=== PATIENT | female | born 1940 | race Caucasian/White ===

== ENCOUNTER 2020-09-08 07:41 | Emergency (ER) | payer MEDICARE, SELFPAY ==
[2020-09-08 07:41] VITALS: BP 157/67; PULSE 105; RESP 24; TEMP 36.4; O2SAT 95; BMI 31.7
--- NOTE | 2020-09-08 07:52 | NURSING ---
NO OLD EKGS
--- NOTE | 2020-09-08 08:07 | RAD_ITS ---
STUDY: X-RAY CHEST REASON FOR EXAM: Female, 80 years old. Previous history of breast cancer. TECHNIQUE: Single AP portable view of the chest. COMPARISON: Prior comparison studies are not available for review at this time. FINDINGS: The opacity left retrocardiac region obscuring the left hemidiaphragm. Small left pleural effusion. There is mild cardiac enlargement. Normal mediastinum and raven. Normal visualized pulmonary arteries. Mild degenerative changes in the thoracic spine. Surgical clips in the left axilla. There is no demonstrated abnormality of the visualized soft tissue structures of the upper abdomen. RAD/Chest 1 View (Portable) IMPRESSION: Left retrocardiac infiltrate and small left pleural effusion. Electronically Signed: Vish Groves MD at 8:55 EST Tel , Service support ,
--- NOTE | 2020-09-08 08:08 | EKG12_ITS ---
Test Reason : Blood Pressure : / mmHG Vent. Rate : 075 BPM Atrial Rate : 072 BPM P-R Int : 000 ms QRS Dur : 072 ms QT Int : 368 ms P-R-T Axes : 000 006 058 degrees QTc Int : 410 ms Atrial fibrillation with premature ventricular or aberrantly conducted complexes Low voltage QRS Abnormal ECG Confirmed by KARLIE SANTANA, JUNAID ([id number]), senior technical editor NICK SEGAL ([id number]) on 09/10/2020 10:33:45 AM Referred By: CHARLI Confirmed By:JUNAID ZIEGLER MD
--- NOTE | 2020-09-08 08:11 | ED.DCSUM_ITS ---
- ER Visit Summary Date of Service: 09/08/20 Chief Complaint: Shortness of breath and nausea History of Present Illness: The patient is a 80 F who presents with shortness of breath and nausea for the past 3 days. Patient states this began after her most recent chemotherapy treatment. Patient states she feels swollen. Patient states it feels like she is having some swelling in her neck which is causing her to have breathing problems. Patient denies any vomiting. Patient states she has been drinking some fluids which has been helping. Patient does admit to some pain in her chest. Patient denies any fevers or chills. Patient does admit to some pain in her back. Patient also admits to some paresthesias in her left arm. Physical Examination: Vital signs are stable except for mild tachycardia of 105 and a mild tachypnea of 24. Patient is afebrile here. Patient is in no acute distress. Oral mucosa is pink and moist. Neck is supple. Trachea is midline. Airway is patent. Heart was regular rate and rhythm. Lungs are clear and equal bilaterally. Abdomen is soft. Bowel sounds are normal. There is mild diffuse tenderness. There is no rebound or guarding noted. Extremities are intact. There is no calf tenderness or edema. Cranial nerves II through XII are intact. There are no focal motor or sensory deficits noted. Test Results: EKG was obtained. On my interpretation, shows a normal sinus rhythm with a rate of 81. There are no acute ST or T wave changes noted. Portable chest x-ray was obtained. There is 1 view. On my interpretation, there is a left pleural effusion and left lower lobe infiltrate. There is some mild cardiomegaly noted. Bony thorax is normal. There is no pneumothorax. Radiologist also interpreted the x-ray and agrees. CBC, comprehensive metabolic profile, and urinalysis were obtained were all within normal limits. Troponin was normal. Emergency Department Course and Treatment: Patient was given a dose of morphine and Zofran here. Patient was given IV fluids. Patient was given a repeat dose of morphine. Patient was advised of her findings. Patient was given her first dose of Zithromax here. Patient was given a prescription for Zithromax. Parvin ent was given a prescription for tramadol since she is allergic to oxycodone. Patient was instructed to follow-up with her primary care physician and oncologist as scheduled. Patient understood and was agreeable with the plan. All questions were answered. Disposition: Discharge home Impression: 1. Pneumonia This note was generated with [employer] dictation software. It may contain incorrect words, spelling, and punctuation that were not noted in review of the chart prior to signing ED Disposition - Plan for ED Patient: Disposition: Home or Assisted Living Diagnosis: Pneumonia Instructions: ED Pneumonia (Adult) Prescriptions: traMADol [Ultram] 50 mg PO Q4H PRN PRN 3 Days #20 tab PRN Reason: Pain Prescription Printed Azithromycin [Zithromax] 250 mg PO DAILY #4 tab Prescription Printed Referrals: Amador Oropeza MD [Primary Care Provider] - 3-5 Days
[2020-09-08 08:19] LABS: Absolute Lymphocyte Count 0.64 X10^3/uL (0.83-4.51); Absolute Neutrophil Count 6.7 X10^3/uL (2.0-7.7); Basophil# 0.06 X10^3/uL; Basophil% 0.8 % (0-1); Hematocrit 41.1 % (37-47); Hemoglobin 13.2 g/dL (12.0-15.0); Lymphocyte # 0.64 X10^3/ul (4.0); Lymphocyte % 8.5 % (19-41); Mean Corp Hgb Conc 32.1 g/dL (32-36); Mean Corpuscular Hgb 29.9 pg (27.0-32.0); Mean Corpuscular Volume 93.2 fL (81-99); Mean Platelet Vol. 9.6 fl (6.2-12.0); Monocyte# 0.06 X10^3/uL; Monocyte% 0.8 % (0-10); NRBC Flagged by Analyzer 0 % (0-5); Neutrophil # 6.74 X10^3/uL (2.7-7.7); Neutrophil % 89.4 % (47-70); Platelet Count 237 K/mm3 (150-450); RBC Distribution Width CV 16.3 % (11.6-14.6); RBC Distribution Width SD 55.5 fl (35.1-43.9); Red Blood Count 4.41 M/mm3 (4.2-5.4); White Blood Count 7.5 K/mm3 (4.4-11.0)
[2020-09-08 08:32] LABS: ALB/GLOB Ratio 0.7 RATIO (0.9-2.4); AST(SGOT) 90 U/L (15-37); Alanine Aminotransfer ALT/SGPT 74 U/L (13-56); Albumin, Serum 2.5 g/dL (3.2-5.0); Alkaline Phosphatase 115 U/L (45-117); Anion Gap 4 (5-15); BUN 15 mg/dL (7-18); BUN/Creat Ratio 30.2 RATIO (10-20); Calcium,Total 7.8 mg/dL (8.5-10.1); Chloride 103 mmol/L (98-107); EST Glomerular Filtration Rate 127 mL/min (>60); Est Glom Filt Rate - Afr Amer 154 mL/min (>60); Estimated Creatinine Clearance 38.75 ml/min; Globulin 3.5 g/dL (2.2-4.2); Glucose 126 mg/dL (74-106); Potassium 3.8 mmol/L (3.5-5.1); Sodium Level 137 mmol/L (136-145)
[2020-09-08] MEDS: Ondansetron 4 MG/2 ML Vial IV (08:36)
[2020-09-08] MEDS: Morphine 4 MG/ML Syringe IV ×2 (08:36→09:50)
[2020-09-08] MEDS: 0.9% Normal Saline 1,000 ML 1000 ML IV (08:36)
[2020-09-08 08:41] VITALS: BP 123/73; PULSE 88; RESP 18; O2SAT 99
[2020-09-08 09:14] VITALS: BP 122/57; PULSE 80; RESP 20; O2SAT 95
--- NOTE | 2020-09-08 09:49 | ED.RN ---
pt states --i had to pee more i just didnt pee in the cup
[2020-09-08 09:50] LABS: Mucous, Urine 0 SEEN /hpf (<or=2+); Red Blood Cells-Urine 0 SEEN /hpf (0-5)
[2020-09-08 09:54] LABS: Color, Urine Yellow (Yellow); Glucose, Dipstick Normal (Normal); Ketone-Dipstick 15 mg/dl (Negative); Leukocyte Esterase-Dipstick 100 /ul (Negative); Nitrite-Dipstick Negative (Negative); Occult Blood-Urine 10 /ul (Negative); Protein-Dipstick Negative (Negative); Urine Bilirubin Dipstick Negative (Negative); Urine Clarity Sl. Cloudy (Clear); Urine Urobilinogen 1 mg/dl (Normal)
[2020-09-08 10:03] LABS: Bacteria RARE /hpf (None Seen); Squamous Epithelial Cells - UA 0-5 SEEN /hpf (5-10); White Blood Cells 0-5 SEEN /hpf (0-5)
[2020-09-08 10:19] VITALS: BP 135/61; PULSE 82; RESP 20; O2SAT 96
[2020-09-08] MEDS: Azithromycin 250 MG Tablet 500 MG PO (11:15)
[2020-09-08 11:18] VITALS: BP 142/59; PULSE 84; RESP 20; O2SAT 96
== END 2020-09-08 11:27 | disposition home or self-care (01) ==
PROVIDERS: Emergency Provider Emergency Medicine; PCP Family Medicine
DX: J18.9 Pneumonia, unspecified organism (principal)
CPT/HCPCS: 71045; 80053; 81001; 84484; 85025; 93005; 96361; 96374; 96375; 96376; 99285; J7030; A4216; J2405

== ENCOUNTER 2020-09-09 07:09 | Observation (INO) | payer MEDICARE, SELFPAY ==
[2020-09-08 07:41] VITALS: BMI 31.7
[2020-09-09] VITALS (7 sets, daily range): BP systolic 120–132; BP diastolic 52–73; PULSE 83–106; RESP 20–22; TEMP 36.2–37.2; O2SAT 95–97; BMI 30.9; BMI 33.4
--- NOTE | 2020-09-09 07:15 | ED.RN ---
Pt upset that we did not give her fluids yesterday and is upset that Dr Amador was not here to meet her when she arrived. Pt states that you nurses didnt do a damn thing for me when explained to that we can only do what the Dr orders she stated that the Dr was incompetent
--- NOTE | 2020-09-09 07:26 | EKG12_ITS ---
Test Reason : CP Blood Pressure : / mmHG Vent. Rate : 081 BPM Atrial Rate : 081 BPM P-R Int : 134 ms QRS Dur : 068 ms QT Int : 352 ms P-R-T Axes : 055 008 059 degrees QTc Int : 408 ms Normal sinus rhythm Low voltage QRS Borderline ECG Confirmed by KARLIE SANTANA, JUNAID ([id number]), supervising editor news reel NICK SEGAL ([id number]) on 09/10/2020 10:23:41 AM Referred By: MATT Confirmed By:JUNAID ZIEGLER MD
--- NOTE | 2020-09-09 07:27 | RAD_ITS ---
STUDY: X-RAY CHEST REASON FOR EXAM: Female, 80 years old. Worsening shortness of breath, nausea TECHNIQUE: Single AP portable view of the chest. COMPARISON: Yesterday FINDINGS: Stable opacification in the retrocardiac region obscuring the left hemidiaphragm. Small left pleural effusion. There is mild cardiac enlargement. Normal mediastinum and raven. Normal visualized pulmonary arteries. Mild degenerative changes in the thoracic spine. Surgical clips in the left axilla. There is no demonstrated abnormality of the visualized soft tissue structures of the upper abdomen. RAD/Chest 1 View (Portable) IMPRESSION: No interval change Electronically Signed: Anibal Simmons MD at 9:10 EST , Service support ,
[2020-09-09] MEDS: Morphine 4 MG/ML Syringe IV ×2 (07:44→09:04)
[2020-09-09] MEDS: 0.9% Normal Saline 1,000 ML 1000 ML IV (07:44)
[2020-09-09] MEDS: Ondansetron 4 MG/2 ML Vial IV ×2 (07:44→10:45)
[2020-09-09 07:45] LABS: Absolute Neutrophil Count 4.2 X10^3/uL (2.0-7.7); Basophil# 0.04 X10^3/uL; Basophil% 0.8 % (0-1); Eosinophils% 1.9 % (0-5); Hematocrit 38.6 % (37-47); Hemoglobin 12.3 g/dL (12.0-15.0); Lymphocyte % 13.6 % (19-41); Mean Corp Hgb Conc 31.9 g/dL (32-36); Mean Corpuscular Hgb 29.9 pg (27.0-32.0); Mean Corpuscular Volume 93.9 fL (81-99); Mean Platelet Vol. 8.9 fl (6.2-12.0); Monocyte# 0.06 X10^3/uL; Monocyte% 1.2 % (0-10); NRBC Flagged by Analyzer 0 % (0-5); Neutrophil # 4.22 X10^3/uL (2.7-7.7); Neutrophil % 82.1 % (47-70); Platelet Count 224 K/mm3 (150-450); RBC Distribution Width CV 16.3 % (11.6-14.6); RBC Distribution Width SD 56.3 fl (35.1-43.9); Red Blood Count 4.11 M/mm3 (4.2-5.4); White Blood Count 5.1 K/mm3 (4.4-11.0)
[2020-09-09 08:01] LABS: ALB/GLOB Ratio 0.7 RATIO (0.9-2.4); AST(SGOT) 228 U/L (15-37); Alanine Aminotransfer ALT/SGPT 186 U/L (13-56); Albumin, Serum 2.3 g/dL (3.2-5.0); Alkaline Phosphatase 178 U/L (45-117); Anion Gap 5 (5-15); BUN 17 mg/dL (7-18); BUN/Creat Ratio 27.5 RATIO (10-20); Calcium,Total 7.9 mg/dL (8.5-10.1); Chloride 101 mmol/L (98-107); Creatinine, Serum 0.62 mg/dL (0.55-1.02); EST Glomerular Filtration Rate 99 mL/min (>60); Est Glom Filt Rate - Afr Amer 120 mL/min (>60); Estimated Creatinine Clearance 38.75 ml/min; Globulin 3.4 g/dL (2.2-4.2); Glucose 131 mg/dL (74-106); Lipase 47 U/L (73-393); Potassium 3.6 mmol/L (3.5-5.1); Protein, Total 5.7 g/dL (6.4-8.2); Sodium Level 135 mmol/L (136-145)
--- NOTE | 2020-09-09 08:17 | ED.DCSUM_ITS ---
History of Present Illness Chief Complaint: Nausea/Vomiting Informant: Patient Onset: Days Maximum Severity: Mild Narrative: Presents complaining of vomiting unable to eat or drink cannot function or live at home, She was seen about 12 hours ago in the emergency department for the above she was diagnosed with possible left-sided pneumonia discharged home she had improved reports on repeat returning to home she had persistent vomiting and do es not feel she can function at home. She has a history of left breast cancer 2017 mastectomy with recurrence with metastasis to the chest wall July 2020 she has been on chemotherapy since then. Reports she had chemotherapy a few days ago that caused her to be nauseous and vomit quite a bit no real diarrhea no fever no cough no coronavirus exposures, She negates the chemotherapy is quite taxing to her and her chemotherapy has to be held sometimes she is not sure of her prognosis she is not sure if she is due for more chemo she does not believe she is had radiation therapy, She denies a history of NC PE DVT no GI issues, her current complaint is severe nausea Past Medical History - Allergies and Home Meds Allergies/Adverse Reactions: Allergies oxycodone Adverse Reaction (Verified 09/08/20 07:43) Vomiting Primary Care Physician: Amador Oropeza MD [Primary Care Provider] - Past Medical History: - - Breast cancer as above recent chemotherapy and as above Smoking Status: Never smoker Review of Systems General: Denies: Chills, Fever, Sweats Eyes: Denies: Visual changes - bilaterally, Diplopia ENT: Denies: Rhinorrhea, Sore throat Cardiovascular: Denies: Chest pain, Palpitations Respiratory: Denies: Dyspnea, Cough, Dyspnea on exertion Gastrointestinal: Reports: Nausea, Vomiting. Denies: Abdominal pain, Diarrhea, Melena, Hematochezia Genitourinary: Denies: Dysuria, Hematuria, Frequency Musculoskeletal: Denies: Back pain, Extremity Pain Skin: Denies: Rash, Wounds Neurological: Denies: Headache, Weakness, Numbness Physical Exam Vital Signs/Narrative: Vital Signs Temp Pulse Resp BP Pulse Ox 09/09/20 07:09 98.9 F 92 22 H 122/63 H 97 General: Well nourished, Well developed, No Acute Distress Head: Normocephalic, Atraumatic Eyes: Perrl, EOMI ENT: Moist mucous membranes, No rhinorrhea Neck: Supple, Nontender Cardiovascular: Regular rate, Regular rhythm, No murmurs, - - Mastectomy incision she indicates she has metastasis to this area she has some mild swelling to the upper arms related to the surgery and or the metastasis, there is no signs of active infection or any active issues Respiratory: No distress, CTA bilaterally, Chest nontender Abdomen: Soft, Nontender, Nondistended, Normal bowel sounds Back: Nontender, Normal Inspection Extremities: Nontender, No edema Skin: Normal color, No rash Neurological: Alert, Oriented x3, Cranial nerves II-XII grossly intact, Normal Strength, Normal Sensation Psychological: Normal affect, Normal Mood Diagnostic/Tx/Re-eval - Medical Decision Making Differential is extensive she has had breast cancer chemotherapy failed outpatient management, she indicates she was diagnosed with a pneumonia on her left lung when she was here yesterday at this time ED screening evaluation IV fluids Zofran The patient screening labs show elevated liver enzymes, X-ray to my review 1 view show left pleural effusion, may be cardiomegaly, see the radiology report generally concur, given all the above and failure of outpatient management spoke with the hospitalist will arrange for admission patient again indicates the pertinent information and studies she has done by her oncologist her metastasis is to the chest wall not to the lung or other parts of her body, given the potential for extension of disease hospitalist will arrange for further management inpatient basis Admit stable Impression final metastatic breast cancer, intractable nausea and vomiting, recent chemotherapy, left pleural effusion ED Disposition - Plan for ED Patient: Diagnosis: Metast breast cancer intractable nausea Referrals: Amador Oropeza MD [Primary Care Provider] -
[2020-09-09 08:51] LABS: Color, Urine Yellow (Yellow); Glucose, Dipstick Normal (Normal); Ketone-Dipstick 50 mg/dl (Negative); Leukocyte Esterase-Dipstick 500 /ul (Negative); Nitrite-Dipstick Negative (Negative); Occult Blood-Urine 10 /ul (Negative); Protein-Dipstick 30 mg/dl (Negative); Urine Bilirubin Dipstick Negative (Negative); Urine Clarity Sl. Cloudy (Clear); Urine Urobilinogen 1 mg/dl (Normal)
[2020-09-09 09:02] LABS: Bacteria 1+ /hpf (None Seen); Mucous, Urine 2+ /hpf (<or=2+); Red Blood Cells-Urine 0-5 SEEN /hpf (0-5); Squamous Epithelial Cells - UA 5-10 SEEN /hpf (5-10); Transitional Epithelial - Ur 0-5 SEEN /hpf (0-5); White Blood Cells 5-10 SEEN /hpf (0-5)
--- NOTE | 2020-09-09 10:04 | US_ITS ---
STUDY: ABDOMINAL ULTRASOUND - RIGHT UPPER QUADRANT REASON FOR VISIT: Female, 80 years old ELEVATED LIVER ENZYMES -- N/V -- ON CHEMO -- HX OF METEASTATIC BREAST CA -- HX OF CHOLECYSTECTOMY 15 YEARS AGO TECHNIQUE: Ultrasound evaluation of the right upper quadrant was performed with real-time and static stanley-scale imaging. TECHNICAL QUALITY: Adequate. COMPARISON: None. FINDINGS: Liver: The liver measures 16.1 cm. There is a heterogeneous echogenicity of the liver. The bile ducts are within normal limits. There is hepatic color flow. The direction of portal flow is hepatopetal. There is no demonstrated mass lesion. Gallbladder: The patient is status post cholecystectomy.. Common Bile Duct (C.B.D.): The common bile duct measures 10 mm. Pancreas: Normal size of the head, body and tail of the pancreas. There is normal echogenicity of the pancreas. There is no demonstrated pancreatic mass or cyst. Right Kidney: Normal size of the right kidney. The right kidney measures 11.2 cm. Normal renal cortex. The right cortex measures 1.1 cm. There is no demonstrated renal mass or cyst. There is no right hydronephrosis. US/Abdomen Limited IMPRESSION: Heterogeneous hepatic echotexture which may be secondary to cirrhosis or hepatitis. Mass including metastatic disease is of concern, correlation with the CT would be useful. Small amount of ascites. Electronically Signed: Kiko Farah MD at 13:36 EST Tel , Service support ,
--- NOTE | 2020-09-09 10:04 | PCM.HP.STD ---
Problem List (1) Nausea and vomiting Status: Acute Qualifiers: Vomiting type: unspecified Vomiting Intractability: unspecified Qualified Code(s): R11.2 - Nausea with vomiting, unspecified History of Present Illness Date of Admission: 09/09/20 Chief Complaint: Nausea and vomiting The patient is a 80 year old F who was seen in the emergency room at [facility] today with complaints of nausea and vomiting. She was seen in the ER yesterday at [facility] and was diagnosed as having a pneumonia, was placed on Zithromax and discharged home. Patient denies any fevers or chills, she denies any abdominal discomfort. Patient is being actively treated for recurrence of breast cancer which first occurred in 2018. I talked with her oncologist by phone today who states that she had a CT of her chest and abdomen performed around of this year, it showed a pleural effusion on the left side, no discernible liver metastases were noted. Patient did have lymphadenopathy on the chest CT. 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 She is on Lovenox 80 mg subcu every 12 hours. Work-up in the emergency room today included a CBC which was unremarkable, patient's chemistry panel was remarkable for an elevated AST, ALT, and alkaline phosphatase. According to her oncologist, her liver enzymes have not been elevated before. Patient did undergo chemo on Thursday this past week. Chest x-ray obtained today shows a sizable left pleural effusion, no discernible infiltrates were noted by this examiner on inspection of the chest x-ray images. Patient will be admitted for uncontrolled nausea and vomiting, she will be given IV fluids and antiemetics, I talked at length with the patient's daughter about her medical care. Daughter states that the patient was not happy when she was released from the emergency room yesterday and felt she needed to be admitted for IV fluid administration. Patient is not hypoxic at this time on room air, she may have to undergo a thoracentesis however because the daughter states that she is short of breath at home on exertion. I will have nursing walker today on room air to see if there is a desaturation. Past Medical History Allergies oxycodone Adverse Reaction (Verified 09/08/20 07:43) Vomiting Home Medications: Ambulatory Orders Medication Instructions Recorded Azithromycin [Zithromax] 250 mg PO DAILY #4 tab 09/08/20 traMADol [Ultram] 50 mg PO Q4H PRN PRN 3 Days #20 tab 09/08/20 Surgical History: appendectomy, cataract, cholecystectomy, hysterectomy, - - Double mastectomy Psychiatric History: No pertinent psych hx PUBLIC HEALTH REPRESENTATIVE History: No pertinent PUBLIC HEALTH REPRESENTATIVE history Lives: Spouse/ Significant Other Smoking Status: Never smoker Tobacco Use: Non-smoker Alcohol: None Drugs: None - *Family History Maternal History Items: Heart Disease Paternal History Items: - - Alcoholism Review of Systems Constitutional: Denies: Anorexia, Chills, Fever, Night Sweats, Malaise, Weakness, Weight Change, Fatigue Eyes: Denies: Cataracts, Conjunctivae Inflammation, Double vision, Drainage HEENT: Denies: Dysphasia, Ear Pain, Eye Pain, Hearing Changes, Nasal bleeding, Nasal Congestion, Post Nasal Drip Cardiovascular: Denies: Chest Pain, Claudication, Chest Pressure, Chest Tightness, Edema, Palpitations Respiratory: Reports: Shortness of Breath, Shortness of breath upon exertion. Denies: Cough, Hemoptysis, Pleuritic Pain, Shortness of breath at rest Gastrointestinal: Denies: Abdominal Pain, Constipation, Diarrhea, Hematemesis, Hematochezia, Nausea, Melena, Vomiting Genitourinary: Denies: Dysuria, Frequency, Hematuria, Hesitancy, Nocturia, Retention, Urgency Gynecological: Reports: Breast symptoms - Recent history of recurrent metastatic breast cancer Musculoskeletal: Denies: Foot Pain, Hand Pain, Joint Pain, Joint stiffness, Joint swelling, Joint Tenderness, Leg Pain Skin: Denies: Dryness, Jaundice, Pruritis, Rash Neurological: Denies: Blurred vision, Double vision, Change in Speech, Slurred speech, Difficulty swallowing, Focal weakness, Headaches, Incoordination, Numbness, Tingling Psychiatric: Denies: Anxiety, Depression, Homicidal Ideations, Suicidal Ideations Endocrine: Denies: Change in Body Habitus, Heat/ Cold Intolerance, Polydipsia, Polyuria Hematologic/ Lymphatic: Reports: Hx of blood clot - Recent history of VTE left arm secondary to compression of the venous return from recurrent left breast cancer. Denies: Adenopathy, Anemia, Easy Bruising, Easy Bleeding, Petechiae, Purpura VTE Information - Inpt Only VTE Present on Admission: Yes - Patient was recently diagnosed with VTE of the left arm, she is under treat VTE Mechan Device Prophylaxis: None VTE Pharm Prophylaxis ordered?: No - Physical Exam Vitals/I&O's: Vital Signs Temp Pulse Resp BP Pulse Ox 98.9 F 92 22 H 122/63 H 97 09/09/20 07:09 09/09/20 07:09 09/09/20 07:09 09/09/20 07:09 09/09/20 07:09 Oxygen Delivery Method Room Air Weight: 81.647 kg Body Mass Index (BMI) 30.9 General: Alert, Oriented x3, Cooperative, Well developed, Well nourished, - - Patient appears nauseated HEENT: Atraumatic, PERRLA, EOMI, Normocephalic Oral: Moist Mucosa Neck: Supple, No JVD, Negative Carotid Bruits, Trachea Midline, Thyroid Normal Size and Texture Lungs: Clear to auscultation, Normal air movement, No rhonchi, No wheeze, No rales Cardiovascular: Regular rate, Regular Rhythm, Normal S1, Normal S2, No murmurs, No Ectopic Activity, PMI Normal, No rub noted, No Gallop Abdomen: Bowel Sounds Present, Soft, Non Tender, Non-Distended Extremities: No clubbing, No cyanosis, No edema, Capillary Refill Less than 3 Seconds Skin: No rashes, No breakdown Musculoskeletal: No Tenderness to Palpation of Joints or Extremities Neurological: Cranial nerves II-XII grossly intact, Neuro grossly intact, Sensory exam intact to light touch and pain Psych/Mental Status: Normal Affect, Appropriate, Alert and oriented to time, place, person, mood and affect Laboratory Results 09/09/20 07:37: WBC 5.1, RBC 4.11 L, Hgb 12.3, Hct 38.6, MCV 93.9, MCH 29.9, MCHC 31.9 L, RDW Std Deviation 56.3 H, RDW Coeff of Katelyn 16.3 H, Plt Count 224, MPV 8.9, Immature Gran % (Auto) 0.400, Neut % (Auto) 82.1 H, Lymph % (Auto) 13.6 L, [place] % (Auto) 1.2, Eos % (Auto) 1.9, Baso % (Auto) 0.8, Absolute Neuts (auto) 4.2, Absolute Lymphs (auto) 0.70 L, Nucleated RBC % 0 01/10/21 07:37: Sodium 135 L, Potassium 3.6, Chloride 101, Carbon Dioxide 29.0, Anion Gap 5, BUN 17, Creatinine 0.62, Estim Creat Clear Calc 38.75, Est GFR (MDRD) Af Amer 120, Est GFR (MDRD) Non-Af 99, BUN/Creatinine Ratio 27.5 H, Glucose 131 H, Calcium 7.9 L, Total Bilirubin 0.70, AST 228 H, ALT 186 H, Alkaline Phosphatase 178 H, Total Protein 5.7 L, Albumin 2.3 L, Globulin 3.4, Albumin/Globulin Ratio 0.7 L, Lipase 47 L 09/09/20 08:43: Urine Color Yellow, Urine Clarity Sl. Cloudy, Urine pH 6.0, Ur Specific Robinson 1.020, Urine Protein 30 H, Urine Glucose (UA) Normal, Urine Ketones 50 H, Urine Occult Blood 10 H, Urine Nitrite Negative, Urine Bilirubin Negative, Urine Urobilinogen 1 H, Ur Leukocyte Esterase 500 H, Urine RBC 0-5 SEEN, Urine WBC 5-10 SEEN, Ur Squamous Epith Cells 5-10 SEEN, Ur Transition Epith Cell 0-5 SEEN, Urine Bacteria 1+, Urine Mucus 2+ Assessment/Plan All Active Problems Nausea and vomiting (Acute) #1 nausea and vomiting-etiology unclear at this point, patient will be placed in observation status on MedSurg 3, she will receive IV fluids and antiemetics, labs will be monitored. #2 elevated liver enzymes-exact etiology unclear at this point, patient will undergo an ultrasound of the liver, labs will be rechecked #3 chronic left pleural effusion-we will have the patient ambulate on room air, if her O2 sat drops, she will need a left thoracentesis performed. #4 recent VTE left arm-patient is currently on Lovenox 80 mg twice daily #5 Metastatic breast cancer #6 essential hypertension-patient does not know all of her blood pressure medications, I have asked the daughter to call in with a list of her medications. OBSV E&M: [id number] Initial observation care L3
[2020-09-09] MEDS: 0.9% Normal Saline 1,000 ML 125 ML IV ×2 (10:37→20:17)
[2020-09-09] MEDS: Enoxaparin 80 MG/0.8 ML Syringe SC ×2 (10:37→20:34)
[2020-09-09] MEDS: fentaNYL 100 MCG/2 ML Ampul 50 MCG IV (11:43)
[2020-09-09] MEDS: proMETHazine 25 MG Tablet PO (12:17)
--- NOTE | 2020-09-09 16:02 | NURSING ---
Patient ambulated a couple of minutes in room on room air and the lowest her pulse ox dropped was 95%. Dr. Coffey states no thoracentesis. Patient made aware.
[2020-09-09] MEDS: Gabapentin 300 MG Capsule PO (20:33)
[2020-09-09] MEDS: fentaNYL 100 MCG/2 ML Ampul 25 MCG IV (23:36)
[2020-09-10] VITALS (13 sets, daily range): BP systolic 131–147; BP diastolic 62–73; PULSE 81–100; RESP 16–22; TEMP 36.3–37.1; O2SAT 92–96
[2020-09-10] MEDS: 0.9% Normal Saline 1,000 ML 125 ML IV ×4 (03:38→20:11)
[2020-09-10 04:56] LABS: Absolute Lymphocyte Count 1.11 X10^3/uL (0.83-4.51); Absolute Neutrophil Count 2.3 X10^3/uL (2.0-7.7); Basophil# 0.05 X10^3/uL; Basophil% 1.4 % (0-1); Eosinophil# 0.04 X10^3/uL; Eosinophils% 1.1 % (0-5); Hematocrit 31.5 % (37-47); Hemoglobin 10.2 g/dL (12.0-15.0); Lymphocyte # 1.11 X10^3/ul (4.0); Lymphocyte % 30.7 % (19-41); Mean Corp Hgb Conc 32.4 g/dL (32-36); Mean Corpuscular Hgb 30.6 pg (27.0-32.0); Mean Corpuscular Volume 94.6 fL (81-99); Mean Platelet Vol. 9.1 fl (6.2-12.0); Monocyte# 0.05 X10^3/uL; Monocyte% 1.4 % (0-10); NRBC Flagged by Analyzer 0 % (0-5); Neutrophil # 2.34 X10^3/uL (2.7-7.7); Neutrophil % 64.8 % (47-70); Platelet Count 198 K/mm3 (150-450); RBC Distribution Width CV 16.3 % (11.6-14.6); RBC Distribution Width SD 56.3 fl (35.1-43.9); Red Blood Count 3.33 M/mm3 (4.2-5.4); White Blood Count 3.6 K/mm3 (4.4-11.0)
[2020-09-10 05:15] LABS: ALB/GLOB Ratio 0.7 RATIO (0.9-2.4); AST(SGOT) 191 U/L (15-37); Alanine Aminotransfer ALT/SGPT 165 U/L (13-56); Albumin, Serum 1.9 g/dL (3.2-5.0); Alkaline Phosphatase 191 U/L (45-117); Anion Gap 5 (5-15); BUN 15 mg/dL (7-18); BUN/Creat Ratio 36.3 RATIO (10-20); Chloride 108 mmol/L (98-107); Creatinine, Serum 0.41 mg/dL (0.55-1.02); EST Glomerular Filtration Rate 157 mL/min (>60); Est Glom Filt Rate - Afr Amer 190 mL/min (>60); Estimated Creatinine Clearance 38.75 ml/min; Globulin 2.8 g/dL (2.2-4.2); Glucose 91 mg/dL (74-106); Potassium 3.3 mmol/L (3.5-5.1); Protein, Total 4.7 g/dL (6.4-8.2); Sodium Level 140 mmol/L (136-145)
[2020-09-10] MEDS: Gabapentin 300 MG Capsule PO ×3 (05:33→20:30)
[2020-09-10] MEDS: 0.9% Saline Lock 10 ML Syringe IV ×2 (07:46→18:37)
[2020-09-10] MEDS: fentaNYL 100 MCG/2 ML Ampul 25 MCG IV ×3 (07:47→18:37)
--- NOTE | 2020-09-10 07:57 | PN_ITS ---
Patient Problems: Active and Suspected Problems Nausea and vomiting (Acute) Reason for Visit: Nausea and vomiting Hypokalemia Subjective: Patient is an 80-year-old lady with history of recurrent metastatic breast CA currently undergoing chemo admitted with intractable nausea vomiting Objective: GENERAL: cooperative HEENT: Atraumatic; EYES; Anicteric, Normal Conjunctiva NECK; supple, normal thyroid, RESPIRATORY: Diminished to auscultation CARDIOVASCULAR: Regular S1 S2, GI: soft, normoactive bowel sounds, : No Renal angle tenderness; EXTREMITIES: No edema, no clubbing, MUSCULOSKELETAL: no muscle waisting NEURO: Awake; no lateralizing signs. SKIN: No Rash PSYCH; Flat affect Vitals/I&O's: Vital Signs Temp Pulse Resp BP Pulse Ox 97.4 F L 98 18 147/62 H 96 09/10/20 07:51 09/10/20 07:51 09/10/20 07:51 09/10/20 07:51 09/10/20 07:51 Oxygen Delivery Method Room Air Weight: 88.36 kg Body Mass Index (BMI) 33.4 Intake and Output for Last 24 Hours 09/08/20 09/09/20 09/10/20 23:59 23:59 23:59 Intake Total 2350.00 / 2350.00 918.75 / 918.75 Output Total 100 / 100 Balance 2250.00 / 2250.00 918.75 / 918.75 Laboratory Results 09/09/20 07:37: Sodium 135 L, Potassium 3.6, Chloride 101, Carbon Dioxide 29.0, Anion Gap 5, BUN 17, Creatinine 0.62, Estim Creat Clear Calc 38.75, Est GFR (MDRD) Af Amer 120, Est GFR (MDRD) Non-Af 99, BUN/Creatinine Ratio 27.5 H, Glucose 131 H, Calcium 7.9 L, Total Bilirubin 0.70, AST 228 H, ALT 186 H, Alkaline Phosphatase 178 H, Total Protein 5.7 L, Albumin 2.3 L, Globulin 3.4, Albumin/Globulin Ratio 0.7 L, Lipase 47 L 09/09/20 08:43: Urine Color Yellow, Urine Clarity Sl. Cloudy, Urine pH 6.0, Ur Specific [place] 1.020, Urine Protein 30 H, Urine Glucose (UA) Normal, Urine Ketones 50 H, Urine Occult Blood 10 H, Urine Nitrite Negative, Urine Bilirubin Negative, Urine Urobilinogen 1 H, Ur Leukocyte Esterase 500 H, Urine RBC 0-5 SEEN, Urine WBC 5-10 SEEN, Ur Squamous Epith Cells 5-10 SEEN, Ur Transition Epith Cell 0-5 SEEN, Urine Bacteria 1+, Urine Mucus 2+ 09/10/20 04:40: WBC 3.6 L, RBC 3.33 L, Hgb 10.2 L, Hct 31.5 L, MCV 94.6, MCH 30.6, MCHC 32.4, RDW Std Deviation 56.3 H, RDW Coeff of Katelyn 16.3 H, Plt Count 198, MPV 9.1, Immature Gran % (Auto) 0.600, Neut % (Auto) 64.8, Lymph % (Auto) 30.7, [place] % (Auto) 1.4, Eos % (Auto) 1.1, Baso % (Auto) 1.4 H, Absolute Neuts (auto) 2.3, Absolute Lymphs (auto) 1.11, Nucleated RBC % 0 09/10/20 04:40: Sodium 140, Potassium 3.3 L, Chloride 108 H, Carbon Dioxide 27.0, Anion Gap 5, BUN 15, Creatinine 0.41 L, Estim Creat Clear Calc 38.75, Est GFR (MDRD) Af Amer 190, Est GFR (MDRD) Non-Af 157, BUN/Creatinine Ratio 36.3 H, Glucose 91, Calcium 7.0 L, Total Bilirubin 0.70, AST 191 H, ALT 165 H, Alkaline Phosphatase 191 H, Total Protein 4.7 L, Albumin 1.9 L, Globulin 2.8, A lbumin/Globulin Ratio 0.7 L Current Medications Amlodipine Besylate (Amlodipine 5 Mg Tablet) 5 mg PO DAILY [facility] Anastrozole (Anastrozole 1 Mg Tablet) 1 mg PO DAILY [facility] Enoxaparin Sodium (Enoxaparin 80 Mg/0.8 Ml Syringe) 80 mg SC Q12 [facility] Last Admin: 09/09/20 20:34 Dose: 80 mg Documented by: Fentanyl Citrate (Fentanyl 100 Mcg/2 Ml Ampul) 25 mcg IV Q4H PRN PRN PRN Reason: Pain Score 1-10 Last Admin: 09/10/20 07:47 Dose: 25 mcg Documented by: Gabapentin (Gabapentin 300 Mg Capsule) 300 mg PO TID [facility] Last Admin: 09/10/20 05:33 Dose: 300 mg Documented by: Sodium Chloride () 1,000 mls @ 125 mls/hr IV .Q8H [facility]HAL[facility] Last Admin: 09/10/20 03:38 Dose: 125 mls/hr Documented by: Losartan Potassium (Losartan Potassium 50 Mg Tablet) 50 mg PO DAILY [facility] Ondansetron HCl (Ondansetron 4 Mg/2 Ml Vial) 4 mg IV Q6H PRN PRN PRN Reason: NAUSEA/VOMITING Last Admin: 09/09/20 10:45 Dose: 4 mg Documented by: Pantoprazole Sodium (Pantoprazole Sodium 20 Mg Tablet) 20 mg PO DAILY [facility] Sodium Chloride (0.9% Saline Lock 10 Ml Syringe) 10 - 40 ml IV UD PRN PRN Reason: SALINE FLUSH Last Admin: 09/10/20 07:46 Dose: 10 ml Documented by: Temazepam (Temazepam 15 Mg Capsule) 15 mg PO QHS PRN PRN PRN Reason: INSOMNIA STROKE Vital Signs/Narrative: Vital Signs Temp Pulse Resp BP Pulse Ox 09/10/20 07:51 97.4 F L 98 18 147/62 H 96 09/10/20 04:07 98.7 F 92 16 131/72 H 94 09/10/20 04:00 81 Medical Necessity - Tobacco Use Smoking Status: Never smoker Tobacco Use: Non-smoker Assessment/Plan All Active Problems Nausea and vomiting (Acute) Patient is an 80-year-old lady with history of recurrent metastatic breast CA currently undergoing chemo admitted with intractable nausea vomiting 1. Intractable nausea vomiting ?Suspected to be secondary to gastritis admitted to regular nursing floor for symptomatic management in addition to PPI 2. Acute transaminitis To be secondary to frequent use of acetaminophen. Admitted to regular nursing floor with serial hepatic function tests ordered. No significant improvement in her transaminitis 3. Chronic left-sided pleural effusion ?Malignant pleural effusion plan is for patient to undergo thoracocentesis if patient becomes symptomatic 4. VTE involving the left upper extremity ?Patient is on Lovenox 5. Hypertension - Blood pressure controlled, home medications continued with dose adjustment as needed 6. Hypokalemia ?Corrected per protocol 7. Metastatic breast CA ?Currently being managed as outpatient 8. Hypokalemia ?Corrected per protocol Advance planning; did discuss with the patient regarding advanced directives as well as CODE STATUS. Did explain the various scenarios involved ( FULL CODE, DNR CCA, DNR CCA with no intubation, and DNR CC and what each meant) patient elected full code with CPR and intubation if needed. Order was placed. Time spent on discussion 18 minutes. OBSV E&M: 94636 Subsequent observation care L3 Procedures: 41604 Advncd Care Plan 30 Min
[2020-09-10] MEDS: Enoxaparin 80 MG/0.8 ML Syringe SC ×2 (10:07→20:32)
[2020-09-10] MEDS: Losartan Potassium 50 MG Tablet PO (10:08)
[2020-09-10] MEDS: Pantoprazole Sodium 20 MG Tablet PO (10:08)
[2020-09-10] MEDS: Anastrozole 1 MG TABLET PO (10:08)
[2020-09-10] MEDS: amLODIPine 5 MG Tablet PO (10:09)
[2020-09-10] MEDS: NYSTATIN 500,000 UNIT/5 ML UDC 500000 UNIT PO ×3 (13:26→20:31)
--- NOTE | 2020-09-10 14:41 | CASEMGMT ---
CANDICE BIRD in to complete SHARMA form with patient. RN PELON explained SHARMA form to patient, patient voiced understanding. Patient signed SHARMA form and placed in chart. CANDICE BIRD provided patient copy of signed SHARMA form. Patient had no further symptoms or concerns at this time.
--- NOTE | 2020-09-10 19:00 | NURSING ---
level of care change per policy for fentanyl admin.
[2020-09-11] VITALS (9 sets, daily range): BP systolic 115–163; BP diastolic 55–71; PULSE 70–100; RESP 16–24; TEMP 36.6–37.1; O2SAT 92–98
--- NOTE | 2020-09-11 | FLU_PTH ---
PATIENT: RTISTAN DAVIS LOC: MS3 U#:[id number] AGE/SX: 80/F [place] [facility] [place]: Dr. Yovany Bedolla MD : 1940 BED: 1 DIS: 09/12/2020 SPEC #: [id number] RECD: 09/11/20 15:14 STATUS: ESTEVAN REKaterin #: [id number] THONY: 09/11/20 00:[address]: Yovany Bedolla DEPT: CYTOLOGY RECD BY: Sushil Oropeza ENTERED: 09/12/20 08:46 SP TYPE: Fluid OTHR DR: DO Dr. Yung Bejarano, DO Dr. Amador Oropeza MD Tissues: THORACIC FLUID Procedures: Special Stain Group II Surgery Specimen Level IV Cytospin Fluid HEADER OPERATION: Thoracentesis, left PRE-OP DIAGNOSIS: Pleural effusions TISSUE SUBMITTED: Thoracentesis fluid for cytology DIAGNOSIS CYTOLOGY Thoracentesis fluid for cytology (cytospin and cell block): Positive for malignant cells consistent with non-small cell carcinoma. See comment. AM:valerie 09/13/2020 COMMENT Immunohistochemistry ([id number]) supports the above diagnosis and favors a breast primary. Clinical correlation is suggested. Case has been reviewed in consultation with Dr. Amato who concurs with the above diagnosis. IDC:SJ CYTOLOGY STUDY Slides are reviewed. CYTOLOGY GROSS Received is 90 ml of yellow, cloudy fluid labeled with the patient's name and and designated per the requisition as thoracentesis. Submitted for cytology preparation including cell block. / valerie 09/12/2020 TC:0 CPT: 56281, 56182
--- NOTE | 2020-09-11 | IMM_PTH ---
PATIENT: TRISTAN DAVIS LOC: MS3 U#:[id number] AGE/SX: 80/F ROOM: [facility] [place] RE09/09/[address]: Dr. Yovany Bedolla MD : 1940 BED: 1 DIS: 09/12/2020 SPEC #: [id number] RECD: 09/13/20 12:42 STATUS: SOUErlinda REQ #: [id number] THONY: 09/11/20 00:[address]: Yovany Bedolla DEPT: IMMUNOHISTOCHEMISTRY RECD BY: Portia Gutiérrez ENTERED: 09/13/20 12:44 SP TYPE: IMMUNO OTHR DR: Dr. Navin Fregoso, DO Dr. Yung Amador, DO Dr. Amador Oropeza MD Tissues: THORACIC FLUID Procedures: NAPSIN A (add) CK14 (add) CK20 (add) CK5-6 (add) CK7 (add) CK8 (add) CARDONA-2 (add) MAMM (add) P53 (add) NE (add) TTF1 (add) Pankeratin (add) GATA3 (add) P40 (add) ER (initial) S-100 (add) PHYSICIAN & INSTITUTION [place] [id number] SPECIMEN INFORMATION: Tissue Source: Thoracentesis fluid Clinical Info: Pleural effusions Specimen Number: [id number] CPT code: 86963, 33670 x15 METHODOLOGY: Deparaffinized sections of prefer/formalin-fixed tissue or PAP/DQ stained slides are incubated with monoclonal/polyclonal antibodies/oligonucleotide probes. Localization is made via biotin free immunoperoxidase method. Appropriate controls are performed and reacted as expected. Results on target cell population are indicated in the following table: RESULTS: ANTIBODY / CLONE RESULT ER (6F11) negative NE (1E2) negative Mammaglobin (31A5) negative, occasional GATA3 (L50-823) positive AE1-3 (AE1/AE3/PCK26) positive CK7 (OV-TL12/30) positive CK8 (17qutxQ11) positive CK20 (KS20.8) negative CARDONA-2 (SP21) positive S-100 (4C4.9) negative TTF-1 (8G7G3/1) negative Napsin A (Rabbit Polyclonal) negative CK5-6 (D5 & 1684) negative CK14 (LL002) negative P40 (BC28) positive P53 (DO-7) positive, >95% These tests were developed and their performance characteristics determined by [facility]. They may not have been cleared or approved by the U.S. Food and Drug Administration. The FDA has determined that such clearance or approval is not necessary. The above immunohistochemical/dualISH markers are ordered and reviewed by the Pathologist. INTERPRETATION: Thoracentesis fluid: Metastatic non-small cell carcinoma. See comment. AM:valerie 09/14/2020 Comment: The IHC profile favors a breast primary. Clinical correlation is necessary. Case has been reviewed in consultation with Dr. Amato who concurs with the above diagnosis. IDC:SJ
[2020-09-11] MEDS: 0.9% Normal Saline 1,000 ML 125 ML IV (03:46)
[2020-09-11 05:55] LABS: Absolute Neutrophil Count 1.3 X10^3/uL (2.0-7.7); Basophil# 0.05 X10^3/uL; Eosinophil# 0.04 X10^3/uL; Eosinophils% 1.6 % (0-5); Hematocrit 32.8 % (37-47); Hemoglobin 10.4 g/dL (12.0-15.0); Mean Corp Hgb Conc 31.7 g/dL (32-36); Mean Corpuscular Hgb 30.2 pg (27.0-32.0); Mean Corpuscular Volume 95.3 fL (81-99); Mean Platelet Vol. 8.7 fl (6.2-12.0); Monocyte# 0.08 X10^3/uL; Monocyte% 3.3 % (0-10); NRBC Flagged by Analyzer 0 % (0-5); Neutrophil # 1.25 X10^3/uL (2.7-7.7); Neutrophil % 51.3 % (47-70); Platelet Count 166 K/mm3 (150-450); RBC Distribution Width CV 16.3 % (11.6-14.6); RBC Distribution Width SD 56.8 fl (35.1-43.9); Red Blood Count 3.44 M/mm3 (4.2-5.4); White Blood Count 2.4 K/mm3 (4.4-11.0)
[2020-09-11] MEDS: Gabapentin 300 MG Capsule PO ×3 (06:26→17:52)
[2020-09-11 06:31] LABS: ALB/GLOB Ratio 0.6 RATIO (0.9-2.4); AST(SGOT) 122 U/L (15-37); Alanine Aminotransfer ALT/SGPT 116 U/L (13-56); Alkaline Phosphatase 151 U/L (45-117); Anion Gap 6 (5-15); BUN 15 mg/dL (7-18); BUN/Creat Ratio 36.4 RATIO (10-20); Calcium,Total 7.2 mg/dL (8.5-10.1); Chloride 112 mmol/L (98-107); Creatinine, Serum 0.41 mg/dL (0.55-1.02); EST Glomerular Filtration Rate 158 mL/min (>60); Est Glom Filt Rate - Afr Amer 191 mL/min (>60); Estimated Creatinine Clearance 38.75 ml/min; Globulin 3.1 g/dL (2.2-4.2); Glucose 102 mg/dL (74-106); Potassium 3.5 mmol/L (3.5-5.1); Protein, Total 5.1 g/dL (6.4-8.2); Sodium Level 142 mmol/L (136-145)
--- NOTE | 2020-09-11 07:36 | DCINST_ITS ---
- Discharge Diagnoses Current Active Problems: Current Active and Chronic Problems Nausea and vomiting (Acute) You will use the following diet at home:: No restrictions Discharge Activity: May not drive while taking narcotic pain medications. Allergies/Adverse Reactions: Allergies cephalexin [From Keflex] Allergy (Verified 09/09/20 10:39) Rash oxycodone Adverse Reaction (Verified 09/08/20 07:43) Vomiting Medications to take at Discharge traMADol [Ultram] 50 mg PO Q4H PRN PRN 3 Days #20 tab 09/08/20 Acetaminophen [Tylenol] 500 mg PO Q4H PRN PRN 09/09/20 Amlodipine [Norvasc] 5 mg PO DAILY 09/09/20 Anastrozole [Arimidex] 1 mg PO DAILY 09/09/20 Enoxaparin [Lovenox] 80 mg SC Q12@0600,1800 09/09/20 Gabapentin [Neurontin] 300 mg PO TID 09/09/20 Hydrochlorothiazide [Hctz] 25 mg PO DAILY 09/09/20 Losartan Potassium 50 mg PO DAILY 09/09/20 Magnesium Oxide 500 mg PO DAILY 09/09/20 Omeprazole [Prilosec] 20 mg PO DAILY 09/09/20 Ondansetron [Zofran] 8 mg PO Q8H PRN PRN 09/09/20 Tramadol HCl 50 mg PO Q6H PRN 09/09/20 Vit C/E/Zn/Coppr/Lutein/Zeaxan [Preservision Areds 2 Softgel] 2 tab PO DAILY 09/09/20 proMETHazine tablet [Phenergan tablet] 25 mg PO Q6H PRN PRN 09/09/20 Ciprofloxacin [Cipro] 500 mg PO BID #6 tab 09/11/20 Nystatin 500,000 unit PO 4X/DAY #40 udc 09/11/20 Potassium Chloride [K-Dur] 20 meq PO BIDCM #30 tab 09/11/20 The following prescriptions were given: Ciprofloxacin [Cipro] 500 mg PO BID #6 tab Transmission Status: Pending to [id number] Potassium Chloride [K-Dur] 20 meq PO BIDCM #30 tab Transmission Status: Pending to [id number] Nystatin 500,000 unit PO 4X/DAY #40 udc Transmission Status: P[id number] Primary Care Physician: Amador Oropeza MD [Primary Care Provider] - Please follow up with your Primary Care Physician in: in 1-2 weeks Test Results: Test results from this visit will be discussed in further detail at your follow- up appointment, if applicable. Proposed Discharge Date: 09/11/20
--- NOTE | 2020-09-11 07:37 | DS.PCM_ITS ---
Discharge Date and Diagnosis - Problem List Patient Problems: Active and Suspected Problems Nausea and vomiting (Acute) Date of Admission: 09/09/20 Date of Discharge: 09/11/20 - Primary Discharge Diagnosis Acute Problems: Active Problems Nausea and vomiting (Acute) Hospital Course and Treatment Summary of Care Provided: Patient is an 80-year-old lady with history of recurrent metastatic breast CA currently undergoing chemo admitted with intractable nausea vomiting 1. Intractable nausea vomiting ?Suspected to be secondary to gastritis admitted to regular nursing floor for symptomatic management in addition to PPI 2. Acute transaminitis To be secondary to frequent use of acetaminophen. Admitted to regular nursing floor with serial hepatic function tests ordered. No significant improvement in her transaminitis 3. Acute cystitis ?Patient was prescribed ciprofloxacin 500 mg p.o. twice daily for 3 days on discharge 4. Chronic left-sided pleural effusion ?Malignant pleural effusion plan is for patient to undergo thoracocentesis if patient becomes symptomatic 5. Hypertension - Blood pressure controlled, home medications continued with dose adjustment as needed 6. Hypokalemia ?Corrected per protocol 7. Metastatic breast CA ?Currently being managed as outpatient 8. Hypokalemia ?Corrected per protocol 9. VTE involving the left upper extremity ?Patient is on Lovenox Patient Problems: Active and Suspected Problems Nausea and vomiting (Acute) Objective: GENERAL: cooperative HEENT: Atraumatic; EYES; Anicteric, Normal Conjunctiva NECK; supple, normal thyroid, RESPIRATORY: Diminished to auscultation CARDIOVASCULAR: Regular S1 S2, GI: soft, normoactive bowel sounds, : No Renal angle tenderness; EXTREMITIES: No edema, no clubbing, MUSCULOSKELETAL: no muscle waisting NEURO: Awake; no lateralizing signs. SKIN: No Rash PSYCH; Flat affect - Physical Exam Vitals/I&O's: Vital Signs Temp Pulse Resp BP Pulse Ox 98.1 F 82 16 131/60 H 92 09/11/20 03:44 09/11/20 05:41 09/11/20 03:44 09/11/20 03:44 09/11/20 03:44 Oxygen Delivery Method Room Air Weight: 88.36 kg Body Mass Index (BMI) 33.4 Intake and Output for Last 24 Hours 09/09/20 09/10/20 09/11/20 23:59 23:59 23:59 Intake Total 2350.00 / 2350.00 3141.66 / 3141.66 947.92 / 947.92 Output Total 100 / 100 500 / 500 Balance 2250.00 / 2250.00 3141.66 / 3141.66 447.92 / 447.92 Laboratory Results 09/11/20 05:44: WBC 2.4 L, RBC 3.44 L, Hgb 10.4 L, Hct 32.8 L, MCV 95.3, MCH 30.2, MCHC 31.7 L, RDW Std Deviation 56.8 H, RDW Coeff of Katelyn 16.3 H, Plt Count 166, MPV 8.7, Immature Gran % (Auto) 0.800, Neut % (Auto) 51.3, Lymph % (Auto) 41.0, [place] % (Auto) 3.3, Eos % (Auto) 1.6, Baso % (Auto) 2.0 H, Absolute Neuts (auto) 1.3 L, Absolute Lymphs (auto) 1.00, Nucleated RBC % 0 09/11/20 05:44: Sodium 142, Potassium 3.5, Chloride 112 H, Carbon Dioxide 24.0, Anion Gap 6, BUN 15, Creatinine 0.41 L, Estim Creat Clear Calc 38.75, Est GFR (MDRD) Af Amer 191, Est GFR (MDRD) Non-Af 158, BUN/Creatinine Ratio 36.4 H, Glucose 102, Calcium 7.2 L, Total Bilirubin 0.50, AST 122 H, ALT 116 H, Alkaline Phosphatase 151 H, Total Protein 5.1 L, Albumin 2.0 L, Globulin 3.1, Albumin/Globulin Ratio 0.6 L Current Medications Amlodipine Besylate (Amlodipine 5 Mg Tablet) 5 mg PO DAILY [facility] Last Admin: 09/10/20 10:09 Dose: 5 mg Documented by: Anastrozole (Anastrozole 1 Mg Tablet) 1 mg PO DAILY [facility] Last Admin: 09/10/20 10:08 Dose: 1 mg Documented by: Enoxaparin Sodium (Enoxaparin 80 Mg/0.8 Ml Syringe) 80 mg SC Q12 [facility] Last Admin: 09/10/20 20:32 Dose: 80 mg Documented by: Fentanyl Citrate (Fentanyl 100 Mcg/2 Ml Ampul) 25 mcg IV Q4H PRN PRN PRN Reason: Pain Score 1-10 Last Admin: 09/10/20 18:37 Dose: 25 mcg Documented by: Gabapentin (Gabapentin 300 Mg Capsule) 300 mg PO TID [facility] Last Admin: 09/11/20 06:26 Dose: 300 mg Documented by: Sodium Chloride () 1,000 mls @ 125 mls/hr IV .Q8H [facility] Last Admin: 09/11/20 03:46 Dose: 125 mls/hr Documented by: Losartan Potassium (Losartan Potassium 50 Mg Tablet) 50 mg PO DAILY [facility] Last Admin: 09/10/20 10:08 Dose: 50 mg Documented by: Nystatin (Nystatin 500,000 Unit/5 Ml Udc) 500,000 unit PO 4X/DAY [facility] Last Admin: 09/10/20 20:31 Dose: 500,000 unit Documented by: Ondansetron HCl (Ondansetron 4 Mg/2 Ml Vial) 4 mg IV Q6H PRN PRN PRN Reason: NAUSEA/VOMITING Last Admin: 09/09/20 10:45 Dose: 4 mg Documented by: Pantoprazole Sodium (Pantoprazole Sodium 20 Mg Tablet) 20 mg PO DAILY [facility] Last Admin: 09/10/20 10:08 Dose: 20 mg Documented by: Potassium Chloride (Potassium Chloride 20 Meq Tablet) 20 meq PO BIDCM [facility] Last Admin: 09/10/20 16:20 Dose: 20 meq Documented by: Sodium Chloride (0.9% Saline Lock 10 Ml Syringe) 10 - 40 ml IV UD PRN PRN Reason: SALINE FLUSH Last Admin: 09/10/20 18:37 Dose: 10 ml Documented by: Temazepam (Temazepam 15 Mg Capsule) 15 mg PO QHS PRN PRN PRN Reason: INSOMNIA Discharge Diet: No Restrictions Discharge Activity: May not drive while taking narcotic pain medications. Home Medications: Medications to take at Discharge traMADol [Ultram] 50 mg PO Q4H PRN PRN 3 Days #20 tab 09/08/20 Acetaminophen [Tylenol] 500 mg PO Q4H PRN PRN 09/09/20 Amlodipine [Norvasc] 5 mg PO DAILY 09/09/20 Anastrozole [Arimidex] 1 mg PO DAILY 09/09/20 Enoxaparin [Lovenox] 80 mg SC Q12@0600,1800 09/09/20 Gabapentin [Neurontin] 300 mg PO TID 09/09/20 Hydrochlorothiazide [Hctz] 25 mg PO DAILY 09/09/20 Losartan Potassium 50 mg PO DAILY 09/09/20 Magnesium Oxide 500 mg PO DAILY 09/09/20 Omeprazole [Prilosec] 20 mg PO DAILY 09/09/20 Ondansetron [Zofran] 8 mg PO Q8H PRN PRN 09/09/20 Tramadol HCl 50 mg PO Q6H PRN 09/09/20 Vit C/E/Zn/Coppr/Lutein/Zeaxan [Preservision Areds 2 Softgel] 2 tab PO DAILY 09/09/20 proMETHazine tablet [Phenergan tablet] 25 mg PO Q6H PRN PRN 09/09/20 Ciprofloxacin [Cipro] 500 mg PO BID #6 tab 09/11/20 Nystatin 500,000 unit PO 4X/DAY #40 udc 09/11/20 Potassium Chloride [K-Dur] 20 meq PO BIDCM #30 tab 09/11/20 Following Prescriptions Were Given to Patient: Ciprofloxacin [Cipro] 500 mg PO BID #6 tab Transmission Status: [id number] Potassium Chloride [K-Dur] 20 meq PO BIDCM #30 tab Transmission Status: [id number] Nystatin 500,000 unit PO 4X/DAY #40 udc Transmission Status: [id number] Primary Care Physician: Amador Oropeza MD [Primary Care Provider] - Please follow up with your Primary Care Physician in: in 1-2 weeks Disposition: Home Minutes spent on discharge:: 35 Patient Condition:: Stable Medical Necessity - Tobacco Use Smoking Status: Never smoker Tobacco Use: Non-smoker Meaningful Use Info Meaningful Use Diagnoses (Choose all that apply): None applicable OBSV E&M: 88212 Observation care discharge
--- NOTE | 2020-09-11 08:43 | PCS.PANDOC ---
PANDEMIC DOCUMENTATION INITIATED: Date: 08/06/2020 Time:
[2020-09-11 08:53] LABS: D-Dimer Quantitative (DVT/PE) 1.84 FEU/ug/m (0.27-0.49)
--- NOTE | 2020-09-11 09:02 | CT_ITS ---
STUDY: CTA CHEST REASON FOR EXAM: Female, 80 years old. SOB WITH ELEVATED D-DIMER. HISTORY OF REOCCURRING BREAST CA WITH METS. CHEMO.MASTECTOMY RADIATION DOSAGE (If Supplied By Facility): CTDIvol = ( 12.45 ) mGy, DLP = ( 487.85 ) mGycm TECHNIQUE: The examination was performed with the intravenous administration of 100 ML ISOVUE 300. Post-processing of the angiographic images was performed, with multiplanar reformation and 3D reconstruction. Individualized dose optimization techniques were used for this CT. COMPARISON: Comparison is made with prior chest radiograph dated 09/09/2020. FINDINGS: Normal enhancement of the main pulmonary artery and right and left pulmonary arteries. Normal enhancement of the bilateral peripheral pulmonary arteries. There is no demonstrated pulmonary embolism. There is atherosclerotic calcification of the aortic arch with tortuosity. There is no demonstrated aortic dissection. There are calcifications of the coronary arteries. There are visualized mediastinal lymph nodes, which are within normal size limits, and with normal morphology. There are calcified left hilar lymph nodes. Normal visualized trachea and bronchi. Bilateral pleural effusions left greater than right with bibasilar atelectasis. Loss of volume in the left lower lobe with compressive atelectasis. Normal chest wall structures. There are degenerative changes of thoracic spine. Normal visualized upper abdomen. CT/CTA Chest W/WO Contrast IMPRESSION: Bilateral pleural effusions left greater than right with volume loss in the left hemithorax. No evidence of a pulmonary embolism. Electronically Signed: Tip Zhao, at 10:22 EST , Service support ,
[2020-09-11] MEDS: Enoxaparin 80 MG/0.8 ML Syringe SC ×2 (09:03→20:42)
[2020-09-11] MEDS: Pantoprazole Sodium 20 MG Tablet PO (09:04)
[2020-09-11] MEDS: Losartan Potassium 50 MG Tablet PO (09:04)
[2020-09-11] MEDS: amLODIPine 5 MG Tablet PO (09:04)
[2020-09-11] MEDS: Anastrozole 1 MG TABLET PO (09:05)
[2020-09-11] MEDS: 0.9% Saline Lock 10 ML Syringe IV ×2 (09:15→12:05)
--- NOTE | 2020-09-11 09:58 | EKG12_ITS ---
Test Reason : AFIB Blood Pressure : / mmHG Vent. Rate : 091 BPM Atrial Rate : 046 BPM P-R Int : 000 ms QRS Dur : 066 ms QT Int : 334 ms P-R-T Axes : 000 020 054 degrees QTc Int : 410 ms Atrial fibrillation Low voltage QRS Abnormal ECG No previous ECGs available Confirmed by KARLIE SANTANA, JUNAID ([id number]), newspaper photo editor LUZ CIFUENTES ([id number]) on 09/19/2020 7:22:23 AM Referred By: ESTEBAN Confirmed By:JUNAID ZIEGLER MD
[2020-09-11] MEDS: Furosemide 100 MG/10 ML Vial 80 MG IV (10:00)
[2020-09-11] MEDS: LORazepam 0.5 MG Tablet PO (10:00)
--- NOTE | 2020-09-11 10:28 | PN_ITS ---
Patient Problems: Active and Suspected Problems Nausea and vomiting (Acute) Subjective: Patient is an 80-year-old lady with history of recurrent metastatic breast CA currently undergoing chemo admitted with intractable nausea vomiting Patient seen complains of significant left upper chest discomfort. D-dimer came back elevated. CTA of the chest ordered for subsequent evaluation (of note patient is known to have DVT involving the left upper extremity for which patient is on Lovenox) Objective: GENERAL: cooperative HEENT: Atraumatic; EYES; Anicteric, Normal Conjunctiva NECK; supple, normal thyroid, RESPIRATORY: Diminished to auscultation CARDIOVASCULAR: Regular S1 S2, GI: soft, normoactive bowel sounds, : No Renal angle tenderness; EXTREMITIES: No edema, no clubbing, MUSCULOSKELETAL: no muscle waisting NEURO: Awake; no lateralizing signs. SKIN: No Rash PSYCH; Flat affect Vitals/I&O's: Vital Signs Temp Pulse Resp BP Pulse Ox 98.0 F 70 24 H 163/71 H 96 09/11/20 09:01 09/11/20 09:01 09/11/20 09:01 09/11/20 09:01 09/11/20 09:01 Oxygen Delivery Method Room Air Weight: 93 kg Body Mass Index (BMI) 33.4 Intake and Output for Last 24 Hours 09/09/20 09/10/20 09/11/20 23:59 23:59 23:59 Intake Total 2350.00 / 2350.00 3141.66 / 3141.66 1626.25 / 1626.25 Output Total 100 / 100 500 / 500 Balance 2250.00 / 2250.00 3141.66 / 3141.66 1126.25 / 1126.25 Laboratory Results 09/11/20 05:44: WBC 2.4 L, RBC 3.44 L, Hgb 10.4 L, Hct 32.8 L, MCV 95.3, MCH 30.2, MCHC 31.7 L, RDW Std Deviation 56.8 H, RDW Coeff of Katelyn 16.3 H, Plt Count 166, MPV 8.7, Immature Gran % (Auto) 0.800, Neut % (Auto) 51.3, Lymph % (Auto) 41.0, [place] % (Auto) 3.3, Eos % (Auto) 1.6, Baso % (Auto) 2.0 H, Absolute Neuts (auto) 1.3 L, Absolute Lymphs (auto) 1.00, Nucleated RBC % 0 09/11/20 05:44: Sodium 142, Potassium 3.5, Chloride 112 H, Carbon Dioxide 24.0, Anion Gap 6, BUN 15, Creatinine 0.41 L, Estim Creat Clear Calc 38.75, Est GFR (MDRD) Af Amer 191, Est GFR (MDRD) Non-Af 158, BUN/Creatinine Ratio 36.4 H, Glucose 102, Calcium 7.2 L, Total Bilirubin 0.50, AST 122 H, ALT 116 H, Alkaline Phosphatase 151 H, Total Protein 5.1 L, Albumin 2.0 L, Globulin 3.1, Albumin/Globulin Ratio 0.6 L 09/11/20 08:16: D-Dimer Quant (PE/DVT) 1.84 H* Current Medications Amlodipine Besylate (Amlodipine 5 Mg Tablet) 5 mg PO DAILY [facility] Last Admin: 09/11/20 09:04 Dose: 5 mg Documented by: Anastrozole (Anastrozole 1 Mg Tablet) 1 mg PO DAILY [facility] Last Admin: 09/11/20 09:05 Dose: 1 mg Documented by: Enoxaparin Sodium (Enoxaparin 80 Mg/0.8 Ml Syringe) 80 mg SC Q12 [facility] Last Admin: 09/11/20 09:03 Dose: 80 mg Documented by: Fentanyl Citrate (Fentanyl 100 Mcg/2 Ml Ampul) 25 mcg IV Q4H PRN PRN PRN Reason: Pain Score 1-10 Last Admin: 09/10/20 18:37 Dose: 25 mcg Documented by: Gabapentin (Gabapentin 300 Mg Capsule) 300 mg PO TID [facility] Last Admin: 09/11/20 06:26 Dose: 300 mg Documented by: Lorazepam (Lorazepam 0.5 Mg Tablet) 0.5 mg PO Q6H PRN PRN PRN Reason: ANXIETY Last Admin: 09/11/20 10:00 Dose: 0.5 mg Documented by: Losartan Potassium (Losartan Potassium 50 Mg Tablet) 50 mg PO DAILY [facility] Last Admin: 09/11/20 09:04 Dose: 50 mg Documented by: Nystatin (Nystatin 500,000 Unit/5 Ml Udc) 500,000 unit PO 4X/DAY [facility] Last Admin: 09/11/20 09:13 Dose: Not Given Documented by: Ondansetron HCl (Ondansetron 4 Mg/2 Ml Vial) 4 mg IV Q6H PRN PRN PRN Reason: NAUSEA/VOMITING Last Admin: 09/09/20 10:45 Dose: 4 mg Documented by: Pantoprazole Sodium (Pantoprazole Sodium 20 Mg Tablet) 20 mg PO DAILY [facility] Last Admin: 09/11/20 09:04 Dose: 20 mg Documented by: Potassium Chloride (Potassium Chloride 20 Meq Tablet) 20 meq PO BIDCM [facility] Last Admin: 09/11/20 09:03 Dose: 20 meq Documented by: Sodium Chloride (0.9% Saline Lock 10 Ml Syringe) 10 - 40 ml IV UD PRN PRN Reason: SALINE FLUSH Last Admin: 09/11/20 09:15 Dose: 20 ml Documented by: Temazepam (Temazepam 15 Mg Capsule) 15 mg PO QHS PRN PRN PRN Reason: INSOMNIA STROKE Vital Signs/Narrative: Vital Signs Temp Pulse Resp BP Pulse Ox 09/11/20 09:01 98.0 F 70 24 H 163/71 H 96 09/11/20 08:46 100 20 H 93 Medical Necessity - Tobacco Use Smoking Status: Never smoker Tobacco Use: Non-smoker Assessment/Plan All Active Problems Nausea and vomiting (Acute) Patient is an 80-year-old lady with history of recurrent metastatic breast CA currently undergoing chemo admitted with intractable nausea vomiting 1. Acute dyspnea Order D-dimer as part of patient's evaluation which came back elevated. CTA of the chest ordered for subsequent evaluation (of note patient is known to have DVT involving the left upper extremity for which patient is on Lovenox) 2. Intractable nausea vomiting ?Suspected to be secondary to gastritis admitted to regular nursing floor for symptomatic management in addition to PPI 3. Acute transaminitis To be secondary to frequent use of acetaminophen. Admitted to regular nursing floor with serial hepatic function tests ordered. No significant improvement in her transaminitis -09/11/2020 patient has continues to improve. 4. Chronic left-sided pleural effusion ?Malignant pleural effusion plan is for patient to undergo thoracocentesis if patient becomes symptomatic -09/11/2020 plan is for patient to undergo ultrasound guided thoracocentesis if has significant pleural effusion on CTA ordered above 5. VTE involving the left upper extremity ?Patient is on Lovenox 6. Hypertension - Blood pressure controlled, home medications continued with dose adjustment as needed 7. Hypokalemia ?Corrected per protocol 8. Metastatic breast CA ?Currently being managed as outpatient 9. Hypokalemia ?Corrected per protocol OBSV E&M: 87733 Subsequent observation care L3
--- NOTE | 2020-09-11 10:43 | US_ITS ---
PROCEDURE: ULTRASOUND GUIDED THORACENTESIS. DATE: 09/11/2020. INDICATION: Female, 80 years old. Left pleural effusion. PHYSICIAN: Tip Zhao M.D. PROCEDURE: The risks, benefits, and alternatives to the procedure were explained to the patient. The specific risks of bleeding, infection, and pneumothorax requiring chest tube insertion were discussed and accepted. Written informed consent was obtained. Ultrasonographic evaluation of the left lower pleural space was carried out. An adequate pocket was identified. The patient was placed in the sitting, upright position. The overlying skin was prepped and draped in sterile fashion. 1% lidocaine was administered subcutaneously for local anesthesia. Under ultrasound guidance, a 5 Lao thoracentesis needle/catheter system was advanced into the left posterior lower pleural fluid collection. Approximately 800 mL of lauren-colored fluid was drained. The catheter was removed, and a sterile dressing was applied. A specimen was collected and sent to the laboratory for analysis, as requested by the referring clinician. The patient tolerated the procedure well. A chest x-ray was ordered. US/Thoracentesis W US IMPRESSION: Ultrasound-guided left thoracentesis. Electronically Signed: Tip Zhao, at 15:12 EST , Service support ,
[2020-09-11 11:41] LABS: LDH 196 U/L (84-246)
[2020-09-11] MEDS: Furosemide 40 MG/4 ML Vial IV (12:05)
[2020-09-11 12:55] LABS: Bacteria 0 SEEN /hpf (None Seen); Mucous, Urine 0 SEEN /hpf (<or=2+); Red Blood Cells-Urine 0 SEEN /hpf (0-5); Squamous Epithelial Cells - UA 0 SEEN /hpf (5-10); White Blood Cells 0 SEEN /hpf (0-5)
[2020-09-11 13:07] LABS: Color, Urine Straw (Yellow); Glucose, Dipstick Normal (Normal); Ketone-Dipstick Negative (Negative); Leukocyte Esterase-Dipstick 25 /ul (Negative); Nitrite-Dipstick Negative (Negative); Occult Blood-Urine Negative /ul (Negative); Protein-Dipstick Negative (Negative); Urine Bilirubin Dipstick Negative (Negative); Urine Clarity Sl. Cloudy (Clear); Urine Urobilinogen Normal (Normal); Urine pH 6.5 (5.0 - 8.0)
--- NOTE | 2020-09-11 13:09 | PCM.CONS.B ---
Problem List (1) Dyspnea and respiratory abnormalities Status: Acute (2) Metastatic malignant neoplasm to breast Status: Chronic - Consult Date of Consult: 09/11/[address] 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 She now complains of severe dyspnea and increased swelling of the left arm. My final recommendation will be communicated to Dr. Bedolla and also by electronic medical record. - Reason for Consult The patient is a 80 year old F who was seen in the emergency room at [facility] today with complaints of nausea and vomiting. She started palliative chemotherapy with carboplatin gemcitabine last month for recurrence of breast cancer which first occurred in 2018. Her previous CT scan of the chest showed a malignant left pleural effusion on the but no discernible liver metastases were noted. Patient did have lymphadenopathy on the chest CT along with lymphedema. she recently diagnosed VTE in her left arm probably from compression of the veins from recurrent breast cancer, and she is on Lovenox 80 mg subcu every 12 hours. Work-up in the emergency room today included a CBC which was unremarkable, elevated AST, ALT, and alkaline phosphatase possible secondary to acetaminophen which is improving. Chest x-ray obtained today shows a sizable left pleural effusion, no discernible infiltrates were noted by this examiner on inspection of the chest x-ray images. Since her admission, she received IV fluid and her nausea vomiting has resolved. She complained of severe shortness of breath this morning with increased swelling of her left arm. CTA of the chest showed a large left pleural effusion along with a small right pleural effusion. Her IV fluid was stopped and she was given furosemide for diuresis. She has shortness of breath lying down. She denies chest pain, cough or hemoptysis. 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 Lives: Spouse/ Significant Other Smoking Status: Never smoker Tobacco Use: Non-smoker Alcohol: None Drugs: None - *Family History Maternal History Items: Heart Disease Paternal History Items: - - Alcoholism Review of Systems Constitutional: Denies: Anorexia, Chills, Fever, Night Sweats, Malaise, Weakness, Weight Change, Fatigue Eyes: Denies: Cataracts, Conjunctivae Inflammation, Double vision, Drainage HEENT: Denies: Dysphasia, Ear Pain, Eye Pain, Hearing Changes, Nasal bleeding, Nasal Congestion, Post Nasal Drip Cardiovascular: Denies: Chest Pain, Claudication, Chest Pressure, Chest Tightness, Edema, Palpitations Respiratory: Reports: Shortness of Breath, Shortness of breath upon exertion. Denies: Cough, Hemoptysis, Pleuritic Pain, Shortness of breath at rest Gastrointestinal: Denies: Abdominal Pain, Constipation, Diarrhea, Hematemesis, Hematochezia, Nausea, Melena, Vomiting Genitourinary: Denies: Dysuria, Frequency, Hematuria, Hesitancy, Nocturia, Retention, Urgency Gynecological: Reports: Breast symptoms - Recent history of recurrent metastatic breast cancer Musculoskeletal: Denies: Foot Pain, Hand Pain, Joint Pain, Joint stiffness, Joint swelling, Joint Tenderness, Leg Pain Skin: Denies: Dryness, Jaundice, Pruritis, Rash Neurological: Denies: Blurred vision, Double vision, Change in Speech, Slurred speech, Difficulty swallowing, Focal weakness, Headaches, Incoordination, Numbness, Tingling Psychiatric: Denies: Anxiety, Depression, Homicidal Ideations, Suicidal Ideations Endocrine: Denies: Change in Body Habitus, Heat/ Cold Intolerance, Polydipsia, Polyuria Hematologic/ Lymphatic: Reports: Hx of blood clot - Recent history of VTE left arm secondary to compression of the venous return from recurrent left breast cancer. Denies: Adenopathy, Anemia, Easy Bruising, Easy Bleeding, Petechiae, Purpura VTE Information - Inpt Only VTE Present on Admission: Yes - Patient was recently diagnosed with VTE of the left arm, she is under treat VTE Mechan Device Prophylaxis: None VTE Pharm Prophylaxis ordered?: No - Physical Exam Vitals/I&O's: Vital Signs Temp Pulse Resp BP Pulse Ox 09/11/20 09:01 98.0 F 92 24 H 163/71 H 96 09/11/20 08:46 100 20 H 93 09/11/20 05:41 82 09/11/20 03:44 98.1 F 80 16 131/60 H 92 General: Alert, Oriented x3, Cooperative, Well developed, Well nourished, - - Patient appears nauseated HEENT: Atraumatic, PERRLA, EOMI, Normocephalic Oral: Moist Mucosa Neck: Supple, No JVD, Negative Carotid Bruits, Trachea Midline, Thyroid Normal Size and Texture Lungs: diminished breath sound left lung base with dullness to percussion, No rhonchi, No wheeze, No rales Cardiovascular: Regular rate, Regular Rhythm, Normal S1, Normal S2, No murmurs, No Ectopic Activity, PMI Normal, No rub noted, No Gallop Abdomen: Bowel Sounds Present, Soft, Non Tender, Non-Distended Extremities: No clubbing, No cyanosis, Capillary Refill Less than 3 Seconds + 1 edema involving the left arm Skin: No rashes, No breakdown Musculoskeletal: No Tenderness to Palpation of Joints or Extremities Neurological: Cranial nerves II-XII grossly intact, Neuro grossly intact, Sensory exam intact to light touch and pain Psych/Mental Status: Normal Affect, Appropriate, Alert and oriented to time, place, person, mood and affect Laboratory Results - last 24 hr 09/11/20 09/11/20 09/11/20 05:44 05:44 05:44 WBC 2.4 L RBC 3.44 L Hgb 10.4 L Hct 32.8 L MCV 95.3 MCH 30.2 MCHC 31.7 L RDW Std Deviation 56.8 H RDW Coeff of Katelyn 16.3 H Plt Count 166 MPV 8.7 Immature Gran % (Auto) 0.800 Neut % (Auto) 51.3 Lymph % (Auto) 41.0 Beckham % (Auto) 3.3 Eos % (Auto) 1.6 Baso % (Auto) 2.0 H Absolute Neuts (auto) 1.3 L Absolute Lymphs (auto) 1.00 Nucleated RBC % 0 D-Dimer Quant (PE/DVT) Sodium 142 Potassium 3.5 Chloride 112 H Carbon Dioxide 24.0 Anion Gap 6 BUN 15 Creatinine 0.41 L Estim Creat Clear Calc 38.75 Est GFR (MDRD) Af Amer 191 Est GFR (MDRD) Non-Af 158 BUN/Creatinine Ratio 36.4 H Glucose 102 Calcium 7.2 L Total Bilirubin 0.50 AST 122 H ALT 116 H Alkaline Phosphatase 151 H Lactate Dehydrogenase 196 Total Protein 5.1 L Albumin 2.0 L Globulin 3.1 Albumin/Globulin Ratio 0.6 L Urine Color Urine Clarity Urine pH Ur Specific Troy Urine Protein Urine Glucose (UA) Urine Ketones Urine Occult Blood Urine Nitrite Urine Bilirubin Urine Urobilinogen Ur Leukocyte Esterase Urine RBC Urine WBC Ur Squamous Epith Cells Urine Bacteria Urine Mucus 09/11/20 09/11/20 08:16 12:30 WBC RBC Hgb Hct MCV MCH MCHC RDW Std Deviation RDW Coeff of Katelyn Plt Count MPV Immature Gran % (Auto) Neut % (Auto) Lymph % (Auto) Beckham % (Auto) Eos % (Auto) Baso % (Auto) Absolute Neuts (auto) Absolute Lymphs (auto) Nucleated RBC % D-Dimer Quant (PE/DVT) 1.84 H* Sodium Potassium Chloride Carbon Dioxide Anion Gap BUN Creatinine Estim Creat Clear Calc Est GFR (MDRD) Af Amer Est GFR (MDRD) Non-Af BUN/Creatinine Ratio Glucose Calcium Total Bilirubin AST ALT Alkaline Phosphatase Lactate Dehydrogenase Total Protein Albumin Globulin Albumin/Globulin Ratio Urine Color Straw Urine Clarity Sl. Cloudy Urine pH 6.5 Ur Specific Troy 1.010 Urine Protein Negative Urine Glucose (UA) Normal Urine Ketones Negative Urine Occult Blood Negative Urine Nitrite Negative Urine Bilirubin Negative Urine Urobilinogen Normal Ur Leukocyte Esterase 25 H Urine RBC 0 SEEN Urine WBC 0 SEEN Ur Squamous Epith Cells 0 SEEN Urine Bacteria 0 SEEN Urine Mucus [address] SCAN: COMPARISON: Comparison is made with prior chest radiograph dated 09/09/2020. FINDINGS: Normal enhancement of the main pulmonary artery and right and left pulmonary arteries. Normal enhancement of the bilateral peripheral pulmonary arteries. There is no demonstrated pulmonary embolism. There is atherosclerotic calcification of the aortic arch with tortuosity. There is no demonstrated aortic dissection. There are calcifications of the coronary arteries. There are visualized mediastinal lymph nodes, which are within normal size limits, and with normal morphology. There are calcified left hilar lymph nodes. Normal visualized trachea and bronchi. Bilateral pleural effusions left greater than right with bibasilar atelectasis. Loss of volume in the left lower lobe with compressive atelectasis. Normal chest wall structures. There are degenerative changes of thoracic spine. Normal visualized upper abdomen. IMPRESSION: Bilateral pleural effusions left greater than right with volume loss in the left hemithorax. No evidence of a pulmonary embolism. Assessment/Plan 80-year-old female with metastatic triple negative breast cancer presented with nausea vomiting this weekend. She presented with abnormal LFT probably secondary to acetaminophen toxicity. -Increased dyspnea secondary to fluid retention and malignant left pleural effusion. -DVT of the left arm on LMWH Plan: -Agree with plan for therapeutic left thoracentesis because of symptom of dyspnea from malignant pleural effusion -Continue diuresis for left arm swelling & Lovenox injection every 12 hours for DVT of the left upper extremity. -Cancel chemotherapy treatment for tomorrow and follow-up with Dr. Amador next week to discuss future palliative treatment options for metastatic breast cancer -Monitor CBC and CMP and possible discharge home tomorrow if her dyspnea and edema improved tomorrow with diuresis. cc: Dr. Yovany Bedolla; Dr. Amador Oropeza; Yung Amador DO
[2020-09-11] MEDS: Lidocaine 2% (20 ml mdv) 20 ML Vial (14:30)
--- NOTE | 2020-09-11 14:46 | RAD_ITS ---
STUDY: X-RAY CHEST REASON FOR EXAM: Female, 80 years old. POST THORA TECHNIQUE: AP inspiration and expiration views. COMPARISON: Comparison is made with prior examination dated 09/09/2020. FINDINGS: The patient is status post left thoracentesis. There is no evidence of pneumothorax. Surgical clips are seen in the right axillary region. Blunting of the right costophrenic angle. RAD/Chest Insp/Exp 2 View IMPRESSION: Status post left thoracentesis. There is no evidence of pneumothorax. Electronically Signed: Tip Zhao, at 15:00 EST , Service support ,
--- NOTE | 2020-09-11 15:00 | CASEMGMT ---
SW reviewed chart for palliative care, palliative tool completed. It does not appear that pt is a palliative candidate at this time, though should pt have another hospitalization SW can reassess. NILA Chance
[2020-09-11 15:57] LABS: Body Fluid Mononuclear WBC # 0.517 10^3/uL; Body Fluid Mononuclear WBC % 93.5 %; Body Fluid Polynuclear WBC # 0.036 10^3/uL; Body Fluid Polynuclear WBC % 6.5 %; Body Fluid Total Cells Counted 0.663 10^3/ul; White Blood Count/Body Fluid 0.553 10^3/uL
[2020-09-11 17:12] LABS: Lymphocytes 46 %; Macrophages 4 %; Mesothelial Cells 40 %; Monocytes 4 %; Neutrophil (Segs) 6 %
[2020-09-11 17:14] LABS: Appearance/Body Fluid CLEAR; Auto B Fluid Analyzer BKGD Ct COUNTS W/IN LIMITS (W/IN LIMITS); Color/Body Fluid YELLOW; Red Cell Count/Body Fluid 418 /mm3; Source- Body Fluid THORACENTESIS
[2020-09-11 17:45] LABS: LDH,Body Fluid 73 Units/l (Not Establ.)
[2020-09-11 17:46] LABS: Glucose, Body Fluid 133 mg/dL (40-70); Protein, Body Fluid 3.1 g/dL (Not Establ.)
[2020-09-12 02:53] VITALS: BP 134/69; PULSE 84; RESP 16; TEMP 36.8; O2SAT 97
[2020-09-12 05:11] VITALS: PULSE 77
[2020-09-12] MEDS: Gabapentin 300 MG Capsule PO (06:27)
[2020-09-12 07:04] LABS: Absolute Lymphocyte Count 1.28 X10^3/uL (0.83-4.51); Absolute Neutrophil Count 0.7 X10^3/uL (2.0-7.7); Basophil# 0.03 X10^3/uL; Basophil% 1.3 % (0-1); Hematocrit 31.3 % (37-47); Hemoglobin 10.1 g/dL (12.0-15.0); Lymphocyte # 1.28 X10^3/ul (4.0); Lymphocyte % 56.1 % (19-41); Mean Corp Hgb Conc 32.3 g/dL (32-36); Mean Corpuscular Hgb 30.4 pg (27.0-32.0); Mean Corpuscular Volume 94.3 fL (81-99); Mean Platelet Vol. 9.2 fl (6.2-12.0); Monocyte# 0.22 X10^3/uL; Monocyte% 9.6 % (0-10); NRBC Flagged by Analyzer 0 % (0-5); Neutrophil # 0.73 X10^3/uL (2.7-7.7); Neutrophil % 32.1 % (47-70); POSITIVE DIFFERENTIAL YES; Platelet Count 139 K/mm3 (150-450); RBC Distribution Width SD 55.3 fl (35.1-43.9); Red Blood Count 3.32 M/mm3 (4.2-5.4); White Blood Count 2.3 K/mm3 (4.4-11.0)
--- NOTE | 2020-09-12 07:17 | PCM.PN.BLA ---
Progress Note Oncology progress note: She is feeling much better after thoracentesis yesterday. She denied dyspnea and able to sleep last night. The swelling in her left arm also improved with diuresis. Vital Signs Temp Pulse Resp BP Pulse Ox 09/12/20 05:11 77 09/12/20 02:53 98.2 F 84 16 134/69 H 97 09/11/20 20:46 82 09/11/20 20:31 98.8 F 79 18 141/62 H 97 IMPRESSION/PLAN: 1) metastatic triple negative breast cancer with malignant pleural effusion 2) swelling of the left arm secondary to recurrent breast cancer, chronic DVT and lymphedema -Discharged home this morning and follow-up with Dr. Amador next week -Continue Lovenox injection every 12 hours -Furosemide as needed for swelling -Cancel chemotherapy for today and follow-up with Dr. Amador next week. cc: Dr. Yung Amador STROKE Vital Signs/Narrative: Vital Signs Pulse 09/12/20 05:11 77
[2020-09-12 07:22] LABS: Differential Indicated SCAN CRITERIA MET
[2020-09-12 07:23] LABS: Differential Comment SCANNED
[2020-09-12 07:40] LABS: ALB/GLOB Ratio 0.7 RATIO (0.9-2.4); AST(SGOT) 81 U/L (15-37); Alanine Aminotransfer ALT/SGPT 81 U/L (13-56); Albumin, Serum 2.1 g/dL (3.2-5.0); Alkaline Phosphatase 126 U/L (45-117); Anion Gap 3 (5-15); BUN 16 mg/dL (7-18); BUN/Creat Ratio 40.6 RATIO (10-20); Calcium,Total 7.7 mg/dL (8.5-10.1); Chloride 110 mmol/L (98-107); Creatinine, Serum 0.39 mg/dL (0.55-1.02); EST Glomerular Filtration Rate 166 mL/min (>60); Est Glom Filt Rate - Afr Amer 201 mL/min (>60); Estimated Creatinine Clearance 38.75 ml/min; Glucose 88 mg/dL (74-106); Potassium 3.5 mmol/L (3.5-5.1); Protein, Total 5.1 g/dL (6.4-8.2); Sodium Level 144 mmol/L (136-145)
--- NOTE | 2020-09-12 07:41 | DCINST_ITS ---
- Discharge Diagnoses Current Active Problems: Current Active and Chronic Problems Nausea and vomiting (Acute) Dyspnea and respiratory abnormalities (Acute) Metastatic malignant neoplasm to breast (Chronic) You will use the following diet at home:: No restrictions Discharge Activity: Return to Normal Activity Instructions: Thoracentesis Allergies/Adverse Reactions: Allergies cephalexin [From Keflex] Allergy (Verified 09/09/20 10:39) Rash oxycodone Adverse Reaction (Verified 09/08/20 07:43) Vomiting Medications to take at Discharge traMADol [Ultram] 50 mg PO Q4H PRN PRN 3 Days #20 tab 09/08/20 Acetaminophen [Tylenol] 500 mg PO Q4H PRN PRN 09/09/20 Amlodipine [Norvasc] 5 mg PO DAILY 09/09/20 Anastrozole [Arimidex] 1 mg PO DAILY 09/09/20 Enoxaparin [Lovenox] 80 mg SC Q12@0600,1800 09/09/20 Gabapentin [Neurontin] 300 mg PO TID 09/09/20 Hydrochlorothiazide [Hctz] 25 mg PO DAILY 09/09/20 Losartan Potassium 50 mg PO DAILY 09/09/20 Magnesium Oxide 500 mg PO DAILY 09/09/20 Omeprazole [Prilosec] 20 mg PO DAILY 09/09/20 Ondansetron [Zofran] 8 mg PO Q8H PRN PRN 09/09/20 Tramadol HCl 50 mg PO Q6H PRN 09/09/20 Vit C/E/Zn/Coppr/Lutein/Zeaxan [Preservision Areds 2 Softgel] 2 tab PO DAILY 09/09/20 proMETHazine tablet [Phenergan tablet] 25 mg PO Q6H PRN PRN 09/09/20 Ciprofloxacin [Cipro] 500 mg PO BID #6 tab 09/11/20 Nystatin 500,000 unit PO 4X/DAY #40 udc 09/11/20 Potassium Chloride [K-Dur] 20 meq PO BIDCM #30 tab 09/11/20 Furosemide [Lasix] 40 mg PO DAILY #30 tab 09/12/20 The following prescriptions were given: Ciprofloxacin [Cipro] 500 mg PO BID #6 tab Transmission Status: Received by [id number] Potassium Chloride [K-Dur] 20 meq PO BIDCM #30 tab Transmission Status: Received by [id number] Furosemide [Lasix] 40 mg PO DAILY #30 tab Transmission Status: Pending to [id number] Nystatin 500,000 unit PO 4X/DAY #40 udc Transmission Status: Received by [id number] Primary Care Physician: Amador Oropeza MD [Primary Care Provider] - Please follow up with your Primary Care Physician in: in 1-2 weeks Test Results: Test results from this visit will be discussed in further detail at your follow- up appointment, if applicable. Please Follow Up With: Yung Amador DO When: as scheduled Proposed Discharge Date: 09/12/20
--- NOTE | 2020-09-12 07:42 | PCM.DC.SUM ---
Discharge Date and Diagnosis - Problem List Patient Problems: Active and Suspected Problems Nausea and vomiting (Acute) Dyspnea and respiratory abnormalities (Acute) Date of Admission: 09/09/20 Date of Discharge: 09/12/20 - Primary Discharge Diagnosis Acute Problems: Active Problems Nausea and vomiting (Acute) Dyspnea and respiratory abnormalities (Acute) - Secondary Discharge Diagnosis Chronic Problems: Chronic Problems Metastatic malignant neoplasm to breast (Chronic) Hospital Course and Treatment Imaging Results: Clinical Impression(s) from Imaging Studies Chest X-Ray 09/09/20 07:27 IMPRESSION: No interval change Electronically Signed: Anibal Simmons MD at 9:10 EST , Service support , Abdomen Ultrasound 09/09/20 10:04 IMPRESSION: Heterogeneous hepatic echotexture which may be secondary to cirrhosis or hepatitis. Mass including metastatic disease is of concern, correlation with the CT would be useful. Small amount of ascites. Electronically Signed: Kiko Farah MD at 13:36 EST Tel , Service support , Chest CTA 09/11/20 09:02 IMPRESSION: Bilateral pleural effusions left greater than right with volume loss in the left hemithorax. No evidence of a pulmonary embolism. Electronically Signed: Tip Zhao, at 10:22 EST , Service support , Thoracentesis Ultrasound 09/11/20 10:43 IMPRESSION: Ultrasound-guided left thoracentesis. Electronically Signed: Tip Zhao, at 15:12 EST , Service support , Chest X-Ray 09/11/20 14:46 IMPRESSION: Status post left thoracentesis. There is no evidence of pneumothorax. Electronically Signed: Tip Zhao, at 15:00 EST , Service support , Summary of Care Provided: Patient is an 80-year-old lady with history of recurrent metastatic breast CA currently undergoing chemo admitted with intractable nausea vomiting 1. Acute dyspnea Order D-dimer as part of patient's evaluation which came back elevated. CTA of the chest ordered for subsequent evaluation (of note patient is known to have DVT involving the left upper extremity for which patient is on Lovenox) 2. Intractable nausea vomiting ?Suspected to be secondary to gastritis admitted to regular nursing floor for symptomatic management in addition to PPI 3. Acute transaminitis To be secondary to frequent use of acetaminophen. Admitted to regular nursing floor with serial hepatic function tests ordered. No significant improvement in her transaminitis -09/11/2020 patient has continues to improve. -1321 ultrasound of the abdomen demonstrated Heterogeneous hepatic echotexture which may be secondary to cirrhosis or hepatitis. Mass including metastatic disease is of concern, correlation with the CT would be useful patient was informed of above instructed to follow-up with her primary oncologist for subsequent work-up as outpatient 4. Chronic left-sided pleural effusion ?Malignant pleural effusion plan is for patient to undergo thoracocentesis if patient becomes symptomatic -09/11/2020 plan is for patient to undergo ultrasound guided thoracocentesis if has significant pleural effusion on CTA ordered above -09/12/2020; patient underwent ultrasound-guided thoracocentesis with 800 mL of fluid taken off with significant improvement in his symptoms 5. VTE involving the left upper extremity ?Patient is on Lovenox 6. Hypertension - Blood pressure controlled, home medications continued with dose adjustment as needed 7. Hypokalemia ?Corrected per protocol 8. Metastatic breast CA ?Currently being managed as outpatient 9. Hypokalemia ?Corrected per protocol Patient Problems: Active and Suspected Problems Nausea and vomiting (Acute) Dyspnea and respiratory abnormalities (Acute) Objective: GENERAL: cooperative HEENT: Atraumatic; EYES; Anicteric, Normal Conjunctiva NECK; supple, normal thyroid, RESPIRATORY: Diminished to auscultation CARDIOVASCULAR: Regular S1 S2, GI: soft, normoactive bowel sounds, : No Renal angle tenderness; EXTREMITIES: Edema involving the left upper extremity MUSCULOSKELETAL: no muscle waisting NEURO: Awake; no lateralizing signs. SKIN: No Rash PSYCH; Flat affect - Physical Exam Vitals/I&O's: Vital Signs Temp Pulse Resp BP Pulse Ox 98.2 F 77 16 134/69 H 97 09/12/20 02:53 09/12/20 05:11 09/12/20 02:53 09/12/20 02:53 09/12/20 02:53 Oxygen Delivery Method [3] Room Air Oxygen Delivery Method [2] Room Air Oxygen Delivery Method [1 ( Room Air Initial Baseline)] Oxygen Delivery Method Room Air Weight: 93 kg Body Mass Index (BMI) 33.4 Intake and Output for Last 24 Hours 09/10/20 09/11/20 09/12/20 23:59 23:59 23:59 Intake Total 3141.66 / 3141.66 1926.25 / 1926.25 200 / 200 Output Total 5850 / 5850 350 / 350 Balance 3141.66 / 3141.66 -3923.75 / -3923.75 -150 / -150 Laboratory Results 09/11/20 05:44: Lactate Dehydrogenase 196 09/11/20 08:16: D-Dimer Quant (PE/DVT) 1.84 H* 09/11/20 12:30: Urine Color Straw, Urine Clarity Sl. Cloudy, Urine pH 6.5, Ur Specific [place] 1.010, Urine Protein Negative, Urine Glucose (UA) Normal, Urine Ketones Negative, Urine Occult Blood Negative, Urine Nitrite Negative, Urine Bilirubin Negative, Urine Urobilinogen Normal, Ur Leukocyte Esterase 25 H, Urine RBC 0 SEEN, Urine WBC 0 SEEN, Ur Squamous Epith Cells 0 SEEN, Urine Bacteria 0 SEEN, Urine Mucus 0 SEEN 09/11/20 14:35: Fluid Glucose 133 H, Fluid Total Protein 3.1, Fluid LDH 73 09/11/20 14:35: Fluid Source THORACENTESIS, Fluid Color YELLOW, Fluid Appearance CLEAR, Fluid WBC 0.553, Fluid RBC 418, Fluid Tot Cell Count 0.663 H, Fld Polynuclear WBCs # 0.036, Fld Polynuclear WBCs % 6.5, Fluid Mononuclear WBCs 0.517, Fld Mononuclear WBCs % 93.5, Fluid Neutrophils 6, Fluid Lymphocytes 46, Fluid Monocytes 4, Fluid Macrophages 4, Fld Mesothelial Cells 40, Fl Pathologist Comment May follow, Fluid Comment 2 SEE COMMENT 09/12/20 06:13: WBC 2.3 L, RBC 3.32 L, Hgb 10.1 L, Hct 31.3 L, MCV 94.3, MCH 30.4, MCHC 32.3, RDW Std Deviation 55.3 H, RDW Coeff of Katelyn 16.0 H, Plt Count 139 L, MPV 9.2, Immature Gran % (Auto) 0.900, Neut % (Auto) 32.1 L, Lymph % (Auto) 56.1 H, Grant % (Auto) 9.6, Eos % (Auto) 0.0, Baso % (Auto) 1.3 H, Absolute Neuts (auto) 0.7 L, Absolute Lymphs (auto) 1.28, Nucleated RBC % 0, Differential Comment SCANNED 09/12/20 06:13: Sodium 144, Potassium 3.5, Chloride 110 H, Carbon Dioxide 31.0, Anion Gap 3 L, BUN 16, Creatinine 0.39 L, Estim Creat Clear Calc 38.75, Est GFR (MDRD) Af Amer 201, Est GFR (MDRD) Non-Af 166, BUN/Creatinine Ratio 40.6 H, Glucose 88, Calcium 7.7 L, Total Bilirubin 0.40, AST 81 H, ALT 81 H, Alkaline Phosphatase 126 H, Total Protein 5.1 L, Albumin 2.1 L, Globulin 3.0, Albumin/Globulin Ratio 0.7 L Current Medications Amlodipine Besylate (Amlodipine 5 Mg Tablet) 5 mg PO DAILY [facility] Last Admin: 09/11/20 09:04 Dose: 5 mg Documented by: Anastrozole (Anastrozole 1 Mg Tablet) 1 mg PO DAILY [facility] Last Admin: 09/11/20 09:05 Dose: 1 mg Documented by: Enoxaparin Sodium (Enoxaparin 80 Mg/0.8 Ml Syringe) 80 mg SC Q12 [facility] Last Admin: 09/11/20 20:42 Dose: 80 mg Documented by: Fentanyl Citrate (Fentanyl 100 Mcg/2 Ml Ampul) 25 mcg IV Q4H PRN PRN PRN Reason: Pain Score 1-10 Last Admin: 09/10/20 18:37 Dose: 25 mcg Documented by: Gabapentin (Gabapentin 300 Mg Capsule) 300 mg PO TID [facility] Last Admin: 09/12/20 06:27 Dose: 300 mg Documented by: Lorazepam (Lorazepam 0.5 Mg Tablet) 0.5 mg PO Q6H PRN PRN PRN Reason: ANXIETY Last Admin: 09/11/20 10:00 Dose: 0.5 mg Documented by: Losartan Potassium (Losartan Potassium 50 Mg Tablet) 50 mg PO DAILY [facility] Last Admin: 09/11/20 09:04 Dose: 50 mg Documented by: Nystatin (Nystatin 500,000 Unit/5 Ml Udc) 500,000 unit PO 4X/DAY [facility] Last Admin: 09/11/20 20:40 Dose: Not Given Documented by: Ondansetron HCl (Ondansetron 4 Mg/2 Ml Vial) 4 mg IV Q6H PRN PRN PRN Reason: NAUSEA/VOMITING Last Admin: 09/09/20 10:45 Dose: 4 mg Documented by: Pantoprazole Sodium (Pantoprazole Sodium 20 Mg Tablet) 20 mg PO DAILY [facility] Last Admin: 09/11/20 09:04 Dose: 20 mg Documented by: Potassium Chloride (Potassium Chloride 20 Meq Tablet) 20 meq PO BIDCM [facility] Last Admin: 09/11/20 17:52 Dose: 20 meq Documented by: Sodium Chloride (0.9% Saline Lock 10 Ml Syringe) 10 - 40 ml IV UD PRN PRN Reason: SALINE FLUSH Last Admin: 09/11/20 12:05 Dose: 10 ml Documented by: Temazepam (Temazepam 15 Mg Capsule) 15 mg PO QHS PRN PRN PRN Reason: INSOMNIA Discharge Diet: No Restrictions Discharge Activity: Return to Normal Activity Home Medications: Medications to take at Discharge traMADol [Ultram] 50 mg PO Q4H PRN PRN 3 Days #20 tab 09/08/20 Acetaminophen [Tylenol] 500 mg PO Q4H PRN PRN 09/09/20 Amlodipine [Norvasc] 5 mg PO DAILY 09/09/20 Anastrozole [Arimidex] 1 mg PO DAILY 09/09/20 Enoxaparin [Lovenox] 80 mg SC Q12@0600,1800 09/09/20 Gabapentin [Neurontin] 300 mg PO TID 09/09/20 Hydrochlorothiazide [Hctz] 25 mg PO DAILY 09/09/20 Losartan Potassium 50 mg PO DAILY 09/09/20 Magnesium Oxide 500 mg PO DAILY 09/09/20 Omeprazole [Prilosec] 20 mg PO DAILY 09/09/20 Ondansetron [Zofran] 8 mg PO Q8H PRN PRN 09/09/20 Tramadol HCl 50 mg PO Q6H PRN 09/09/20 Vit C/E/Zn/Coppr/Lutein/Zeaxan [Preservision Areds 2 Softgel] 2 tab PO DAILY 09/09/20 proMETHazine tablet [Phenergan tablet] 25 mg PO Q6H PRN PRN 09/09/20 Ciprofloxacin [Cipro] 500 mg PO BID #6 tab 09/11/20 Nystatin 500,000 unit PO 4X/DAY #40 udc 09/11/20 Potassium Chloride [K-Dur] 20 meq PO BIDCM #30 tab 09/11/20 Furosemide [Lasix] 40 mg PO DAILY #30 tab 09/12/20 Following Prescriptions Were Given to Patient: Ciprofloxacin [Cipro] 500 mg PO BID #6 tab Transmission Status: Received by [id number] Potassium Chloride [K-Dur] 20 meq PO BIDCM #30 tab Transmission Status: Received by [id number] Furosemide [Lasix] 40 mg PO DAILY #30 tab Transmission Status: Pending to [id number] Nystatin 500,000 unit PO 4X/DAY #40 udc Transmission Status: Received by [id number] Primary Care Physician: Amador Oropeza MD [Primary Care Provider] - Please follow up with your Primary Care Physician in: in 1-2 weeks Please Follow Up With: Yung Amador DO When: as scheduled Patient Instructions: Thoracentesis Disposition: Home Minutes spent on discharge:: 35 Patient Condition:: Stable Medical Necessity - Tobacco Use Smoking Status: Never smoker Tobacco Use: Non-smoker Meaningful Use Info Meaningful Use Diagnoses (Choose all that apply): None applicable Inpatient E&M: 55147 [facility]
[2020-09-12 07:47] VITALS: BP 157/94; PULSE 100; RESP 18; TEMP 36.3; O2SAT 96
[2020-09-12] MEDS: Anastrozole 1 MG TABLET PO (08:06)
[2020-09-12] MEDS: Enoxaparin 80 MG/0.8 ML Syringe SC (08:07)
[2020-09-12] MEDS: Losartan Potassium 50 MG Tablet PO (08:07)
[2020-09-12] MEDS: Pantoprazole Sodium 20 MG Tablet PO (08:08)
[2020-09-12] MEDS: amLODIPine 5 MG Tablet PO (08:08)
[2020-09-12 08:51] VITALS: PULSE 86
[2020-09-12 10:34] VITALS: BP 141/82; PULSE 87; RESP 18; TEMP 36.6; O2SAT 97
--- NOTE | 2020-09-12 10:44 | PHA.DC.MR ---
Pharmacy Service has performed discharge medication reconciliation for this patient. The patient's discharge medication list was reviewed for discrepancies and discrepancies were resolved. Home Medications traMADol [Ultram] 50 mg PO Q4H PRN PRN 3 Days #20 tab 09/08/20 Acetaminophen [Tylenol] 500 mg PO Q4H PRN PRN 09/09/20 Amlodipine [Norvasc] 5 mg PO DAILY 09/09/20 Anastrozole [Arimidex] 1 mg PO DAILY 09/09/20 Enoxaparin [Lovenox] 80 mg SC Q12@0600,1800 09/09/20 Gabapentin [Neurontin] 300 mg PO TID 09/09/20 Hydrochlorothiazide [Hctz] 25 mg PO DAILY 09/09/20 Losartan Potassium 50 mg PO DAILY 09/09/20 Magnesium Oxide 500 mg PO DAILY 09/09/20 Omeprazole [Prilosec] 20 mg PO DAILY 09/09/20 Ondansetron [Zofran] 8 mg PO Q8H PRN PRN 09/09/20 Tramadol HCl 50 mg PO Q6H PRN 09/09/20 Vit C/E/Zn/Coppr/Lutein/Zeaxan [Preservision Areds 2 Softgel] 2 tab PO DAILY 09/09/20 proMETHazine tablet [Phenergan tablet] 25 mg PO Q6H PRN PRN 09/09/20 Ciprofloxacin [Cipro] 500 mg PO BID #6 tab 09/11/20 Nystatin 500,000 unit PO 4X/DAY #40 udc 09/11/20 Potassium Chloride [K-Dur] 20 meq PO BIDCM #30 tab 09/11/20 Furosemide [Lasix] 40 mg PO DAILY #30 tab 09/12/20
[2020-09-13 13:14] LABS: Pathologist Comment/Body Fluid Reviewed
== END 2020-09-12 10:42 | disposition home or self-care (01) ==
LOC: ED 07:53 → MS3 10:01
PROVIDERS: Admitting Provider Internal Medicine; Emergency Provider Emergency Medicine; PCP Family Medicine; Visit Provider Internal Medicine
DX: R11.2 Nausea with vomiting, unspecified (principal); R06.00 Dyspnea, unspecified; C50.919 Malignant neoplasm of unspecified site of unspecified female breast; I10 Essential (primary) hypertension; R74.8 Abnormal levels of other serum enzymes; E87.6 Hypokalemia; R74.01 Elevation of levels of liver transaminase levels; I82.622 Acute embolism and thrombosis of deep veins of left upper extremity; J91.0 Malignant pleural effusion; Z79.899 Other long term (current) drug therapy; Z79.01 Long term (current) use of anticoagulants; Z92.21 Personal history of antineoplastic chemotherapy
CPT/HCPCS: 32555; 36415; 71045; 71046; 71275; 76705; 80053; 81001; 82945; 83615; 83690; 84157; 85025; 85379; 87086; 87088; 88108; 88305; 88313; 88341; 88342; 89050; 93005; 96361; 96372; 96374; 96375; 96376; 97802; 99218; 99283; J7030; Q9967; A4216; G0378; J1940; J2405

== ENCOUNTER 2020-09-27 05:16 | Emergency (ER) | payer MEDICARE, SELFPAY ==
[2020-09-09 10:12] VITALS: BMI 33.4
[2020-09-27 05:19] VITALS: BP 136/55; PULSE 100; RESP 24; TEMP 36.6; O2SAT 97; BMI 32.8
[2020-09-27 05:24] VITALS: O2SAT 997
--- NOTE | 2020-09-27 05:45 | EKG12_ITS ---
Test Reason : SOB Blood Pressure : / mmHG Vent. Rate : 089 BPM Atrial Rate : 089 BPM P-R Int : 138 ms QRS Dur : 066 ms QT Int : 346 ms P-R-T Axes : 011 014 051 degrees QTc Int : 420 ms Normal sinus rhythm Low voltage QRS Borderline ECG Confirmed by CARITO SANTANA, SHAVONNE ([id number]), video news editor NICK SEGAL ([id number]) on 10/01/2020 11:20:02 AM Referred By: ASHLEY Confirmed By:BAKARI ARZATE MD
--- NOTE | 2020-09-27 05:45 | RAD_ITS ---
STUDY: X-RAY CHEST REASON FOR EXAM: Female, 80 years old. patient with metastatic breast cancer with shortness of breath. -- known plerual effusion. -- patient''s last thoracentesis was around september 11. TECHNIQUE: Single AP portable view of the chest. COMPARISON: 09/11/2020 FINDINGS: There are superimposed monitor leads. Increased opacification of the left lung base with adjacent compression of parenchyma consistent with moderate left pleural fluid. There is mild pleural thickening along the left upper chest wall. Mild atelectasis right base. Bilateral apical surgical clips. Small right pleural fluid. Obscured heart. There are stable calcified mediastinal lymph nodes. Normal visualized pulmonary arteries. There is stable atherosclerotic calcification of the aortic arch with tortuosity. There are diffuse degenerative changes of the visualized thoracic spine. Normal visualized ribs, clavicles, and shoulders. There is no demonstrated abnormality of the visualized soft tissue structures of the upper abdomen. RAD/Chest 1 View (Portable) IMPRESSION: Increasing left pleural fluid since previous examination with moderate degree, small right pleural fluid. There is adjacent compression of parenchyma possible atelectasis in the right medial lung base. Postsurgical changes of the chest wall. Other nonacute findings as outlined above. Electronically Signed: Lakeisha Cheng MD at 6:15 EST , Service support ,
--- NOTE | 2020-09-27 05:54 | ED.VIS.GEN ---
History of Present Illness Chief Complaint: Shortness of Breath Narrative: Patient has a history of metastatic breast cancer, she has a chronic pleural effusion she was found to have a worse pleural effusion yesterday and was supposed to be set up for thoracentesis today, however she was unable to sleep due to her dyspnea. She has no fever or chills. She denies chest pain, she has chronic back pain and breast pain. She also has left arm DVTs for which she is on Eliquis. Past medical history: Reviewed, metastatic breast cancer and DVTs Medications: Reviewed Social history: Noncontributory Review of systems: All systems negative except as indicated General: Denies: Fever Eyes: Denies: Visual changes - bilaterally ENT: Denies: Rhinorrhea, Sore throat Cardiovascular: Denies: Chest pain Respiratory: Dyspnea as in HPI Gastrointestinal: Denies: Abdominal pain, Nausea, Vomiting Genitourinary: Denies: Dysuria Musculoskeletal: Chronic back pain Skin: Denies: Rash Neurological: Denies: Headache, no focal weakness Psych: Reports: negative Hematologic: Denies: Easy bruising, Easy bleeding Physical exam General: Patient appears in some distress Head: Normocephalic, Atraumatic Eyes: Conjunctiva not pale ENT: Moist mucous membranes Neck: Supple, Nontender, No lymphadenopathy Cardiovascular: Regular rate, Regular rhythm Respiratory: Decreased left-sided breath sounds. Otherwise she is speaking in full sentences and does not appear in significant distress. She does not desaturate on room air. Abdomen: Soft, Nontender, Nondistended Back: Nontender, Normal Inspection. Negative for: CVA tenderness Extremities: Some edema left upper extremity Skin: Normal color, No rash Neurological: Alert, Normal Strength, Normal Sensation Psychological: Normal affect Past Medical History - Allergies and Home Meds Allergies/Adverse Reactions: Allergies cephalexin [From Keflex] Allergy (Verified 09/27/20 05:24) Rash oxycodone Adverse Reaction (Verified 09/27/20 05:24) Vomiting Primary Care Physician: Amador Oropeza MD [Primary Care Provider] - 3-5 Days Surgical History: appendectomy, cataract, cholecystectomy, hysterectomy, - - Double mastectomy Smoking Status: Never smoker - Family History Maternal Family History: Reports: Heart Disease Paternal Family History: Reports: - - Alcoholism Physical Exam Vital Signs/Narrative: Vital Signs Temp Pulse Resp BP Pulse Ox 09/27/20 05:19 98 F 100 24 H 136/55 H 97 Diagnostic/Tx/Re-eval - Medical Decision Making Patient was placed on oxygen she was given morphine and Zofran. Interventional radiology will not be in for the next few hours patient will be turned over to the oncoming ED physician, if we are able to get a stat thoracentesis and she feels better she can go home if not she will need to be hospitalized. ED Disposition - Plan for ED Patient: Diagnosis: Metastatic breast cancer, Pleural effusion Instructions: ED Pleural Effusion Referrals: Amador Oropeza MD [Primary Care Provider] - 3-5 Days
[2020-09-27 05:59] LABS: Absolute Lymphocyte Count 1.03 X10^3/uL (0.83-4.51); Absolute Neutrophil Count 12.4 X10^3/uL (2.0-7.7); Basophil# 0.05 X10^3/uL; Basophil% 0.3 % (0-1); Eosinophil# 0.24 X10^3/uL; Eosinophils% 1.6 % (0-5); Hematocrit 43.1 % (37-47); Hemoglobin 13.6 g/dL (12.0-15.0); Lymphocyte # 1.03 X10^3/ul (4.0); Lymphocyte % 6.8 % (19-41); Mean Corp Hgb Conc 31.6 g/dL (32-36); Mean Corpuscular Hgb 30.4 pg (27.0-32.0); Mean Corpuscular Volume 96.4 fL (81-99); Mean Platelet Vol. 9.7 fl (6.2-12.0); Monocyte% 7.3 % (0-10); NRBC Flagged by Analyzer 0 % (0-5); Neutrophil # 12.37 X10^3/uL (2.7-7.7); Neutrophil % 81.9 % (47-70); Platelet Count 297 K/mm3 (150-450); RBC Distribution Width CV 16.8 % (11.6-14.6); RBC Distribution Width SD 59.3 fl (35.1-43.9); Red Blood Count 4.47 M/mm3 (4.2-5.4); White Blood Count 15.1 K/mm3 (4.4-11.0)
[2020-09-27] MEDS: Ondansetron 4 MG/2 ML Vial IV (06:04)
[2020-09-27] MEDS: Morphine 4 MG/ML Syringe IV (06:05)
[2020-09-27 06:11] LABS: ALB/GLOB Ratio 0.6 RATIO (0.9-2.4); AST(SGOT) 37 U/L (15-37); Alanine Aminotransfer ALT/SGPT 22 U/L (13-56); Albumin, Serum 2.5 g/dL (3.2-5.0); Alkaline Phosphatase 98 U/L (45-117); Anion Gap 7 (5-15); BUN 15 mg/dL (7-18); BUN/Creat Ratio 22.3 RATIO (10-20); Chloride 104 mmol/L (98-107); Creatinine, Serum 0.67 mg/dL (0.55-1.02); EST Glomerular Filtration Rate 90 mL/min (>60); Est Glom Filt Rate - Afr Amer 108 mL/min (>60); Estimated Creatinine Clearance 38.75 ml/min; Globulin 4.1 g/dL (2.2-4.2); Glucose 117 mg/dL (74-106); Potassium 3.7 mmol/L (3.5-5.1); Protein, Total 6.6 g/dL (6.4-8.2); Sodium Level 140 mmol/L (136-145)
[2020-09-27 07:16] VITALS: BP 110/54; PULSE 87; RESP 20; O2SAT 97
--- NOTE | 2020-09-27 08:10 | US_ITS ---
PROCEDURE: ULTRASOUND GUIDED THORACENTESIS. DATE: 09/27/2020. INDICATION: Female, 80 years old. Left pleural effusion. PHYSICIAN: Tip Zhao M.D. PROCEDURE: The risks, benefits, and alternatives to the procedure were explained to the patient. The specific risks of bleeding, infection, and pneumothorax requiring chest tube insertion were discussed and accepted. Written informed consent was obtained. Ultrasonographic evaluation of the left lower pleural space was carried out. An adequate pocket was identified. The patient was placed in the sitting, upright position. The overlying skin was prepped and draped in sterile fashion. 1% lidocaine was administered subcutaneously for local anesthesia. Under ultrasound guidance, a 5 [place] thoracentesis needle/catheter system was advanced into the left posterior lower pleural fluid collection. Approximately 950 mL of lauren-colored fluid was drained. The catheter was removed, and a sterile dressing was applied. The patient tolerated the procedure well. A chest x-ray was ordered. US/Thoracentesis W US IMPRESSION: Ultrasound-guided left thoracentesis. Electronically Signed: Tip Zhao MD at 10:19 EST , Service support ,
[2020-09-27 08:12] LABS: BNP,B-Type NATRIURETIC PEPTIDE 47.8 pg/mL (0-100)
--- NOTE | 2020-09-27 10:00 | RAD_ITS ---
STUDY: X-RAY CHEST REASON FOR EXAM: Female, 80 years old. POST THORA TECHNIQUE: AP inspiration and expiration views. COMPARISON: Comparison is made with prior examination earlier in the day. FINDINGS: The patient is status post left thoracentesis. Mild scarring and/or atelectasis persist at the left lung base. There is no evidence of pneumothorax. RAD/Chest Insp/Exp 2 View IMPRESSION: Status post left thoracentesis. There is no evidence of pneumothorax. Electronically Signed: Tip Zhao MD at 10:33 EST , Service support ,
[2020-09-27 10:14] VITALS: BP 113/61; BP 119/65; BP 99/50; PULSE 106; PULSE 93; PULSE 99; RESP 18; O2SAT 92; O2SAT 96
[2020-09-27 11:31] VITALS: BP 125/63; PULSE 91; RESP 15; O2SAT 97
== END 2020-09-27 11:35 | disposition home or self-care (01) ==
PROVIDERS: Emergency Medicine; Emergency Provider Emergency Medicine; PCP Family Medicine
DX: C50.919 Malignant neoplasm of unspecified site of unspecified female breast (principal); J90 Pleural effusion, not elsewhere classified; Z90.710 Acquired absence of both cervix and uterus; Z86.718 Personal history of other venous thrombosis and embolism; Z79.02 Long term (current) use of antithrombotics/antiplatelets
CPT/HCPCS: 32555; 71045; 71046; 80053; 83880; 85025; 93005; 96374; 96375; 99284; A4216; J2405

== ENCOUNTER 2020-09-30 08:00 | Inpatient (IN) | payer MEDICARE, SELFPAY ==
[2020-09-30] VITALS (40 sets, daily range): BP systolic 87–152; BP diastolic 48–106; PULSE 67–184; RESP 12–35; TEMP 35–36.6; O2SAT 85–98; BMI 32.9; BMI 32.7
--- NOTE | 2020-09-30 08:05 | CT_ITS ---
STUDY: CTA CHEST REASON FOR EXAM: Female, 80 years old. SHORT OF BREATH, RIGHT SHOULDER PAIN -- HX-BREAST CA RADIATION DOSAGE (If Supplied By Facility): CTDIvol = ( 13.39 ) mGy, DLP = ( 412.40 ) mGycm TECHNIQUE: The examination was performed with the intravenous administration of IV 100mL Isovue-370. Post-processing of the angiographic images was performed, with multiplanar reformation and 3D reconstruction. Individualized dose optimization techniques were used for this CT. COMPARISON: September 11, 2020 CT scan chest FINDINGS: There is limited enhancement of the main pulmonary artery and right and left pulmonary arteries. There is limited enhancement of the bilateral peripheral pulmonary arteries. There is no demonstrated pulmonary embolism. There is atherosclerotic calcification of the aortic arch with tortuosity. There is no demonstrated aortic dissection. There is mild cardiac enlargement. There is a small pericardial effusion. There is crowding of the mediastinum. There is a abnormal thickened appearance of the periphery of the mediastinal fat suggesting metastatic disease. This is unchanged since the prior study. There is a crowded appearance of the bilateral raven associated with moderate to large bilateral effusions. Normal visualized trachea and bronchi. There moderate to large bilateral effusions with lower lobe atelectasis. This is seen left greater than right. There is left lingular atelectasis and/or infiltrate. There is right lower lobe atelectasis. There is a masslike infiltrate appearance of the chest wall with edema of the breast tissue and the underlying pectoralis muscles. There is a thick-walled appearance of the skin in the anterior chest. There is right side subclavicular 2.0 x 1.8 cm lymphadenopathy, image #[id number]. There is lymphadenopathy along the right side chest wall. There are ill-defined areas of probable matted lymph nodes within the left axilla with a poorly defined appearance of the venous structures. The bones are inhomogeneous. Throughout the visualized posterior aspect of the ribs there is sclerotic density potentially associated with radiation and/or metastatic disease. There is a fluid tracking into the deep sulcus. Is visualized degenerative changes of bilateral acromioclavicular joints. There is limited visualization of the upper abdomen. There is an elongated appearance of the left hepatic lobe. CT/CTA Chest W/WO Contrast IMPRESSION: Persistent, Diffuse body wall edema skin thickening ill-defined and thickened appearance of the breast tissue pectoralis muscle with and associated skin thickening. Recommend correlation with any recent radiation therapy. There are abnormal bilateral axillary lymph nodes more defined on the right than the left. Findings are concerning for the possibility of a congested or possible infiltrated appearance of the left axilla. Recommend consideration for ultrasound of the bilateral upper extremities if appropriate which can cause chest wall congestion and edema. There are persistent areas of sclerotic density within the posterior ribs which may be associated with possible radiation versus metastatic disease. There are large persistent bilateral effusions with atelectasis. There is persistent crowding of the mediastinum and chest with a thick-walled appearance of the periphery of the mediastinum with reactive enlarge lymphadenopathy highly suspicious for metastatic disease. Recommend consideration for bone scan. The study is limited for the evaluation for pulmonary embolism.. There is note visualized centrally located pulmonary embolism. Electronically Signed: Shania Gardner MD at 8:58 EST Tel , Service support ,
--- NOTE | 2020-09-30 08:05 | EKG12_ITS ---
Test Reason : SOB Blood Pressure : / mmHG Vent. Rate : 114 BPM Atrial Rate : 114 BPM P-R Int : 000 ms QRS Dur : 062 ms QT Int : 296 ms P-R-T Axes : 000 010 004 degrees QTc Int : 407 ms Sinus tachycardia Low voltage QRS Abnormal ECG Confirmed by KARLIE SANTANA, JUNAID ([id number]), make up editor NICK SEGAL ([id number]) on 10/01/2020 1:08:00 PM Referred By: MR Confirmed By:JUNAID ZIEGLER MD
[2020-09-30] MEDS: Aspirin 81 MG TAB.CHEW 324 MG PO (08:09)
[2020-09-30] MEDS: Morphine 4 MG/ML Syringe IV ×2 (08:16→08:40)
[2020-09-30 08:21] LABS: Basophil# 0.09 X10^3/uL; Eosinophil# 0.13 X10^3/uL; Hematocrit 46.6 % (37-47); Hemoglobin 14.4 g/dL (12.0-15.0); Lymphocyte # 3.87 X10^3/ul (4.0); Mean Corp Hgb Conc 30.9 g/dL (32-36); Mean Corpuscular Hgb 30.2 pg (27.0-32.0); Mean Corpuscular Volume 97.7 fL (81-99); Mean Platelet Vol. 9.9 fl (6.2-12.0); Monocyte# 3.96 X10^3/uL; NRBC Flagged by Analyzer 0.4 % (0-5); Neutrophil # 27.53 X10^3/uL (2.7-7.7); POSITIVE COUNT YES; POSITIVE DIFFERENTIAL YES; POSITIVE MORPHOLOGY YES; Platelet Count 218 K/mm3 (150-450); RBC Distribution Width CV 17.7 % (11.6-14.6); RBC Distribution Width SD 62.6 fl (35.1-43.9); Red Blood Count 4.77 M/mm3 (4.2-5.4)
[2020-09-30] MEDS: Ondansetron 4 MG/2 ML Vial IV ×2 (08:21→09:11)
--- NOTE | 2020-09-30 08:22 | NURSING ---
PER SHAYLEE, LAB, BLUE TOP HEMOLIZED
[2020-09-30 08:24] LABS: Differential Indicated SCAN CRITERIA MET; White Blood Count 38.1 K/mm3 (4.4-11.0)
[2020-09-30 08:37] LABS: Anion Gap 9 (5-15); BUN 27 mg/dL (7-18); BUN/Creat Ratio 27.4 RATIO (10-20); Calcium,Total 8.2 mg/dL (8.5-10.1); Chloride 102 mmol/L (98-107); Creatinine, Serum 0.98 mg/dL (0.55-1.02); EST Glomerular Filtration Rate 58 mL/min (>60); Est Glom Filt Rate - Afr Amer 70 mL/min (>60); Estimated Creatinine Clearance 39.54 ml/min; Glucose 140 mg/dL (74-106); Potassium 4.1 mmol/L (3.5-5.1); Sodium Level 138 mmol/L (136-145)
[2020-09-30 08:51] LABS: Dohle Bodies 1+; Lymphocyte 7 % (19-41); Metamyelocyte 1 % (0-1); Monocyte 9 % (0-10); Neutrophil-Band 4 % (0-5); Neutrophil-Segmented 79 % (47-70); Platelet Estimate ADEQUATE (ADEQ); Total Cells Counted 100 (MANUAL DIFF)
[2020-09-30 08:53] LABS: Red Cell Morphology NORM C+C NORMAL (NORM C&C)
[2020-09-30 08:55] LABS: Scan Smear per Review Criteria MANUAL DIFF
[2020-09-30 08:56] LABS: Absolute Lymphocyte Count 2.66 X10^3/uL (0.83-4.51); Absolute Neutrophil Count 31.6 X10^3/uL (2.0-7.7)
--- NOTE | 2020-09-30 09:03 | NURSING ---
HOSPITALIST PAGED DR OSEGUERA PAGED
--- NOTE | 2020-09-30 09:16 | ED.VIS.DYS ---
History of Present Illness Chief Complaint: Shortness of Breath Informant: Patient Narrative: Patient presenting for evaluation secondary to chest pain and shortness of breath. Patient has an underlying history of metastatic breast cancer and is undergoing treatments. Patient apparently was admitted a couple of weeks ago for thoracentesis of her left hemithorax secondary to recurrent pleural effusions from her malignancy. Patient has been dealing with shortness of breath over the course of the last couple of days but it became severe last night and is associated with a severe sharp right-sided chest pain and right shoulder pain. No exacerbating relieving factors with the pain. Shortness of breath is worse with any sort of exertion. Patient denies fevers or hemoptysis. She does have a history of a left upper extremity DVT for which she is currently on Eliquis. Additionally, the patient has had a family member tested positive for the coronavirus. She denies any presence of fevers. Review of systems otherwise negative. Past Medical History - Allergies and Home Meds Allergies/Adverse Reactions: Allergies cephalexin [From Keflex] Allergy (Verified 09/30/20 08:11) Rash oxycodone Adverse Reaction (Verified 09/30/20 08:11) Vomiting Primary Care Physician: Amador Oropeza MD [Primary Care Provider] - Prior records reviewed: Yes Past Medical History: - - Metastatic breast cancer, upper extremity DVT, hypertension Surgical History: appendectomy, cataract, cholecystectomy, hysterectomy, - - Double mastectomy Lives: Spouse/ Significant Other Smoking Status: Never smoker Alcohol: None Drugs: None - Family History Maternal Family History: Reports: Heart Disease Paternal Family History: Reports: - - Alcoholism Review of Systems All systems negative except as indicated General: Denies: Chills, Fever, Sweats Eyes: Denies: Visual changes - bilaterally, Diplopia ENT: Denies: Rhinorrhea, Sore throat Cardiovascular: Reports: Chest pain Respiratory: Reports: Dyspnea Gastrointestinal: Reports: Nausea, Vomiting Genitourinary: Denies: Dysuria, Hematuria, Frequency Musculoskeletal: Denies: Back pain, Extremity Pain Skin: Denies: Rash, Wounds Neurological: Denies: Headache, Weakness, Numbness Physical Exam Vital Signs/Narrative: Vital Signs Temp Pulse Resp BP Pulse Ox 09/30/20 09:00 101 H 24 H 152/87 H 97 09/30/20 08:41 97.5 F L 102 H 22 H 150/106 H 95 09/30/20 08:37 97.5 F L 105 H 35 H 150/106 H 92 09/30/20 08:30 98 09/30/20 08:19 114 H 27 H 148/94 H 92 09/30/20 08:05 95 09/30/20 08:01 95 F L 117 H 23 H 85 General: Acute Distress Head: Normocephalic, Atraumatic Eyes: Perrl, EOMI ENT: Moist mucous membranes, No rhinorrhea Neck: Supple, Nontender Cardiovascular: Regular rhythm, No murmurs, Tachycardia, - - 2+ radial pulses bilaterally symmetric Respiratory: - - Patient is in respiratory distress with tachypnea. Minimally decreased breath sounds at the bases, no rhonchi rales or wheezes. No retractions. Inflammatory changes on the patient's chest wall consistent with her breast cancer and mastectomy Abdomen: Soft, Nontender Extremities: Nontender Skin: Diaphoresis Neurological: Alert, Oriented x3 Psychological: Normal affect Diagnostic/Tx/Re-eval CTA PE Study: No Evidence of PE, - - Large bilateral pulmonary effusions. Inflammatory changes likely consistent with the patient's breast cancer Clinical Impression(s) from Imaging Studies Chest CTA 09/30/20 08:05 IMPRESSION: Persistent, Diffuse body wall edema skin thickening ill-defined and thickened appearance of the breast tissue pectoralis muscle with and associated skin thickening. Recommend correlation with any recent radiation therapy. There are abnormal bilateral axillary lymph nodes more defined on the right than the left. Findings are concerning for the possibility of a congested or possible infiltrated appearance of the left axilla. Recommend consideration for ultrasound of the bilateral upper extremities if appropriate which can cause chest wall congestion and edema. There are persistent areas of sclerotic density within the posterior ribs which may be associated with possible radiation versus metastatic disease. There are large persistent bilateral effusions with atelectasis. There is persistent crowding of the mediastinum and chest with a thick-walled appearance of the periphery of the mediastinum with reactive enlarge lymphadenopathy highly suspicious for metastatic disease. Recommend consideration for bone scan. The study is limited for the evaluation for pulmonary embolism.. There is note visualized centrally located pulmonary embolism. Electronically Signed: Shania Gardner MD at 8:58 EST Tel , Service support , Laboratory Data 09/30/20 09/30/20 09/30/20 08:12 08:12 08:12 WBC 38.1 H* RBC 4.77 Hgb 14.4 Hct 46.6 MCV 97.7 MCH 30.2 MCHC 30.9 L RDW Std Deviation 62.6 H RDW Coeff of Katelyn 17.7 H Plt Count 218 MPV 9.9 Immature Gran % (Auto) WATER SYSTEMS DESIGNER Neut % (Auto) WATER SYSTEMS DESIGNER Lymph % (Auto) WATER SYSTEMS DESIGNER [place] % (Auto) WATER SYSTEMS DESIGNER Eos % (Auto) WATER SYSTEMS DESIGNER Baso % (Auto) WATER SYSTEMS DESIGNER Absolute Neuts (auto) 31.6 H Absolute Lymphs (auto) 2.66 Total Counted 100 Neutrophils % (Manual) 79 H Band Neutrophils % 4 Lymphocytes % (Manual) 7 L Monocytes % (Manual) 9 Metamyelocytes % 1 Nucleated RBC % 0.4 Diff Path Review May foll Dohle Bodies 1+ Platelet Estimate ADEQUATE RBC Morphology NORM C+C APTT Cancelled Specimen Type Sample Site pH Bicarbonate Actual Total CO2 Base Excess O2 Saturation ABG pCO2 ABG pO2 Stu Test O2 Delivery Device Liter Flow Sodium 138 Potassium 4.1 Chloride 102 Carbon Dioxide 27.0 Anion Gap 9 BUN 27 H Creatinine 0.98 Estim Creat Clear Calc 39.54 Est GFR (MDRD) Af Amer 70 Est GFR (MDRD) Non-Af 58 L BUN/Creatinine Ratio 27.4 H Glucose 140 H Calcium 8.2 L Troponin I 0.039 09/30/20 09:20 WBC RBC Hgb Hct MCV MCH MCHC RDW Std Deviation RDW Coeff of Katelyn Plt Count MPV Immature Gran % (Auto) Neut % (Auto) Lymph % (Auto) [place] % (Auto) Eos % (Auto) Baso % (Auto) Absolute Neuts (auto) Absolute Lymphs (auto) Total Counted Neutrophils % (Manual) Band Neutrophils % Lymphocytes % (Manual) Monocytes % (Manual) Metamyelocytes % Nucleated RBC % Diff Path Review Dohle Bodies Platelet Estimate RBC Morphology APTT Specimen Type ART Sample Site R Radial pH 7.36 Bicarbonate Actual 24.0 Total CO2 25 Base Excess -1 O2 Saturation 92 L ABG pCO2 42.4 ABG pO2 65 L Stu Test Positive O2 Delivery Device NRB Liter Flow 15.0 Sodium Potassium Chloride Carbon Dioxide Anion Gap BUN Creatinine Estim Creat Clear Calc Est GFR (MDRD) Af Amer Est GFR (MDRD) Non-Af BUN/Creatinine Ratio Glucose Calcium Troponin I - EKG Initial EKG Interpretation: - - Sinus rhythm of 114 with frequent PVCs noted, isoelectric ST segments. Nonspecific T wave flattening. No evidence of acute ischemic changes. - Medical Decision Making Patient presented in respiratory distress. Patient was initially placed on the monitor and had a nonsustained run of ventricular tachycardia of around 4-5 beats. Patient was moved to the resuscitation room, defibrillation pads were placed on the patient's chest and IV was established. Patient was given aspirin. Initial EKG demonstrates frequent PVCs but no signs of ST segment changes or acute ischemic changes. Patient has a history of DVT, and with the onset of respiratory distress and chest pain initially I was concerned for the possibility of pulmonary embolism or dissection. Patient was expeditiously taken to CT scan, I remained at the patient's bedside throughout. CT angiogram of the chest per radiology demonstrates no evidence of central pulmonary emboli, shows bilateral pleural effusions and changes consistent with the patient's cancer. Patient continued to have frequent ventricular ectopy including bigeminy and some couplets, she was given 150 mg of amiodarone and this did improve the patient's ventricular ectopy. Patient was given multiple doses of morphine and Zofran secondary to her shoulder pain and nausea. Patient was noted to have a white blood cell count of 30 is consistent with the fact that she recently had a Neulasta injection. Patient was found to be coronavirus positive, she was given 6 mg of Decadron. I discussed patient's case with ICU, oncology, and the hospitalist. Patient will be admitted to the intensive care unit. Patient remains on a nonrebreather, most recent reevaluation at the patient at 0930 shows her to be having improvement of her respiratory status with saturations in the 96% range, heart rate dropping down to around 100 with less ectopy, and the patient appearing somewhat more comfortable. I did have a conversation with the patient's daughter about the severity of the patient's illness. Patient was admitted to intensive care in guarded condition. Disposition: Admit to ICU Critical care time (excluding procedures): 30-74 minutes ED Disposition - Plan for ED Patient: Disposition: Acute Care Hospital [facility] Diagnosis: Respiratory failure with hypoxia, COVID-19, Pleural effusion, Metastatic malignant neoplasm to breast Referrals: Amador Oropeza MD [Primary Care Provider] -
--- NOTE | 2020-09-30 09:19 | NURSING ---
ICU [facility] COVID 19, HYPOXIC RESP FAILURE, NIALL PLEURAL EFFUSIONS
[2020-09-30] MEDS: dexAMETHasone 4 MG/ML Vial 6 MG IV (09:20)
[2020-09-30 09:26] LABS: Allen Test Positive; Base Excess -1 mmol/L (-2 to +2); Blood Gas Specimen Type ART; O2 Delivery Device NRB; PO2 65 mmHG (75-100); SITE R Radial; SO2 92 % (95-99); Total Carbon Dioxide 25 mmol/L; pCO2 42.4 mmHg (35-45); pH 7.36 (7.35-7.45)
--- NOTE | 2020-09-30 10:37 | PCM.HP.STD ---
Problem List (1) Acute hypoxemic respiratory failure due to COVID-19 Status: Acute (2) DVT (deep venous thrombosis) Status: Acute (3) Hypertension Status: Chronic (4) Chronic bilateral pleural effusions Status: Acute (5) Metastatic malignant neoplasm to breast Status: Chronic (6) COVID-19 Status: Acute (7) Pleural effusion Status: Acute History of Present Illness Date of Admission: 09/30/20 Chief Complaint: Intermittent shortness of breath, worse for 3 days The patient is a 80 year old F with history of metastatic breast cancer on thoracocentesis, last 1, 4 days ago came to ER with acute on chronic dyspnea at rest, severe shortness of breath and chronic right shoulder pain. Patient has metastatic breast cancer with recurrent pleural effusion, metastasis to shoulder and axillary lymph. Patient has diffuse edema of chest wall, bilateral upper extremity lymphedema and upper half of abdominal wall. She also has chronic cough due to pleural effusion but got worse for last 3 to 4 days. It is predominantly dry Denies fever or chills, chest pain but has nausea and dry heaving. Did not get relief with Zofran. In ED, heart rate 117, respiratory rate 23, pulse ox 85% on room air. CT chest individually reviewed and shows large persistent bilateral pleural effusion with atelectasis and mediastinal lymphadenopathy suspicious for metastatic disease. Diffuse body wall edema of chest wall, breast tissue pectoralis muscle, skin thickening, bilateral gluteal lymphadenopathy. There is limited enhancement of main pulmonary and right and left branches but no demonstrated PE [] Past Medical History Past Medical History (Chronic Problems): Chronic Problems Metastatic malignant neoplasm to breast (Chronic) Hypertension (Chronic) Allergies cephalexin [From Keflex] Allergy (Verified 09/30/20 08:11) Rash oxycodone Adverse Reaction (Verified 09/30/20 08:11) Vomiting Home Medications: Ambulatory Orders Medication Instructions Recorded Acetaminophen [Tylenol] 500 mg PO Q4H PRN PRN 09/09/20 Amlodipine [Norvasc] 5 mg PO DAILY 09/09/20 Gabapentin [Neurontin] 300 mg PO TID 09/09/20 Hydrochlorothiazide [Hctz] 25 mg PO DAILY 09/09/20 Losartan Potassium 50 mg PO DAILY 09/09/20 Magnesium Oxide 500 mg PO DAILY 09/09/20 Omeprazole [Prilosec] 20 mg PO DAILY 09/09/20 Ondansetron [Zofran] 8 mg PO Q8H PRN PRN 09/09/20 Vit C/E/Zn/Coppr/Lutein/Zeaxan 2 tab PO DAILY 09/09/20 [Preservision Areds 2 Softgel] Potassium Chloride [K-Dur] 20 meq PO BIDCM #30 tab 09/11/20 Apixaban [Eliquis] 5 mg PO DAILY 09/27/20 Surgical History: appendectomy, cataract, cholecystectomy, hysterectomy, - - Double mastectomy Psychiatric History: No pertinent psych hx MECHANIC ASSISTANT History: No pertinent MECHANIC ASSISTANT history Lives: Spouse/ Significant Other Smoking Status: Never smoker Alcohol: None Drugs: None - *Family History Maternal History Items: Heart Disease Paternal History Items: - - Alcoholism Review of Systems Constitutional: Reports: Anorexia, Malaise, Weakness, Weight Change, Fatigue. Denies: Chills, Fever, Night Sweats HEENT: Denies: Head Aches, Sinus Congestion, Sinus Drainage Cardiovascular: Reports: Edema. Denies: Chest Pain, Chest Pressure, Palpitations Respiratory: Reports: Cough, Shortness of Breath, Shortness of breath at rest, Shortness of breath upon exertion. Denies: Sputum production Gastrointestinal: Reports: Nausea. Denies: Abdominal Pain, Vomiting Genitourinary: Denies: Dysuria, Frequency Gynecological: Reports: Breast symptoms Musculoskeletal: Denies: Joint Pain, Joint Tenderness Skin: Denies: Rash, Wounds Neurological: Reports: Balance problems. Denies: Focal weakness, Numbness, Tingling Psychiatric: Reports: Anxiety. Denies: Homicidal Ideations, Suicidal Ideations Hematologic/ Lymphatic: Denies: Easy Bruising, Easy Bleeding VTE Information - Inpt Only VTE Present on Admission: No VTE Mechan Device Prophylaxis: SCD's VTE Pharm Prophylaxis ordered?: Yes Reason prophylaxis not ordered:: Procedure Not Indicated - Routine dose of Eliquis Patient Problems: Active and Suspected Problems Respiratory failure with hypoxia (Acute) COVID-19 (Acute) Pleural effusion (Acute) - Physical Exam Vitals/I&O's: Vital Signs Temp Pulse Resp BP Pulse Ox 97.5 F L 95 25 H 137/76 H 96 09/30/20 09:37 09/30/20 09:37 09/30/20 09:37 09/30/20 09:37 09/30/20 09:37 Oxygen Flow Rate (L/min) 15 Oxygen Delivery Method Non-Rebreather Weight: 191 lb 12.835 oz Body Mass Index (BMI) 32.9 Intake and Output for Last 24 Hours 09/28/20 09/29/20 09/30/20 23:59 23:59 23:59 Intake Total / Balance General: Oriented x3, Cooperative, Lethargic, - HEENT: Atraumatic, PERRLA, EOMI, Normocephalic Oral: No Gingival or Mucosal Lesions/ Ulcerations, Dry Mucosa Neck: Supple, No JVD, Negative Carotid Bruits Lungs: Diminished - Air entry severely diminished in bilateral lungs. Bilateral coarse rhonchi present. Diffuse anterior posterior chest wall edema extending up to bilateral upper extremity and upper abdomen, Rhonchi, Short of Breath, Tachypneic, Using Accessory Muscles Cardiovascular: Regular rate, No murmurs Abdomen: Bowel Sounds Present, Soft, Non Tender, - - : Denies dysuria. No suprapubic or renal angle tenderness. Extremities: No edema, Capillary Refill Less than 3 Seconds Skin: No rashes, No breakdown Musculoskeletal: No Tenderness to Palpation of Joints or Extremities Lymphatic: - - Bilateral axillary lymphadenopathy Neurological: Cranial nerves II-XII grossly intact, Deep Tendon Reflexes 2+/4 and Symmetrical, Neuro grossly intact Psych/Mental Status: Normal Affect, Appropriate Microbiology Past 72 Hours 09/30/20 08:22 Mucosa - Nose SARS-CoV-2 Antigen (Rapid) - Final SARS-CoV-2 (COVID 19) Laboratory Results 09/30/20 08:12: WBC 38.1 H*, RBC 4.77, Hgb 14.4, Hct 46.6, MCV 97.7, MCH 30.2, MCHC 30.9 L, RDW Std Deviation 62.6 H, RDW Coeff of Katelyn 17.7 H, Plt Count 218, MPV 9.9, Immature Gran % (Auto) TOMBSTONE ERECTOR HELPER, Neut % (Auto) TOMBSTONE ERECTOR HELPER, Lymph % (Auto) TOMBSTONE ERECTOR HELPER, [place] % (Auto) TOMBSTONE ERECTOR HELPER, Eos % (Auto) TOMBSTONE ERECTOR HELPER, Baso % (Auto) TOMBSTONE ERECTOR HELPER, Absolute Neuts (auto) 31.6 H, Absolute Lymphs (auto) 2.66, Total Counted 100, Neutrophils % (Manual) 79 H, Band Neutrophils % 4, Lymphocytes % (Manual) 7 L, Monocytes % (Manual) 9, Metamyelocytes % 1, Nucleated RBC % 0.4, Diff Path Review May foll, Dohle Bodies 1+, Platelet Estimate ADEQUATE, RBC Morphology NORM C+C 09/30/20 08:12: Sodium 138, Potassium 4.1, Chloride 102, Carbon Dioxide 27.0, Anion Gap 9, BUN 27 H, Creatinine 0.98, Estim Creat Clear Calc 39.54, Est GFR (MDRD) Af Amer 70, Est GFR (MDRD) Non-Af 58 L, BUN/Creatinine Ratio 27.4 H, Glucose 140 H, Calcium 8.2 L, Troponin I 0.039 09/30/20 08:12: APTT Cancelled 09/30/20 09:20: Specimen Type ART, Sample Site R Radial, pH 7.36, Bicarbonate Actual 24.0, Total CO2 25, Base Excess -1, O2 Saturation 92 L, ABG pCO2 42.4, ABG pO2 65 L, Stu Test Positive, O2 Delivery Device NRB, Liter Flow 15.0 Current Medications Remdesivir 200 mg/ Sodium (Chloride) 250 mls @ 125 mls/hr IV X1 ONE Stop: 09/30/20 12:59 Remdesivir 100 mg/ Sodium (Chloride) 250 mls @ 125 mls/hr IV DAILY KHALIF Stop: 10/04/20 11:59 Assessment/Plan All Active Problems Nausea and vomiting (Acute) Dyspnea and respiratory abnormalities (Acute) Respiratory failure with hypoxia (Acute) COVID-19 (Acute) Pleural effusion (Acute) Acute hypoxemic respiratory failure due to COVID-19 (Acute) DVT (deep venous thrombosis) (Acute) Chronic bilateral pleural effusions (Acute) The patient is a 80 year old F with history of metastatic breast cancer on thoracocentesis, last one, 4 days ago came to ER with acute on chronic dyspnea at rest, severe shortness of breath and chronic right shoulder pain. CT chest individually reviewed and shows large persistent bilateral pleural effusion with atelectasis and mediastinal lymphadenopathy suspicious for metastatic disease. Diffuse body wall edema of chest wall, breast tissue pectoralis muscle, skin thickening, bilateral gluteal lymphadenopathy. There is limited enhancement of main pulmonary and right and left branches but no demonstrated PE 1. Acute hypoxic respiratory failure, acute on chronic dyspnea secondary to bilateral pleural effusion, COVID-19, bilateral atelectasis: Patient is being admitted in ICU. ER visit discussed with analysis engineer. Currently on noninvasive pressure support with AIRVO and if needed BiPAP with concern patient cannot tolerate well. ABG 7.3 on 15 L nonrebreather 2. SIRS (apnea, hypoxia, leukocytosis, lymphopenia), sepsis due to COVID-19 pneumonia: Magnesium and liver chemistry ordered. Inflammatory markers including lactic acid and procalcitonin ordered. ID consult. Patient is started on Decadron and continued. IV remdesivir restarted. 3. Metastatic breast cancer with bilateral recurrent pleural effusion, mediastinal adenopathy with diffuse body wall edema of the chest bilateral upper extremity, bilateral axillary lymphadenopathy: Patient follows Dr. Amador. She had last radiotherapy in 2016. Currently on chemotherapy exact chemotherapy regimen, natural history of breast cancer unclear. 4. DVT of left upper extremity, diagnosed in July 2020: Patient had been on Lovenox for more than 2 months and recently changed to Eliquis. Home medication he states Eliquis 5 mg daily, reason unclear. Started on Eliquis 5 mg twice daily. Discontinue if platelet count drops less than 50,000 or hemoglobin less than 8 g% 5. Hypertension: Blood pressure controlled, home medications continued with dose adjustment as needed was accelerated junctional rhythm at 114 bpm with hard to discern P waves. Frequent PVCs. QTC 407 ms. QRS 62 ms. Living will/advanced directive/end of life care: Patient has living will/advanced directive but partly scanned into her system. As per patient, her is power of ip technology transactions attorney for health. After discussion of benefits/risks procedures involved with full code, DNR CC arrest and DNR CC, the patient opted for full code and wanted to discuss further with her situation arises for intubation. At present, patient does want artificial life support including intubation, tube feed, ventilator and/chest compression, central venous catheter, vasopressor and DC shock if needed Total time spent in [id number] encounter in discussion of advanced directive 16 minutes. Inpatient E&M: 14737 Init Hosp L3 Procedures: 98841 Advncd Care Plan 30 Min
[2020-09-30] MEDS: HYDROmorphone 0.5 MG/0.5 ML SYRINGE IV (11:20)
[2020-09-30] MEDS: proCHLORPERazine 10 MG/2 ML Vial 5 MG IV (11:21)
[2020-09-30 12:17] LABS: CPK Total, Creatine Kinase 66 U/L (26-192); LDH 383 U/L (84-246); Magnesium 2.3 mg/dL (1.6-2.6)
[2020-09-30 13:15] LABS: AST(SGOT) 50 U/L (15-37); Alanine Aminotransfer ALT/SGPT 23 U/L (13-56); Albumin, Serum 2.4 g/dL (3.2-5.0); Alkaline Phosphatase 198 U/L (45-117); Bilirubin, Direct 0.13 mg/dL (0.00-0.30); Globulin 3.8 g/dL (2.2-4.2); Protein, Total 6.2 g/dL (6.4-8.2)
[2020-09-30] MEDS: Gabapentin 300 MG Capsule PO ×2 (13:42→20:07)
[2020-09-30] MEDS: busPIRone 5 MG Tablet 10 MG PO ×2 (13:42→20:07)
[2020-09-30 13:49] LABS: M R Staph aureus DNA By PCR Negative (Negative); Probe Check PASS; Specimen Processing Control PASS
[2020-09-30 16:13] LABS: Fibrinogen 371 mg/dl (203-444); International Normalized Ratio 1.6; Prothrombin Time (Protime)PT. 18.6 SECONDS (11.7-14.9)
[2020-09-30 16:29] LABS: D-Dimer Quantitative (DVT/PE) 9.94 FEU/ug/m (0.27-0.49)
[2020-09-30 16:41] LABS: Procalcitonin 0.38 ng/mL (0.00-0.09)
[2020-09-30 16:45] LABS: Lactic Acid 3.6 mmol/L (0.4-1.9)
[2020-09-30] MEDS: Furosemide 40 MG/4 ML Vial IV ×2 (17:52→20:10)
[2020-09-30 17:56] LABS: Bacteria 0 SEEN /hpf (None Seen); Mucous, Urine 0 SEEN /hpf (<or=2+); Squamous Epithelial Cells - UA 0 SEEN /hpf (5-10)
[2020-09-30 18:14] LABS: Color, Urine Yellow (Yellow); Glucose, Dipstick Normal (Normal); Ketone-Dipstick 5 mg/dl (Negative); Leukocyte Esterase-Dipstick 25 /ul (Negative); Nitrite-Dipstick Negative (Negative); Occult Blood-Urine 25 /ul (Negative); Protein-Dipstick 15 mg/dl (Negative); Specific Gravity, Urine 1.015 (1.002-1.030); Urine Bilirubin Dipstick Negative (Negative); Urine Clarity Clear (Clear); Urine Urobilinogen Normal (Normal)
[2020-09-30 18:27] LABS: Hyaline Cast 0-5 SEEN /lpf (0-5)
[2020-09-30 18:28] LABS: White Blood Cells 0-5 SEEN /hpf (0-5)
[2020-09-30 18:29] LABS: Red Blood Cells-Urine 0-5 SEEN /hpf (0-5)
[2020-09-30 18:31] LABS: Renal Epithelial Cells 0-5 SEEN /hpf (0-5)
[2020-09-30 19:51] LABS: Reflex Lactate? Y
--- NOTE | 2020-09-30 20:16 | EKG12_ITS ---
Test Reason : INCREASED HR Blood Pressure : / mmHG Vent. Rate : 176 BPM Atrial Rate : 174 BPM P-R Int : 000 ms QRS Dur : 068 ms QT Int : 256 ms P-R-T Axes : 000 031 039 degrees QTc Int : 438 ms Atrial fibrillation Low voltage QRS Abnormal ECG When compared with ECG of 30-SEP-2020 08:20, MANUAL COMPARISON REQUIRED, DATA IS UNCONFIRMED Confirmed by KARLIE SANTANA, JUNAID ([id number]), assistant film editor NICK SEGAL ([id number]) on 10/03/2020 10:16:28 AM Referred By: RAN Confirmed By:JUNAID ZIEGLER MD
--- NOTE | 2020-09-30 20:21 | ECHOD_ITS ---
Version 2 Reason For Study: Afib/Flutter Procedure This was a 2D Doppler, Color Flow transthoracic echocardiogram. Techncially difficult study. Patient sitting upright due to severe SOB. Consider doing full echo when no longer Covid Positive. Exam performed portable in ICU/CCU. The exam was abbreviated due to the COVID 19 protocol. Left Ventricle Normal LV size. Mild concentric left ventricular hypertrophy. Left ventricular systolic function is normal. The estimated ejection fraction is 65 %. No regional wall motion abnormalities noted. Right Ventricle Normal RV size. Normal systolic function. Mitral Valve Normal mitral valve. Tricuspid Valve Normal tricuspid valve. Mild to moderate (1-2+) tricuspid valve insufficiency. Pulmonary artery systolic pressure is 36 mmHg. Great Vessels Normal aortic root. Pericardium/Pleural Small pericardial effusion. Small left pleural effusion. MMode/2D Measurements & Calculations LVIDd: 4.4 cm IVSd: 1.4 cm LVIDs: 3.2 cm LVPWd: 1.6 cm FS: 25.8 % Doppler Measurements & Calculations PA V2 max: 107.9 cm/sec PI end-d pramod: 124.2 cm/sec TR max pramod: 290.4 cm/sec TR max P.7 mmHg Interpretation Summary Normal LV size. Left ventricular systolic function is normal. The estimated ejection fraction is 65 %. Mild concentric left ventricular hypertrophy. Small pericardial effusion. Ordering Physician: Elda Wood Referring Physician: Amador Oropeza Performed By: Jesu Snider RCS
[2020-09-30] MEDS: dilTIAZem 25 MG/5 ML Vial 10 MG IV BOLUS (20:37)
[2020-09-30 21:13] LABS: Lactic Acid 2.3 mmol/L (0.4-1.9)
[2020-09-30] MEDS: Enoxaparin 100 MG/ML Syringe 90 MG SC (21:14)
[2020-09-30] MEDS: Amiodarone 360 MG in Dextrose 5% Viaflo Bag 192.8 ML 33.3 MG CONT INF (21:14)
[2020-09-30 22:04] LABS: Thyroid Stim Hormone (TSH) 3.83 uIU/mL (0.358-3.74)
[2020-09-30] MEDS: Digoxin 250 MCG/ML Ampul IV (22:40)
[2020-09-30] MEDS: HYDROmorphone 1 MG/ML Syringe IV (22:40)
--- NOTE | 2020-09-30 23:02 | PCM.HOSP.N ---
Hospitalist Note Patient with recurrent atrial fibrillation with RVR, given amnio bolus in the ED. Will trial Cardizem x1 and initiate amiodarone continued infusion. Patient had only improved to 160 following these interventions therefore trialed digoxin 250x1 and immediately following patient had onset of PVCs and return to sinus rhythm. We will continue to closely monitor.
[2020-10-01] VITALS (43 sets, daily range): BP systolic 78–128; BP diastolic 32–89; PULSE 78–103; RESP 11–30; TEMP 36.3–37.1; O2SAT 88–100; BMI 32.7
[2020-10-01] MEDS: Amiodarone 360 MG in Dextrose 5% Viaflo Bag 192.8 ML 16.7 MG CONT INF (02:25)
[2020-10-01 02:44] LABS: Hematocrit 39.7 % (37-47); Hemoglobin 12.3 g/dL (12.0-15.0); Mean Corpuscular Hgb 30.3 pg (27.0-32.0); Mean Corpuscular Volume 97.8 fL (81-99); Mean Platelet Vol. 10.2 fl (6.2-12.0); POSITIVE COUNT YES; POSITIVE DIFFERENTIAL YES; POSITIVE MORPHOLOGY YES; Platelet Count 213 K/mm3 (150-450); RBC Distribution Width CV 17.7 % (11.6-14.6); Red Blood Count 4.06 M/mm3 (4.2-5.4)
[2020-10-01 02:48] LABS: Differential Indicated MANUAL DIFF; White Blood Count 38.9 K/mm3 (4.4-11.0)
[2020-10-01 03:03] LABS: ALB/GLOB Ratio 0.7 RATIO (0.9-2.4); AST(SGOT) 88 U/L (15-37); Alanine Aminotransfer ALT/SGPT 42 U/L (13-56); Albumin, Serum 2.2 g/dL (3.2-5.0); Alkaline Phosphatase 188 U/L (45-117); Anion Gap 8 (5-15); BUN 39 mg/dL (7-18); Calcium,Total 8.1 mg/dL (8.5-10.1); Chloride 105 mmol/L (98-107); Creatinine, Serum 1.86 mg/dL (0.55-1.02); EST Glomerular Filtration Rate 28 mL/min (>60); Est Glom Filt Rate - Afr Amer 34 mL/min (>60); Estimated Creatinine Clearance 20.83 ml/min; Globulin 3.3 g/dL (2.2-4.2); Glucose 139 mg/dL (74-106); Magnesium 2.9 mg/dL (1.6-2.6); Potassium 5.1 mmol/L (3.5-5.1); Protein, Total 5.5 g/dL (6.4-8.2); Sodium Level 140 mmol/L (136-145)
[2020-10-01 03:19] LABS: Neutrophil-Band 12 % (0-5); Neutrophil-Segmented 76 % (47-70); Total Cells Counted 100 (MANUAL DIFF)
[2020-10-01 03:20] LABS: Absolute Lymphocyte Count 1.16 X10^3/uL (0.83-4.51); Absolute Neutrophil Count 34.2 X10^3/uL (2.0-7.7); Lymphocyte 3 % (19-41); Metamyelocyte 2 % (0-1); Monocyte 5 % (0-10); Myelocyte 2 (0-0); Platelet Estimate ADEQUATE (ADEQ)
[2020-10-01 03:21] LABS: Red Cell Morphology NORM C+C NORMAL (NORM C&C)
[2020-10-01] MEDS: HYDROmorphone 1 MG/ML Syringe IV (03:54)
[2020-10-01] MEDS: Ondansetron 4 MG/2 ML Vial 8 MG IV (04:02)
[2020-10-01] MEDS: busPIRone 5 MG Tablet 10 MG PO ×2 (05:33→20:54)
--- NOTE | 2020-10-01 05:55 | EKG12_ITS ---
Test Reason : AM EKG Blood Pressure : / mmHG Vent. Rate : 089 BPM Atrial Rate : 089 BPM P-R Int : 138 ms QRS Dur : 068 ms QT Int : 352 ms P-R-T Axes : 050 009 001 degrees QTc Int : 428 ms Normal sinus rhythm Low voltage QRS Borderline ECG When compared with ECG of 30-SEP-2020 20:16, MANUAL COMPARISON REQUIRED, DATA IS UNCONFIRMED Confirmed by KARLIE SANTANA, JUNAID ([id number]), editorial assistant AIDA DOMINIQUE ([id number]) on 10/02/2020 8:51:07 AM Referred By: CHRISTIANO Confirmed By:JUNAID ZIEGLER MD
--- NOTE | 2020-10-01 07:19 | PCM.CON.CC ---
Problem List (1) Nausea and vomiting Status: Acute Qualifiers: Vomiting type: unspecified Vomiting Intractability: unspecified Qualified Code(s): R11.2 - Nausea with vomiting, unspecified (2) Metastatic malignant neoplasm to breast Status: Chronic (3) Respiratory failure with hypoxia Status: Acute (4) COVID-19 Status: Acute (5) Pleural effusion Status: Acute (6) DVT (deep venous thrombosis) Status: Acute (7) Hypertension Status: Chronic (8) Chronic bilateral pleural effusions Status: Acute Reason for Consult Date of Consultation: 10/01/20 Reason for Consultation: Hypoxic respiratory failure History of Present Illness: The patient is an 80 year old F, with past medical history listed below, who presented to [facility] on 09/30/2020 secondary to progressive chest pain and shortness of breath. Patient reportedly has a history of metastatic breast cancer is currently undergoing treatments. Patient is monitored by Dr. Amador and reportedly has had multiple thoracenteses recently secondary recurrent malignant pleural effusions. Patient had reported severe right-sided chest pain that radiated to the shoulder. Patient was unable to give any exacerbating symptoms. Patient denied any fever or hemoptysis, but is on Eliquis secondary to a left upper extremity DVT. Patient reportedly had also been exposed to a family member that tested positive for coronavirus, but she had denied any fevers. On presentation to the ER, patient was noted to be 85% saturation with tachycardia 117 bpm. ER staff reported diminished breath sounds and a CTA of the chest showed no PE, but large bilateral pleural effusions with chest wall inflammation. Laboratory data showed a leukocytosis of 38.1 with a platelet count of 218. Initial chemistry was unremarkable and troponin was within normal range at 0.39. An ABG was obtained showing adequate ventilation, but significantly elevated AA gradient. Patient was admitted to the intensive care unit, given 6 mg of Decadron and placed on BiPAP therapy. Overnight, patient did have nausea and emesis was unable to tolerate Airvo. Patient currently is on 6 L nasal cannula and doing okay. Patient reports she feels subjectively improved compared to previous, but is still having significant chest discomfort. Family was reportedly talked to and patient remains a full code. Patient states that she is currently thirsty, but is not reporting any nausea or vomiting at this time. Reportedly, patient had had a discussion about a Pleurx catheter as an outpatient and is willing to proceed with this during the hospital stay if it will improve her condition. Patient reportedly also had A. fib with RVR overnight. Patient was given amiodarone with no response. Patient did receive a dose of digoxin and is currently in sinus rhythm. Patient is unaware of any previous history of A. fib with RVR Patient relatively resistant to a full review of systems, but review of systems otherwise negative from a constitutional, HEENT, respiratory, cardiovascular, GI, genitourinary, musculoskeletal, skin, neurologic, psychiatric and hematologic system unless stated above. Past Medical History Past Medical History (Chronic Problems): Chronic Problems Metastatic malignant neoplasm to breast (Chronic) Hypertension (Chronic) Allergies cephalexin [From Keflex] Allergy (Verified 09/30/20 08:11) Rash oxycodone Adverse Reaction (Verified 09/30/20 08:11) Vomiting Home Medications: Ambulatory Orders Medication Instructions Recorded Acetaminophen [Tylenol] 500 mg PO Q4H PRN PRN 09/09/20 Amlodipine [Norvasc] 5 mg PO DAILY 09/09/20 Gabapentin [Neurontin] 300 mg PO TID 09/09/20 Hydrochlorothiazide [Hctz] 25 mg PO DAILY 09/09/20 Losartan Potassium 50 mg PO DAILY 09/09/20 Magnesium Oxide 500 mg PO DAILY 09/09/20 Omeprazole [Prilosec] 20 mg PO DAILY 09/09/20 Ondansetron [Zofran] 8 mg PO Q8H PRN PRN 09/09/20 Vit C/E/Zn/Coppr/Lutein/Zeaxan 2 tab PO DAILY 09/09/20 [Preservision Areds 2 Softgel] Potassium Chloride [K-Dur] 20 meq PO BIDCM #30 tab 09/11/20 Apixaban [Eliquis] 5 mg PO DAILY 09/27/20 Surgical History: appendectomy, cataract, cholecystectomy, hysterectomy, - - Double mastectomy Psychiatric History: No pertinent psych hx [employer] C[employer]TER History: No pertinent [employer]S C[employer]TER history Lives: Spouse/ Significant Other Smoking Status: Never smoker Alcohol: None Drugs: None - *Family History Maternal History Items: Heart Disease Paternal History Items: - - Alcoholism Review of Systems Comment: See HPI Patient Problems: Active and Suspected Problems Respiratory failure with hypoxia (Acute) COVID-19 (Acute) Pleural effusion (Acute) Acute hypoxemic respiratory failure due to COVID-19 (Acute) DVT (deep venous thrombosis) (Acute) Chronic bilateral pleural effusions (Acute) Objective: CTA of the chest was personally reviewed. Agree with formal interpretation. Patient does not have any echocardiogram or pulmonary function test available for review. Patient did recently have cytology from a pleural effusion showing breast cancer. - Physical Exam Vitals/I&O's: Vital Signs Temp Pulse Resp BP Pulse Ox 37.1 C 88 17 97/57 L 91 10/01/20 00:00 10/01/20 06:00 10/01/20 06:00 10/01/20 06:00 10/01/20 06:55 Oxygen Flow Rate (L/min) 6 Oxygen Delivery Method Nasal Cannula Weight: 88.9 kg Body Mass Index (BMI) 32.7 Intake and Output for Last 24 Hours 09/29/20 09/30/20 10/01/20 23:59 23:59 23:59 Intake Total 473 / 473 173.16 / 173.16 Output Total 700 / 700 50 / 50 Balance -227 / -227 123.16 / 123.16 General: Alert, Oriented x3, Cooperative - Intermittently, - - Mild to moderate discomfort. Obese HEENT: Atraumatic, PERRLA, EOMI, - - No scleral icterus or injection noted Oral: No Gingival or Mucosal Lesions/ Ulcerations, Dry Mucosa Neck: Supple, No JVD, No Nodes, Trachea Midline Lungs: No rhonchi, No wheeze, No rales, Diminished, - - Dullness to percussion bilaterally, left greater than right Cardiovascular: Regular rate, Regular Rhythm, Normal S1, Normal S2, No murmurs, No rub noted, No Gallop Abdomen: Bowel Sounds Present, Soft, Non Tender, Non-Distended, Obese Extremities: No clubbing, No cyanosis, No edema Skin: No rashes, No breakdown Musculoskeletal: No Tenderness to Palpation of Joints or Extremities Lymphatic: No Cervical, Supraclavicular, or Inguinal Adenopathy Neurological: Cranial nerves II-XII grossly intact, Neuro grossly intact, Motor Exam 5/5 strength throughout Psych/Mental Status: Anxious, Impulsive, Restless Microbiology Past 72 Hours 09/30/20 17:45 Urine, Clean Catch Legionella Antigen - Final 09/30/20 17:45 Urine, Clean Catch Streptococcus pneumoniae Antigen (M - Final 09/30/20 11:35 Mucosa - Nasopharyngeal Respiratory Panel (PCR) - Final 09/30/20 08:22 Mucosa - Nose SARS-CoV-2 Antigen (Rapid) - Final SARS-CoV-2 (COVID 19) Laboratory Results 09/30/20 08:12: WBC 38.1 H*, RBC 4.77, Hgb 14.4, Hct 46.6, MCV 97.7, MCH 30.2, MCHC 30.9 L, RDW Std Deviation 62.6 H, RDW Coeff of Katelyn 17.7 H, Plt Count 218, MPV 9.9, Immature Gran % (Auto) BIOCHEMISTRY TEACHER, Neut % (Auto) BIOCHEMISTRY TEACHER, Lymph % (Auto) BIOCHEMISTRY TEACHER, Elbert % (Auto) BIOCHEMISTRY TEACHER, Eos % (Auto) BIOCHEMISTRY TEACHER, Baso % (Auto) BIOCHEMISTRY TEACHER, Absolute Neuts (auto) 31.6 H, Absolute Lymphs (auto) 2.66, Total Counted 100, Neutrophils % (Manual) 79 H, Band Neutrophils % 4, Lymphocytes % (Manual) 7 L, Monocytes % (Manual) 9, Metamyelocytes % 1, Nucleated RBC % 0.4, Diff Path Review May foll, Dohle Bodies 1+, Platelet Estimate ADEQUATE, RBC Morphology NORM C+C 09/30/20 08:12: Sodium 138, Potassium 4.1, Chloride 102, Carbon Dioxide 27.0, Anion Gap 9, BUN 27 H, Creatinine 0.98, Estim Creat Clear Calc 39.54, Est GFR (MDRD) Af Amer 70, Est GFR (MDRD) Non-Af 58 L, BUN/Creatinine Ratio 27.4 H, Glucose 140 H, Calcium 8.2 L, Troponin I 0.039 09/30/20 08:12: APTT Cancelled 09/30/20 08:12: Lactate Dehydrogenase 383 H, Total Creatine Kinase 66, C-React Prot Ext Range 33.80 H 09/30/20 08:12: B-Natriuretic Peptide 53.0 09/30/20 08:12: Magnesium 2.3 09/30/20 08:12: Total Bilirubin 0.30, Direct Bilirubin 0.13, AST 50 H, ALT 23, Alkaline Phosphatase 198 H, Total Protein 6.2 L, Albumin 2.4 L, Globulin 3.8 09/30/20 09:20: Specimen Type ART, Sample Site R Radial, pH 7.36, Bicarbonate Actual 24.0, Total CO2 25, Base Excess -1, O2 Saturation 92 L, ABG pCO2 42.4, ABG pO2 65 L, Stu Test Positive, O2 Delivery Device NRB, Liter Flow 15.0 09/30/20 11:31: MRSA (PCR) Negative 09/30/20 15:41: PT 18.6 H, INR 1.6, Fibrinogen 371, D-Dimer Quant (PE/DVT) 9.94 H* 09/30/20 15:41: Lactic Acid 3.6 H* 09/30/20 15:41: Procalcitonin 0.38 H 09/30/20 15:41: TSH 3.83 H 09/30/20 17:45: Urine Color Yellow, Urine Clarity Clear, Urine pH 5.0, Ur Specific [place] 1.015, Urine Protein 15 H, Urine Glucose (UA) Normal, Urine Ketones 5 H, Urine Occult Blood 25 H, Urine Nitrite Negative, Urine Bilirubin Negative, Urine Urobilinogen Normal, Ur Leukocyte Esterase 25 H, Urine RBC 0-5 SEEN, Urine WBC 0-5 SEEN, Ur Squamous Epith Cells 0 SEEN, Ur Renal Epithelial Cell 0-5 SEEN, Urine Bacteria 0 SEEN, Hyaline Casts 0-5 SEEN, Urine Mucus 0 SEEN 09/30/20 20:15: Lactic Acid 2.3 H* 09/30/20 22:50: Troponin I 0.083 H 10/01/20 02:30: WBC 38.9 H*, RBC 4.06 L, Hgb 12.3, Hct 39.7, MCV 97.8, MCH 30.3, MCHC 31.0 L, RDW Std Deviation 63.0 H, RDW Coeff of Katelyn 17.7 H, Plt Count 213, MPV 10.2, Neut % (Auto) Not Reportable, Absolute Neuts (auto) 34.2 H, Absolute Lymphs (auto) 1.16, Total Counted 100, Neutrophils % (Manual) 76 H, Band Neutrophils % 12 H, Lymphocytes % (Manual) 3 L, Monocytes % (Manual) 5, Metamyelocytes % 2 H, Myelocytes % 2 H, Diff Path Review May foll, Platelet Estimate ADEQUATE, RBC Morphology NORM C+C 10/01/20 02:30: Sodium 140, Potassium 5.1, Chloride 105, Carbon Dioxide 27.0, Anion Gap 8, BUN 39 H, Creatinine 1.86 H, Estim Creat Clear Calc 20.83, Est GFR (MDRD) Af Amer 34 L, Est GFR (MDRD) Non-Af 28 L, BUN/Creatinine Ratio 21.0 H, Glucose 139 H, Calcium 8.1 L, Magnesium 2.9 H, Total Bilirubin 0.30, AST 88 H, ALT 42, Alkaline Phosphatase 188 H, Total Protein 5.5 L, Albumin 2.2 L, Globulin 3.3, Albumin/Globulin Ratio 0.7 L 10/01/20 02:30: Troponin I 0.102 H 10/01/20 05:35: Troponin I 0.106 H Current Medications Acetaminophen (Acetaminophen 325 Mg Tablet) 650 mg PO Q6H PRN PRN PRN Reason: Pain Score 1-10/Temp > 100.7 F Al Hydroxide/Mg Hydroxide (Mag Hydrox/Al Hydrox/Simeth 30 Ml Udc) 30 ml PO Q6H PRN PRN PRN Reason: Gastric Burning Albuterol Sulfate (Albuterol 2.5 Mg/3 Ml Vial.Neb.) 2.5 mg INHALATION Q2H PRN PRN PRN Reason: SOB/Wheezing Amlodipine Besylate (Amlodipine 5 Mg Tablet) 5 mg PO DAILY [facility] Aspirin (Aspirin 81 Mg Tab.Chew) 81 mg PO DAILY@0800 [facility] Buspirone HCl (Buspirone 5 Mg Tablet) 10 mg PO TID [facility] Last Admin: 10/01/20 05:33 Dose: 10 mg Documented by: Dexamethasone Sodium Phosphate (Dexamethasone 10 Mg/Ml Vial) 6 mg IV DAILY [facility] Enoxaparin Sodium (Enoxaparin 100 Mg/Ml Syringe) 90 mg SC Q12@0600,1800 [facility] Last Admin: 10/01/20 06:05 Dose: Not Given Documented by: Gabapentin (Gabapentin 300 Mg Capsule) 300 mg PO TIDPC [facility] Last Admin: 09/30/20 20:07 Dose: 300 mg Documented by: Hydrochlorothiazide (Hydrochlorothiazide 25 Mg Tablet) 25 mg PO DAILY [facility] Hydromorphone HCl (Hydromorphone 1 Mg/Ml Syringe) 1 mg IV Q4H PRN PRN PRN Reason: Pain Score 6-10 Last Admin: 10/01/20 03:54 Dose: 1 mg Documented by: Remdesivir 100 mg/ Sodium (Chloride) 250 mls @ 125 mls/hr IV DAILY [facility] Stop: 10/04/20 11:59 Amiodarone HCl 360 mg/ (Dextrose) 200 mls @ 16.667 mls/hr CONT INF .Q12H [facility] Stop: 10/01/20 20:29 Last Admin: 10/01/20 02:25 Dose: 0.5 mg/min, 16.7 mls/hr Documented by: Losartan Potassium (Losartan Potassium 50 Mg Tablet) 50 mg PO DAILY [facility] Magnesium Chloride (Magnesium Chloride 64 Mg Delay Rel.Tablet) 128 mg PO DAILY [facility] Melatonin (Melatonin 3 Mg Tablet) 3 mg PO QHS PRN PRN PRN Reason: INSOMNIA Ondansetron HCl (Ondansetron 4 Mg/2 Ml Vial) 8 mg IV Q8H PRN PRN PRN Reason: NAUSEA/VOMITING Last Admin: 10/01/20 04:02 Dose: 8 mg Documented by: Pantoprazole Sodium (Pantoprazole Sodium 20 Mg Tablet) 20 mg PO DAILY [facility] Potassium Chloride (Potassium Chloride 20 Meq Tablet) 20 meq PO BIDPC [facility] Last Admin: 09/30/20 20:07 Dose: 20 meq Documented by: Prochlorperazine Edisylate (Prochlorperazine 10 Mg/2 Ml Vial) 5 mg IV Q4H PRN PRN PRN Reason: Breakthrough Nausea/Vomiting Last Admin: 09/30/20 11:21 Dose: 5 mg Documented by: Senna/Docusate Sodium (Senna/Docusate Sodium 1 Tablet) 2 tablet PO BID PRN PRN PRN Reason: Constipation Clinical Impression(s) from Imaging Studies Chest CTA 09/30/20 08:05 IMPRESSION: Persistent, Diffuse body wall edema skin thickening ill-defined and thickened appearance of the breast tissue pectoralis muscle with and associated skin thickening. Recommend correlation with any recent radiation therapy. There are abnormal bilateral axillary lymph nodes more defined on the right than the left. Findings are concerning for the possibility of a congested or possible infiltrated appearance of the left axilla. Recommend consideration for ultrasound of the bilateral upper extremities if appropriate which can cause chest wall congestion and edema. There are persistent areas of sclerotic density within the posterior ribs which may be associated with possible radiation versus metastatic disease. There are large persistent bilateral effusions with atelectasis. There is persistent crowding of the mediastinum and chest with a thick-walled appearance of the periphery of the mediastinum with reactive enlarge lymphadenopathy highly suspicious for metastatic disease. Recommend consideration for bone scan. The study is limited for the evaluation for pulmonary embolism.. There is note visualized centrally located pulmonary embolism. Electronically Signed: Shania Gardner MD at 8:58 EST Tel , Service support , Assessment/Plan Active and Suspected Problems Respiratory failure with hypoxia (Acute) COVID-19 (Acute) Pleural effusion (Acute) Acute hypoxemic respiratory failure due to COVID-19 (Acute) DVT (deep venous thrombosis) (Acute) Chronic bilateral pleural effusions (Acute) RECOMMENDATIONS: 1. Hold morning anticoagulation pending surgery eval 2. Pleurx catheter per surgery 3. Hold on additional diuretic therapy 4. Wean oxygen as tolerated 5. Okay to proceed with remdesivir and Decadron from my perspective IMPRESSIONS: 1. Acute hypoxic respiratory failure with recurrent bilateral pleural effusions, COVID-19 and associated atelectasis Patient with significant hypoxia on presentation. Patient did receive diuretic therapy with some improvement in oxygenation, but also had significant renal dysfunction. Patient has been placed on Decadron and remdesivir. Likely okay to continue with remdesivir and hold further diuretic therapy. Defer to factious disease. Will hold anticoagulation this morning as patient may require surgical intervention. 2. Recurrent bilateral pleural effusion secondary to metastatic breast cancer Patient recently with cytology positive for breast cancer with rapidly recurring pleural effusions. Pleurx catheter does appear to be an appropriate response. Surgery has been consulted. Defer to them on reinitiation of anticoagulation as patient does have a DVT of the upper extremity. This will help oxygenation to a point, but patient has other comorbid such as COVID-19 that will be slower to respond. 3. DVT of left upper extremity/metastatic breast cancer Oncology has been consulted. Patient reportedly is still a full code. Patient does have significant leukocytosis at this time, but patient reportedly is also received stimulation therapy. Will attempt to clarify the details. 4. Obesity/advanced age/hypertension/nausea and vomiting Complicates care, management, recovery and prognosis. Okay to continue with baseline medications for now. May need to hold antihypertensives pending clinical course. 5. New onset A. fib with RVR Patient currently on amiodarone therapy. Patient was able to cardiovert with digoxin therapy. Cardiology is not currently consulted. Defer to hospitalist. Would not be worried about long-term effects of amiodarone at this time given comorbidities. Inpatient E&M: 84112 Init Hosp L3
[2020-10-01] MEDS: dexAMETHasone 10 MG/ML Vial 6 MG IV (08:55)
[2020-10-01] MEDS: Acetaminophen 325 MG Tablet 650 MG PO ×2 (08:55→22:00)
[2020-10-01] MEDS: Losartan Potassium 50 MG Tablet PO (08:55)
[2020-10-01] MEDS: Gabapentin 300 MG Capsule PO ×2 (08:56→18:30)
[2020-10-01] MEDS: Aspirin 81 MG TAB.CHEW PO (08:56)
[2020-10-01] MEDS: Pantoprazole Sodium 20 MG Tablet PO (08:56)
[2020-10-01] MEDS: Senna/Docusate Sodium 1 Tablet 2 TABLET PO ×2 (08:56→21:59)
[2020-10-01] MEDS: amLODIPine 5 MG Tablet PO (08:56)
[2020-10-01] MEDS: Magnesium Chloride 64 MG Delay Rel.Tablet 128 MG PO (08:56)
[2020-10-01] MEDS: hydroCHLOROthiazide 25 MG Tablet PO (08:56)
--- NOTE | 2020-10-01 09:22 | CON.PCM_ITS ---
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 ?Triple negative disease. 2) Left-sided malignant pleural effusion. ? HPI:?The patient is an 80-year-old female with a PMH significant for HTN?and macular degeneration?who palpated a lump in her left breast in 2017. She had a 3-D mammogram on 12/10/2016 which revealed an area of increased density in the left breast superiorly. She underwent left breast ultrasound and was found to have a hyperechoic irregular mass at the 12:00 position measuring 4.9 x 3.2 x 6 cm. She underwent an ultrasound-guided biopsy on 01/01/2017. The pathology revealed invasive lobular carcinoma, grade 2, ER/W[place] positive and HER-2 negative. A bilateral breast MRI done on 01/12/2017 did not reveal any suspicious lesion or adenopathy on the right side. In the left breast there was significant background enhancement and motion artifact. There was an ill-defined mass in the upper inner quadrant measuring 5 x 4 x 5.5 cm and an additional mass like enhancement in the outer inferior quadrant measuring 5 x 2.5 x 4.5 cm. There w ere prominent benign appearing lymph nodes in the axillary tail. She underwent left-sided mastectomy with sentinel lymph node biopsy and prophylactic right mastectomy on 01/23/2017. ? Final pathology revealed within the left breast there was an invasive lobular carcinoma measuring 5.4 cm. Margins were negative (closest was 4 cm.12 lymph nodes were retrieved 7 were positive for metastatic disease with the largest focus 2.3 cm. Final stage was pT3 N3ac M0. ? Patient underwent a PET scan on 02/18/2017 evidently there was a FDG avid lymph node in the left axilla with an SUV of 4.7. There was no mediastinal adenopathy. ? She underwent further axillary dissection and was found to have 7 of 17 lymph nodes involved with disease. ? She received adjuvant chemotherapy with dose dense AC followed by planned 4 doses of Taxol. She received one dose of Taxol and then was switched to weekly schedule due to insomnia and symptoms of neuropathy. Evidently she stopped treatment after week 6. She completed adjuvant radiation 09/02/2017. ? Following that she was started on anastrozole and calcium supplement. She was last seen by her oncologist for follow-up in December 2019. She was LUCILA by exam. ? Bone density testing 12/2019 normal bone density lumbar spine and left hip. ? She was tolerating anastrozole well with no symptomatic side effect. ? Presents for ongoing oncologic management. ? Interim history: Was evaluated for left axilla mass earlier this month. ?Was found to have cutaneous lesions suspicious for metastatic recurrence. ?Refer to general surgery for biopsy. ? Pathology: A. Skin, left chest wall skin lesion, excision - Metastatic adenocarcinoma, see comment. ? B. Left chest wall mass needle core, biopsy - Metastatic adenocarcinoma, see c omment. COMMENT Sections reveal metastatic adenocarcinoma throughout the dermis, extending into the subcutaneous tissue. Special stains were performed and compared to the appropriate controls. The tumor cells stain positively for CK7 and GATA3. The patient's history of breast carcinoma is noted. Overall, these findings are compatible with metastatic breast carcinoma. Clinical correlation is essential. ? Estrogen Receptor (ER) ? ?Negative (0%) Progesterone Receptor (PgR) ? ?Negative (0%) HER2 (ERBB2) IMMUNOHISTOCHEMISTRY ASSAY Interpretation: NEGATIVE for HER2 (ERBB2) Expression Score: ? ?1+ ? She had CT scan of the abdomen pelvis on 07/25/2020 demonstrated mildly enlarged left inguinal nodes measuring up to 1.6 cm short axis. ?CT chest on the same day showed a left-sided small pleural effusion and pleural thickening with associated left lower lung atelectasis/infiltrates. ?There are a few enlarged right axillary lymph nodes and borderline enlarged mediastinal nodes. ?Remote granulomatous disease was also noted. ?There was chest wall soft tissue stranding and/or edema which was worse on the left side as well as anterior chest wall skin thickening noted. ?Scan did not suggest blastic osseous metastatic disease. ?And MRI of the brain demonstrated no evidence of intracranial metastatic disease. ?There was moderate microvascular ischemic change and minimal volume loss observed. ? Patient was started on carboplatin and gemcitabine. ?She had been having difficulty with nausea and malaise with the regimen. ?She required an office hydration. ?She was admitted to [facility] on 09/09/2020 for worsening nausea and vomiting. ?She developed worsening dyspnea with ongoing IV hydration. ?This was relieved after diuresis and undergoing ultrasound-guided le ft-sided thoracentesis. ?She had approximately 800 cc of lauren cover fluid removed. ? Pathology: DIAGNOSIS CYTOLOGY Thoracentesis fluid for cytology (cytospin and cell block): ?Positive for malignant cells consistent with non-small cell carcinoma. ?See comment. ? COMMENT Immunohistochemistry ([id number]) supports the above diagnosis and favors a breast primary.?? There was progression of disease while on carboplatin/gemcitabine. Consultation had been arranged with Dr. Matias for Pleurx catheter placement. Patient was started on atezolizumab last week. She was supposed to start Abraxane concurrently but was neutropenic so chemotherapy portion of the regimen was held and she received atezolizumab. Arrangements were made for a scheduled outpatient thoracentesis. However patient became markedly more short of breath and presented to the emergency room on 09/27. She underwent a 1 L left-sided thoracentesis with relief of her symptoms. Presented to the ED yesterday with worsening shortness of breath. Chest CT demonstrated left-sided pleural effusion as well as a new small right-sided pleural effusion. Patient also tested positive for Covid. She was admitted to the ICU. Currently on 6 L of oxygen with good saturation. Had an episode of RVR a fib last night. Past Medical History: Chronic Problems Metastatic malignant neoplasm to breast (Chronic) Hypertension (Chronic) Past Medical/Surgical History: Past Medical History - Most Recent Inpatient Visit Past Medical History Start: 09/30/20 10:24 Text: Status: Complete Freq: ONCE Protocol: Document 09/30/20 10:24 AR (Rec: 09/30/20 10:50 AR [id number]) BMI Required to complete PMH What is Patient's BMI 32.9 Past Medical History Unable History Recalled Yes Query Text:Pt Unable/Family Not Present Neurologic Medical History Hx Stroke/TIA No Hx Dementia/Alzheimer's No Hx Parkinson's Disease No Hx Seizures No Hx Multiple Sclerosis No Hx Migraines No Cardiac Medical History VTE Present on Admission Yes Hx of Deep Vein Thrombosis/VTE/PE Yes Hx Hypertension Yes Hx Chest Pain/Angina Yes Hx Heart Attack No Hx Cardiac Surgery/Stents/Etc. No Hx Heart Failure No Hx Pacemaker/AICD No Hx Irregular Heartbeat and/or Afib No Hx Anticoagulant Therapy Yes: lovenox/eliquis for dvt Query Text:(Coumadin, Aspirin, Plavix, in lue Xarelto, etc.) Hx Pain in Legs when Walking/Leg Cramps No Respiratory Medical History Hx COPD No Hx Emphysema No Hx Smoking No Smoking Status Never smoker Hx Tobacco Use in last 12 months No Hx Sleep Apnea No Do you snore loudly (louder than talking No or can be heard through closed doors)? Do you often feel tired/ fatigued/ No sleepy during daytime? Has anyone observed you stop breathing No during sleep? STOP Results Negative GI Medical History Hx Ulcer No Hx Hepatitis No Hx Cirrhosis No Hx GI Bleed No Hx Unplanned Weight Loss No Genitourinary Medical History Indwelling Catheter in Place on Arrival/ No Admission Hx Renal Disease No Hx Dialysis No Musculoskeletal History Hx Arthritis No Hx Rheumatoid Arthritis No Endocrine Medical History Hx Diabetes No Hx Thyroid Disease No Hematologic Medical History Hx of Blood Transfusion No Hx of Transfusion in last 3 Months No Ever experience any problems with No transfusion(s)? Hx of Preganancy in last 3 Months No Nurse Filling Out Transfusion & AROHDE Questions: Date: 09/30/20 Time: 10:48 Psycho/Social Medical History Hx Depression No Hx Anxiety No Hx Behavior Disorder No Hx Alcohol Use No Hx Substance Use No Other Medical History Hx Blood Disorders No Hx Cancer Yes: metastatic breast Hx Drug Resistant Organism No Wound/Pressure Injury Present on Arrival No /Admission Query Text:If yes, chart assessment in Shift/Clinical Findings Central Line/PICC/VAD Present on Arrival No /Admission Risk for Readmission Number of Risk Factors 1 At Risk for Readmission Patient is Not at Risk Patient is eligible for Call Back N Maternal Family History: Heart Disease Paternal Family History: - - Alcoholism - Social History Lives: Spouse/ Significant Other Smoking Status: Never smoker Alcohol: None Drugs: None Allergies/Adverse Reactions: Allergy/AdvReac Type Severity Reaction Status Date / Time cephalexin [From Keflex] Allergy Rash Verified 09/30/20 08:11 oxycodone AdvReac Vomiting Verified 09/30/20 08:11 Vital Signs Temperature 98.8 F 10/01/20 00:00 Temperature Source Temporal 10/01/20 00:00 Pulse Rate 88 10/01/20 06:00 Respiratory Rate 17 10/01/20 06:00 Respiratory Effort Short of Breath 10/01/20 04:00 Respiratory Depth Normal 10/01/20 00:00 Respiratory Pattern Tachypnea 10/01/20 03:16 Blood Pressure 97/57 L 10/01/20 06:00 Blood Pressure Mean 70 10/01/20 06:00 Blood Pressure Source Monitor 10/01/20 06:00 Blood Pressure Position Semi-Fowlers 10/01/20 06:00 Blood Pressure Location Right Leg 10/01/20 06:00 Pulse Ox 91 10/01/20 06:55 Oxygen Delivery Method Nasal Cannula 10/01/20 06:55 Oxygen Flow Rate (L/min) 6 10/01/20 06:55 Fraction of Inspired Oxygen (FIO2) 80 10/01/20 03:17 - Physical Exam General: Confused Cardiac:: Regular rhythm Abdomen:: Non-distended Skin:: - - Confluent malignant anterior chest wall mass. There is also bilat eral adenopathy. Laboratory Data: Microbiology 09/30/20 17:45 Legionella Antigen - Final Urine, Clean Catch Streptococcus pneumoniae Antigen (M - Final 09/30/20 11:35 Respiratory Panel (PCR) - Final Mucosa - Nasopharyngeal 09/30/20 08:22 SARS-CoV-2 Antigen (Rapid) - Final Mucosa - Nose SARS-CoV-2 (COVID 19) Laboratory Tests 10/01/20 10/01/20 10/01/20 Range/Units 05:35 02:30 02:30 WBC (4.4-11.0) K/mm3 RBC (4.2-5.4) M/mm3 Hgb (12.0-15.0) g/dL Hct (37-47) % MCV (81-99) fL MCH (27.0-32.0) pg MCHC (32-36) g/dL RDW Std Deviation (35.1-43.9) fl RDW Coeff of Katelyn (11.6-14.6) % Plt Count (150-450) K/mm3 MPV (6.2-12.0) fl Neut % (Auto) Absolute Neuts (auto) (2.0-7.7) X10^3/uL Absolute Lymphs (auto) (0.83-4.51) X10^3/uL Total Counted (MANUAL DIFF) Neutrophils % (Manual) (47-70) % Band Neutrophils % (0-5) % Lymphocytes % (Manual) (19-41) % Monocytes % (Manual) (0-10) % Metamyelocytes % (0-1) % Myelocytes % (0-0) Diff Path Review Platelet Estimate (ADEQ) RBC Morphology (NORM C&C) NORMAL PT (11.7-14.9) SECONDS INR Fibrinogen (203-444) mg/dl D-Dimer Quant (PE/DVT) (0.27-0.49) FEU/ug/m Specimen Type Sample Site pH (7.35-7.45) Bicarbonate Actual (22-26) mmol/L Total CO2 mmol/L Base Excess (-2 to +2) mmol/L O2 Saturation (95-99) % ABG pCO2 (35-45) mmHg ABG pO2 (75-100) mmHG Stu Test O2 Delivery Device Liter Flow /min Sodium 140 (136-145) mmol/L Potassium 5.1 (3.5-5.1) mmol/L Chloride 105 (98-107) mmol/L Carbon Dioxide 27.0 (21.0-32.0) mmol/L Anion Gap 8 (5-15) BUN 39 H (7-18) mg/dL Creatinine 1.86 H (0.55-1.02) mg/dL Estim Creat Clear Calc 20.83 ml/min Est GFR (MDRD) Af Amer 34 L (>60) mL/min Est GFR (MDRD) Non-Af 28 L (>60) mL/min BUN/Creatinine Ratio 21.0 H (10-20) RATIO Glucose 139 H (74-106) mg/dL Lactic Acid (0.4-1.9) mmol/L Calcium 8.1 L (8.5-10.1) mg/dL Magnesium 2.9 H (1.6-2.6) mg/dL Total Bilirubin 0.30 (0.20-1.00) mg/dL Direct Bilirubin (0.00-0.30) mg/dL AST 88 H (15-37) U/L ALT 42 (13-56) U/L Alkaline Phosphatase 188 H (45-117) U/L Lactate Dehydrogenase (84-246) U/L Total Creatine Kinase (26-192) U/L Troponin I 0.106 H 0.102 H (<0.045) ng/mL C-React Prot Ext Range (0.0-3.0) mg/L B-Natriuretic Peptide (0-100) pg/mL Total Protein 5.5 L (6.4-8.2) g/dL Albumin 2.2 L (3.2-5.0) g/dL Globulin 3.3 (2.2-4.2) g/dL Albumin/Globulin Ratio 0.7 L (0.9-2.4) RATIO Procalcitonin (0.00-0.09) ng/mL TSH (0.358-3.74) uIU/mL Urine Color (Yellow) Urine Clarity (Clear) Urine pH (5.0 - 8.0) Ur Specific [place] (1.002-1.030) Urine Protein (Negative) mg/dl Urine Glucose (UA) (Normal) mg/dl Urine Ketones (Negative) mg/dl Urine Occult Blood (Negative) /ul Urine Nitrite (Negative) Urine Bilirubin (Negative) mg/dL Urine Urobilinogen (Normal) mg/dl Ur Leukocyte Esterase (Negative) /ul Urine RBC (0-5) /hpf Urine WBC (0-5) /hpf Ur Squamous Epith Cells (5-10) /hpf Ur Renal Epithelial Cell (0-5) /hpf Urine Bacteria (None Seen) /hpf Hyaline Casts (0-5) /lpf Urine Mucus (<or=2+) /hpf MRSA (PCR) (Negative) 10/01/20 09/30/20 09/30/20 Range/Units 02:30 22:50 20:15 WBC 38.9 H* (4.4-11.0) K/mm3 RBC 4.06 L (4.2-5.4) M/mm3 Hgb 12.3 (12.0-15.0) g/dL Hct 39.7 (37-47) % MCV 97.8 (81-99) fL MCH 30.3 (27.0-32.0) pg MCHC 31.0 L (32-36) g/dL RDW Std Deviation 63.0 H (35.1-43.9) fl RDW Coeff of Katelyn 17.7 H (11.6-14.6) % Plt Count 213 (150-450) K/mm3 MPV 10.2 (6.2-12.0) fl Neut % (Auto) Not Reportable Absolute Neuts (auto) 34.2 H (2.0-7.7) X10^3/uL Absolute Lymphs (auto) 1.16 (0.83-4.51) X10^3/uL Total Counted 100 (MANUAL DIFF) Neutrophils % (Manual) 76 H (47-70) % Band Neutrophils % 12 H (0-5) % Lymphocytes % (Manual) 3 L (19-41) % Monocytes % (Manual) 5 (0-10) % Metamyelocytes % 2 H (0-1) % Myelocytes % 2 H (0-0) Diff Path Review May foll Platelet Estimate ADEQUATE (ADEQ) RBC Morphology NORM C+C (NORM C&C) NORMAL PT (11.7-14.9) SECONDS INR Fibrinogen (203-444) mg/dl D-Dimer Quant (PE/DVT) (0.27-0.49) FEU/ug/m Specimen Type Sample Site pH (7.35-7.45) Bicarbonate Actual (22-26) mmol/L Total CO2 mmol/L Base Excess (-2 to +2) mmol/L O2 Saturation (95-99) % ABG pCO2 (35-45) mmHg ABG pO2 (75-100) mmHG Stu Test O2 Delivery Device Liter Flow /min Sodium (136-145) mmol/L Potassium (3.5-5.1) mmol/L Chloride (98-107) mmol/L Carbon Dioxide (21.0-32.0) mmol/L Anion Gap (5-15) BUN (7-18) mg/dL Creatinine (0.55-1.02) mg/dL Estim Creat Clear Calc ml/min Est GFR (MDRD) Af Amer (>60) mL/min Est GFR (MDRD) Non-Af (>60) mL/min BUN/Creatinine Ratio (10-20) RATIO Glucose (74-106) mg/dL Lactic Acid 2.3 H* (0.4-1.9) mmol/L Calcium (8.5-10.1) mg/dL Magnesium (1.6-2.6) mg/dL Total Bilirubin (0.20-1.00) mg/dL Direct Bilirubin (0.00-0.30) mg/dL AST (15-37) U/L ALT (13-56) U/L Alkaline Phosphatase (45-117) U/L Lactate Dehydrogenase (84-246) U/L Total Creatine Kinase (26-192) U/L Troponin I 0.083 H (<0.045) ng/mL C-React Prot Ext Range (0.0-3.0) mg/L B-Natriuretic Peptide (0-100) pg/mL Total Protein (6.4-8.2) g/dL Albumin (3.2-5.0) g/dL Globulin (2.2-4.2) g/dL Albumin/Globulin Ratio (0.9-2.4) RATIO Procalcitonin (0.00-0.09) ng/mL TSH (0.358-3.74) uIU/mL Urine Color (Yellow) Urine Clarity (Clear) Urine pH (5.0 - 8.0) Ur Specific [place] (1.002-1.030) Urine Protein (Negative) mg/dl Urine Glucose (UA) (Normal) mg/dl Urine Ketones (Negative) mg/dl Urine Occult Blood (Negative) /ul Urine Nitrite (Negative) Urine Bilirubin (Negative) mg/dL Urine Urobilinogen (Normal) mg/dl Ur Leukocyte Esterase (Negative) /ul Urine RBC (0-5) /hpf Urine WBC (0-5) /hpf Ur Squamous Epith Cells (5-10) /hpf Ur Renal Epithelial Cell (0-5) /hpf Urine Bacteria (None Seen) /hpf Hyaline Casts (0-5) /lpf Urine Mucus (<or=2+) /hpf MRSA (PCR) (Negative) 09/30/20 09/30/20 09/30/20 Range/Units 17:45 15:41 15:41 WBC (4.4-11.0) K/mm3 RBC (4.2-5.4) M/mm3 Hgb (12.0-15.0) g/dL Hct (37-47) % MCV (81-99) fL MCH (27.0-32.0) pg MCHC (32-36) g/dL RDW Std Deviation (35.1-43.9) fl RDW Coeff of Katelyn (11.6-14.6) % Plt Count (150-450) K/mm3 MPV (6.2-12.0) fl Neut % (Auto) Absolute Neuts (auto) (2.0-7.7) X10^3/uL Absolute Lymphs (auto) (0.83-4.51) X10^3/uL Total Counted (MANUAL DIFF) Neutrophils % (Manual) (47-70) % Band Neutrophils % (0-5) % Lymphocytes % (Manual) (19-41) % Monocytes % (Manual) (0-10) % Metamyelocytes % (0-1) % Myelocytes % (0-0) Diff Path Review Platelet Estimate (ADEQ) RBC Morphology (NORM C&C) NORMAL PT (11.7-14.9) SECONDS INR Fibrinogen (203-444) mg/dl D-Dimer Quant (PE/DVT) (0.27-0.49) FEU/ug/m Specimen Type Sample Site pH (7.35-7.45) Bicarbonate Actual (22-26) mmol/L Total CO2 mmol/L Base Excess (-2 to +2) mmol/L O2 Saturation (95-99) % ABG pCO2 (35-45) mmHg ABG pO2 (75-100) mmHG Stu Test O2 Delivery Device Liter Flow /min Sodium (136-145) mmol/L Potassium (3.5-5.1) mmol/L Chloride (98-107) mmol/L Carbon Dioxide (21.0-32.0) mmol/L Anion Gap (5-15) BUN (7-18) mg/dL Creatinine (0.55-1.02) mg/dL Estim Creat Clear Calc ml/min Est GFR (MDRD) Af Amer (>60) mL/min Est GFR (MDRD) Non-Af (>60) mL/min BUN/Creatinine Ratio (10-20) RATIO Glucose (74-106) mg/dL Lactic Acid (0.4-1.9) mmol/L Calcium (8.5-10.1) mg/dL Magnesium (1.6-2.6) mg/dL Total Bilirubin (0.20-1.00) mg/dL Direct Bilirubin (0.00-0.30) mg/dL AST (15-37) U/L ALT (13-56) U/L Alkaline Phosphatase (45-117) U/L Lactate Dehydrogenase (84-246) U/L Total Creatine Kinase (26-192) U/L Troponin I (<0.045) ng/mL C-React Prot Ext Range (0.0-3.0) mg/L B-Natriuretic Peptide (0-100) pg/mL Total Protein (6.4-8.2) g/dL Albumin (3.2-5.0) g/dL Globulin (2.2-4.2) g/dL Albumin/Globulin Ratio (0.9-2.4) RATIO Procalcitonin 0.38 H (0.00-0.09) ng/mL TSH 3.83 H (0.358-3.74) uIU/mL Urine Color Yellow (Yellow) Urine Clarity Clear (Clear) Urine pH 5.0 (5.0 - 8.0) Ur Specific [place] 1.015 (1.002-1.030) Urine Protein 15 H (Negative) mg/dl Urine Glucose (UA) Normal (Normal) mg/dl Urine Ketones 5 H (Negative) mg/dl Urine Occult Blood 25 H (Negative) /ul Urine Nitrite Negative (Negative) Urine Bilirubin Negative (Negative) mg/dL Urine Urobilinogen Normal (Normal) mg/dl Ur Leukocyte Esterase 25 H (Negative) /ul Urine RBC 0-5 SEEN (0-5) /hpf Urine WBC 0-5 SEEN (0-5) /hpf Ur Squamous Epith Cells 0 SEEN (5-10) /hpf Ur Renal Epithelial Cell 0-5 SEEN (0-5) /hpf Urine Bacteria 0 SEEN (None Seen) /hpf Hyaline Casts 0-5 SEEN (0-5) /lpf Urine Mucus 0 SEEN (<or=2+) /hpf MRSA (PCR) (Negative) 09/30/20 09/30/20 09/30/20 Range/Units 15:41 15:41 11:31 WBC (4.4-11.0) K/mm3 RBC (4.2-5.4) M/mm3 Hgb (12.0-15.0) g/dL Hct (37-47) % MCV (81-99) fL MCH (27.0-32.0) pg MCHC (32-36) g/dL RDW Std Deviation (35.1-43.9) fl RDW Coeff of Kateyln (11.6-14.6) % Plt Count (150-450) K/mm3 MPV (6.2-12.0) fl Neut % (Auto) Absolute Neuts (auto) (2.0-7.7) X10^3/uL Absolute Lymphs (auto) (0.83-4.51) X10^3/uL Total Counted (MANUAL DIFF) Neutrophils % (Manual) (47-70) % Band Neutrophils % (0-5) % Lymphocytes % (Manual) (19-41) % Monocytes % (Manual) (0-10) % Metamyelocytes % (0-1) % Myelocytes % (0-0) Diff Path Review Platelet Estimate (ADEQ) RBC Morphology (NORM C&C) NORMAL PT 18.6 H (11.7-14.9) SECONDS INR 1.6 Fibrinogen 371 (203-444) mg/dl D-Dimer Quant (PE/DVT) 9.94 H* (0.27-0.49) FEU/ug/m Specimen Type Sample Site pH (7.35-7.45) Bicarbonate Actual (22-26) mmol/L Total CO2 mmol/L Base Excess (-2 to +2) mmol/L O2 Saturation (95-99) % ABG pCO2 (35-45) mmHg ABG pO2 (75-100) mmHG Stu Test O2 Delivery Device Liter Flow /min Sodium (136-145) mmol/L Potassium (3.5-5.1) mmol/L Chloride (98-107) mmol/L Carbon Dioxide (21.0-32.0) mmol/L Anion Gap (5-15) BUN (7-18) mg/dL Creatinine (0.55-1.02) mg/dL Estim Creat Clear Calc ml/min Est GFR (MDRD) Af Amer (>60) mL/min Est GFR (MDRD) Non-Af (>60) mL/min BUN/Creatinine Ratio (10-20) RATIO Glucose (74-106) mg/dL Lactic Acid 3.6 H* (0.4-1.9) mmol/L Calcium (8.5-10.1) mg/dL Magnesium (1.6-2.6) mg/dL Total Bilirubin (0.20-1.00) mg/dL Direct Bilirubin (0.00-0.30) mg/dL AST (15-37) U/L ALT (13-56) U/L Alkaline Phosphatase (45-117) U/L Lactate Dehydrogenase (84-246) U/L Total Creatine Kinase (26-192) U/L Troponin I (<0.045) ng/mL C-React Prot Ext Range (0.0-3.0) mg/L B-Natriuretic Peptide (0-100) pg/mL Total Protein (6.4-8.2) g/dL Albumin (3.2-5.0) g/dL Globulin (2.2-4.2) g/dL Albumin/Globulin Ratio (0.9-2.4) RATIO Procalcitonin (0.00-0.09) ng/mL TSH (0.358-3.74) uIU/mL Urine Color (Yellow) Urine Clarity (Clear) Urine pH (5.0 - 8.0) Ur Specific [place] (1.002-1.030) Urine Protein (Negative) mg/dl Urine Glucose (UA) (Normal) mg/dl Urine Ketones (Negative) mg/dl Urine Occult Blood (Negative) /ul Urine Nitrite (Negative) Urine Bilirubin (Negative) mg/dL Urine Urobilinogen (Normal) mg/dl Ur Leukocyte Esterase (Negative) /ul Urine RBC (0-5) /hpf Urine WBC (0-5) /hpf Ur Squamous Epith Cells (5-10) /hpf Ur Renal Epithelial Cell (0-5) /hpf Urine Bacteria (None Seen) /hpf Hyaline Casts (0-5) /lpf Urine Mucus (<or=2+) /hpf MRSA (PCR) Negative (Negative) 09/30/20 09/30/20 09/30/20 Range/Units 09:20 08:12 08:12 WBC (4.4-11.0) K/mm3 RBC (4.2-5.4) M/mm3 Hgb (12.0-15.0) g/dL Hct (37-47) % MCV (81-99) fL MCH (27.0-32.0) pg MCHC (32-36) g/dL RDW Std Deviation (35.1-43.9) fl RDW Coeff of Katelyn (11.6-14.6) % Plt Count (150-450) K/mm3 MPV (6.2-12.0) fl Neut % (Auto) Absolute Neuts (auto) (2.0-7.7) X10^3/uL Absolute Lymphs (auto) (0.83-4.51) X10^3/uL Total Counted (MANUAL DIFF) Neutrophils % (Manual) (47-70) % Band Neutrophils % (0-5) % Lymphocytes % (Manual) (19-41) % Monocytes % (Manual) (0-10) % Metamyelocytes % (0-1) % Myelocytes % (0-0) Diff Path Review Platelet Estimate (ADEQ) RBC Morphology (NORM C&C) NORMAL PT (11.7-14.9) SECONDS INR Fibrinogen (203-444) mg/dl D-Dimer Quant (PE/DVT) (0.27-0.49) FEU/ug/m Specimen Type ART Sample Site R Radial pH 7.36 (7.35-7.45) Bicarbonate Actual 24.0 (22-26) mmol/L Total CO2 25 mmol/L Base Excess -1 (-2 to +2) mmol/L O2 Saturation 92 L (95-99) % ABG pCO2 42.4 (35-45) mmHg ABG pO2 65 L (75-100) mmHG Stu Test Positive O2 Delivery Device NRB Liter Flow 15.0 /min Sodium (136-145) mmol/L Potassium (3.5-5.1) mmol/L Chloride (98-107) mmol/L Carbon Dioxide (21.0-32.0) mmol/L Anion Gap (5-15) BUN (7-18) mg/dL Creatinine (0.55-1.02) mg/dL Estim Creat Clear Calc ml/min Est GFR (MDRD) Af Amer (>60) mL/min Est GFR (MDRD) Non-Af (>60) mL/min BUN/Creatinine Ratio (10-20) RATIO Glucose (74-106) mg/dL Lactic Acid (0.4-1.9) mmol/L Calcium (8.5-10.1) mg/dL Magnesium 2.3 (1.6-2.6) mg/dL Total Bilirubin 0.30 (0.20-1.00) mg/dL Direct Bilirubin 0.13 (0.00-0.30) mg/dL AST 50 H (15-37) U/L ALT 23 (13-56) U/L Alkaline Phosphatase 198 H (45-117) U/L Lactate Dehydrogenase (84-246) U/L Total Creatine Kinase (26-192) U/L Troponin I (<0.045) ng/mL C-React Prot Ext Range (0.0-3.0) mg/L B-Natriuretic Peptide (0-100) pg/mL Total Protein 6.2 L (6.4-8.2) g/dL Albumin 2.4 L (3.2-5.0) g/dL Globulin 3.8 (2.2-4.2) g/dL Albumin/Globulin Ratio (0.9-2.4) RATIO Procalcitonin (0.00-0.09) ng/mL TSH (0.358-3.74) uIU/mL Urine Color (Yellow) Urine Clarity (Clear) Urine pH (5.0 - 8.0) Ur Specific [place] (1.002-1.030) Urine Protein (Negative) mg/dl Urine Glucose (UA) (Normal) mg/dl Urine Ketones (Negative) mg/dl Urine Occult Blood (Negative) /ul Urine Nitrite (Negative) Urine Bilirubin (Negative) mg/dL Urine Urobilinogen (Normal) mg/dl Ur Leukocyte Esterase (Negative) /ul Urine RBC (0-5) /hpf Urine WBC (0-5) /hpf Ur Squamous Epith Cells (5-10) /hpf Ur Renal Epithelial Cell (0-5) /hpf Urine Bacteria (None Seen) /hpf Hyaline Casts (0-5) /lpf Urine Mucus (<or=2+) /hpf MRSA (PCR) (Negative) 09/30/20 09/30/20 Range/Units 08:12 08:12 WBC (4.4-11.0) K/mm3 RBC (4.2-5.4) M/mm3 Hgb (12.0-15.0) g/dL Hct (37-47) % MCV (81-99) fL MCH (27.0-32.0) pg MCHC (32-36) g/dL RDW Std Deviation (35.1-43.9) fl RDW Coeff of Katelyn (11.6-14.6) % Plt Count (150-450) K/mm3 MPV (6.2-12.0) fl Neut % (Auto) Absolute Neuts (auto) (2.0-7.7) X10^3/uL Absolute Lymphs (auto) (0.83-4.51) X10^3/uL Total Counted (MANUAL DIFF) Neutrophils % (Manual) (47-70) % Band Neutrophils % (0-5) % Lymphocytes % (Manual) (19-41) % Monocytes % (Manual) (0-10) % Metamyelocytes % (0-1) % Myelocytes % (0-0) Diff Path Review Platelet Estimate (ADEQ) RBC Morphology (NORM C&C) NORMAL PT (11.7-14.9) SECONDS INR Fibrinogen (203-444) mg/dl D-Dimer Quant (PE/DVT) (0.27-0.49) FEU/ug/m Specimen Type Sample Site pH (7.35-7.45) Bicarbonate Actual (22-26) mmol/L Total CO2 mmol/L Base Excess (-2 to +2) mmol/L O2 Saturation (95-99) % ABG pCO2 (35-45) mmHg ABG pO2 (75-100) mmHG Sut Test O2 Delivery Device Liter Flow /min Sodium (136-145) mmol/L Potassium (3.5-5.1) mmol/L Chloride (98-107) mmol/L Carbon Dioxide (21.0-32.0) mmol/L Anion Gap (5-15) BUN (7-18) mg/dL Creatinine (0.55-1.02) mg/dL Estim Creat Clear Calc ml/min Est GFR (MDRD) Af Amer (>60) mL/min Est GFR (MDRD) Non-Af (>60) mL/min BUN/Creatinine Ratio (10-20) RATIO Glucose (74-106) mg/dL Lactic Acid (0.4-1.9) mmol/L Calcium (8.5-10.1) mg/dL Magnesium (1.6-2.6) mg/dL Total Bilirubin (0.20-1.00) mg/dL Direct Bilirubin (0.00-0.30) mg/dL AST (15-37) U/L ALT (13-56) U/L Alkaline Phosphatase (45-117) U/L Lactate Dehydrogenase 383 H (84-246) U/L Total Creatine Kinase 66 (26-192) U/L Troponin I (<0.045) ng/mL C-React Prot Ext Range 33.80 H (0.0-3.0) mg/L B-Natriuretic Peptide 53.0 (0-100) pg/mL Total Protein (6.4-8.2) g/dL Albumin (3.2-5.0) g/dL Globulin (2.2-4.2) g/dL Albumin/Globulin Ratio (0.9-2.4) RATIO Procalcitonin (0.00-0.09) ng/mL TSH (0.358-3.74) uIU/mL Urine Color (Yellow) Urine Clarity (Clear) Urine pH (5.0 - 8.0) Ur Specific [place] (1.002-1.030) Urine Protein (Negative) mg/dl Urine Glucose (UA) (Normal) mg/dl Urine Ketones (Negative) mg/dl Urine Occult Blood (Negative) /ul Urine Nitrite (Negative) Urine Bilirubin (Negative) mg/dL Urine Urobilinogen (Normal) mg/dl Ur Leukocyte Esterase (Negative) /ul Urine RBC (0-5) /hpf Urine WBC (0-5) /hpf Ur Squamous Epith Cells (5-10) /hpf Ur Renal Epithelial Cell (0-5) /hpf Urine Bacteria (None Seen) /hpf Hyaline Casts (0-5) /lpf Urine Mucus (<or=2+) /hpf MRSA (PCR) (Negative) Diagnostic Data: Diagnostic Data Chest CTA 09/30/20 08:05 IMPRESSION: Persistent, Diffuse body wall edema skin thickening ill-defined and thickened appearance of the breast tissue pectoralis muscle with and associated skin thickening. Recommend correlation with any recent radiation therapy. There are abnormal bilateral axillary lymph nodes more defined on the right than the left. Findings are concerning for the possibility of a congested or possible infiltrated appearance of the left axilla. Recommend consideration for ultrasound of the bilateral upper extremities if appropriate which can cause chest wall congestion and edema. There are persistent areas of sclerotic density within the posterior ribs which may be associated with possible radiation versus metastatic disease. There are large persistent bilateral effusions with atelectasis. There is persistent crowding of the mediastinum and chest with a thick-walled appearance of the periphery of the mediastinum with reactive enlarge lymphadenopathy highly suspicious for metastatic disease. Recommend consideration for bone scan. The study is limited for the evaluation for pulmonary embolism.. There is note visualized centrally located pulmonary embolism. Electronically Signed: Shania Gardner MD at 8:58 EST Tel , Service support , Assessment and Plan Impression: 1. Hypoxemic respiratory failure. Saturating well on 6 lpm. 2. Covid antigen positive. 3. Left sided malignant pleural effusion. 4. Paroxysmal atrial fibrillation. 5. Left axillary vein DVT. 6. 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 Had discussion with patient this morning and her daughter by phone. She is not a candidate for further chemotherapy. Given the aggressive nature of the disease and her poor/declining performance status I recommended home hospice be the goal. Daughter María expressed an understanding and will discuss further with her mother. Timing of discharge may be an issue due to Covid infection. Plan: 1. PleurX catheter placement today. 2. Continue apixaban. 3. Management of Covid per Dr. Garcia's recommendations. 4. Will follow. Medications: Medications Added to Medication List This Visit Category Date Time Status Amlodipine [Norvasc] Med 10/01/20 10:00 Active 5 mg PO DAILY Aspirin [Aspirin, Baby] Med 10/01/20 08:00 Active 81 mg PO DAILY@0800 Dexamethasone [Decadron] Med 10/01/20 10:00 Active 6 mg IV DAILY Dextrose 5% Viaflo Bag 192.8 ml Med 10/01/20 02:30 Active Amiodarone [Cordarone] 360 mg CONT INF 0.5 mg/min Hydrochlorothiazide [Hctz] Med 10/01/20 10:00 Active 25 mg PO DAILY Losartan Potassium [Cozaar] Med 10/01/20 10:00 Active 50 mg PO DAILY Magnesium Chloride [Mag64] Med 10/01/20 10:00 Active 128 mg PO DAILY Pantoprazole Sodium [Protonix] Med 10/01/20 10:00 Active 20 mg PO DAILY Remdesivir 100 mg Med 10/01/20 10:00 Active 0.9% Normal Saline 230 ml IV DAILY Primary Care Provider: Dr. Amador Oropeza MD Referring Provider:
--- NOTE | 2020-10-01 09:42 | PCM.CONS.GEN ---
Reason for Consult Date of Consultation: 10/01/20 History of Present Illness: The patient is a 80 year old F presented to the ER due to shortness of breath. Patient is Covid positive and also has a history of metastatic breast cancer for which she has left-sided recurrent effusion. Last patient had 950 cc drained and according to the CTA on admit there is still a large effusion on the left side. Currently patient is full code plan may be to transition to hospice as Dr. Amador was discussing with patient's daughter. Currently on BiPAP but was satting mid 90s on 6 L. Patient is also on Eliquis due to DVT however has not had that for 2 days. Past Medical History Past Medical History (Chronic Problems): Chronic Problems Metastatic malignant neoplasm to breast (Chronic) Hypertension (Chronic) Allergies cephalexin [From Keflex] Allergy (Verified 09/30/20 08:11) Rash oxycodone Adverse Reaction (Verified 09/30/20 08:11) Vomiting Home Medications: Ambulatory Orders Medication Instructions Recorded Acetaminophen [Tylenol] 500 mg PO Q4H PRN PRN 09/09/20 Amlodipine [Norvasc] 5 mg PO DAILY 09/09/20 Gabapentin [Neurontin] 300 mg PO TID 09/09/20 Hydrochlorothiazide [Hctz] 25 mg PO DAILY 09/09/20 Losartan Potassium 50 mg PO DAILY 09/09/20 Magnesium Oxide 500 mg PO DAILY 09/09/20 Omeprazole [Prilosec] 20 mg PO DAILY 09/09/20 Ondansetron [Zofran] 8 mg PO Q8H PRN PRN 09/09/20 Vit C/E/Zn/Coppr/Lutein/Zeaxan 2 tab PO DAILY 09/09/20 [Preservision Areds 2 Softgel] Potassium Chloride [K-Dur] 20 meq PO BIDCM #30 tab 09/11/20 Apixaban [Eliquis] 5 mg PO DAILY 09/27/20 Surgical History: appendectomy, cataract, cholecystectomy, hysterectomy, - - Double mastectomy Psychiatric History: No pertinent psych hx 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 Lives: Spouse/ Significant Other Smoking Status: Never smoker Alcohol: None Drugs: None - *Family History Maternal History Items: Heart Disease Paternal History Items: - - Alcoholism Review of Systems Unable to obtain accurate/complete ROS d/t: Did not review with patient as she is Covid positive but did review imaging Patient Problems: Active and Suspected Problems Nausea and vomiting (Acute) Respiratory failure with hypoxia (Acute) COVID-19 (Acute) Pleural effusion (Acute) Acute hypoxemic respiratory failure due to COVID-19 (Acute) DVT (deep venous thrombosis) (Acute) Chronic bilateral pleural effusions (Acute) - Physical Exam Vitals/I&O's: Vital Signs Temp Pulse Resp BP Pulse Ox 98.8 F 88 17 97/57 L 91 10/01/20 00:00 10/01/20 06:00 10/01/20 06:00 10/01/20 06:00 10/01/20 06:55 Oxygen Flow Rate (L/min) 6 Oxygen Delivery Method Nasal Cannula Weight: 195 lb 15.855 oz Body Mass Index (BMI) 32.7 Intake and Output for Last 24 Hours 09/29/20 09/30/20 10/01/20 23:59 23:59 23:59 Intake Total 473 / 473 266.40 / 266.40 Output Total 700 / 700 50 / 50 Balance -227 / -227 216.40 / 216.40 General: No apparent distress - From rollins currently on BiPAP Comment: no PE, will do PE before surgery in OR Microbiology Past 72 Hours 09/30/20 17:45 Urine, Clean Catch Legionella Antigen - Final 09/30/20 17:45 Urine, Clean Catch Streptococcus pneumoniae Antigen (M - Final 09/30/20 11:35 Mucosa - Nasopharyngeal Respiratory Panel (PCR) - Final 09/30/20 08:22 Mucosa - Nose SARS-CoV-2 Antigen (Rapid) - Final SARS-CoV-2 (COVID 19) Laboratory Results 09/30/20 08:12: Lactate Dehydrogenase 383 H, Total Creatine Kinase 66, C-React Prot Ext Range 33.80 H 09/30/20 08:12: B-Natriuretic Peptide 53.0 09/30/20 08:12: Magnesium 2.3 09/30/20 08:12: Total Bilirubin 0.30, Direct Bilirubin 0.13, AST 50 H, ALT 23, Alkaline Phosphatase 198 H, Total Protein 6.2 L, Albumin 2.4 L, Globulin 3.8 09/30/20 11:31: MRSA (PCR) Negative 09/30/20 15:41: PT 18.6 H, INR 1.6, Fibrinogen 371, D-Dimer Quant (PE/DVT) 9.94 H* 09/30/20 15:41: Lactic Acid 3.6 H* 09/30/20 15:41: Procalcitonin 0.38 H 09/30/20 15:41: TSH 3.83 H 09/30/20 17:45: Urine Color Yellow, Urine Clarity Clear, Urine pH 5.0, Ur Specific [place] 1.015, Urine Protein 15 H, Urine Glucose (UA) Normal, Urine Ketones 5 H, Urine Occult Blood 25 H, Urine Nitrite Negative, Urine Bilirubin Negative, Urine Urobilinogen Normal, Ur Leukocyte Esterase 25 H, Urine RBC 0-5 SEEN, Urine WBC 0-5 SEEN, Ur Squamous Epith Cells 0 SEEN, Ur Renal Epithelial Cell 0-5 SEEN, Urine Bacteria 0 SEEN, Hyaline Casts 0-5 SEEN, Urine Mucus 0 SEEN 09/30/20 20:15: Lactic Acid 2.3 H* 09/30/20 22:50: Troponin I 0.083 H 10/01/20 02:30: WBC 38.9 H*, RBC 4.06 L, Hgb 12.3, Hct 39.7, MCV 97.8, MCH 30.3, MCHC 31.0 L, RDW Std Deviation 63.0 H, RDW Coeff of Katelyn 17.7 H, Plt Count 213, MPV 10.2, Neut % (Auto) Not Reportable, Absolute Neuts (auto) 34.2 H, Absolute Lymphs (auto) 1.16, Total Counted 100, Neutrophils % (Manual) 76 H, Band Neutrophils % 12 H, Lymphocytes % (Manual) 3 L, Monocytes % (Manual) 5, Metamyelocytes % 2 H, Myelocytes % 2 H, Diff Path Review December, Platelet Estimate ADEQUATE, RBC Morphology NORM C+C 10/01/20 02:30: Sodium 140, Potassium 5.1, Chloride 105, Carbon Dioxide 27.0, Anion Gap 8, BUN 39 H, Creatinine 1.86 H, Estim Creat Clear Calc 20.83, Est GFR (MDRD) Af Amer 34 L, Est GFR (MDRD) Non-Af 28 L, BUN/Creatinine Ratio 21.0 H, Glucose 139 H, Calcium 8.1 L, Magnesium 2.9 H, Total Bilirubin 0.30, AST 88 H, ALT 42, Alkaline Phosphatase 188 H, Total Protein 5.5 L, Albumin 2.2 L, Globulin 3.3, Albumin/Globulin Ratio 0.7 L 10/01/20 02:30: Troponin I 0.102 H 10/01/20 05:35: Troponin I 0.106 H Current Medications Acetaminophen (Acetaminophen 325 Mg Tablet) 650 mg PO Q6H PRN PRN PRN Reason: Pain Score 1-10/Temp > 100.7 F Last Admin: 10/01/20 08:55 Dose: 650 mg Documented by: Al Hydroxide/Mg Hydroxide (Mag Hydrox/Al Hydrox/Simeth 30 Ml Udc) 30 ml PO Q6H PRN PRN PRN Reason: Gastric Burning Albuterol Sulfate (Albuterol 2.5 Mg/3 Ml Vial.Neb.) 2.5 mg INHALATION Q2H PRN PRN PRN Reason: SOB/Wheezing Amlodipine Besylate (Amlodipine 5 Mg Tablet) 5 mg PO DAILY [facility] Last Admin: 10/01/20 08:56 Dose: 5 mg Documented by: Aspirin (Aspirin 81 Mg Tab.Chew) 81 mg PO DAILY@0800 [facility] Last Admin: 10/01/20 08:56 Dose: 81 mg Documented by: Buspirone HCl (Buspirone 5 Mg Tablet) 10 mg PO TID [facility] Last Admin: 10/01/20 05:33 Dose: 10 mg Documented by: Dexamethasone Sodium Phosphate (Dexamethasone 10 Mg/Ml Vial) 6 mg IV DAILY [facility] Last Admin: 10/01/20 08:55 Dose: 6 mg Documented by: Enoxaparin Sodium (Enoxaparin 100 Mg/Ml Syringe) 90 mg SC Q12@0600,1800 [facility] Last Admin: 10/01/20 06:05 Dose: Not Given Documented by: Gabapentin (Gabapentin 300 Mg Capsule) 300 mg PO TIDPC [facility] Last Admin: 10/01/20 08:56 Dose: 300 mg Documented by: Hydrochlorothiazide (Hydrochlorothiazide 25 Mg Tablet) 25 mg PO DAILY [facility] Last Admin: 10/01/20 08:56 Dose: 25 mg Documented by: Hydromorphone HCl (Hydromorphone 1 Mg/Ml Syringe) 1 mg IV Q4H PRN PRN PRN Reason: Pain Score 6-10 Last Admin: 10/01/20 03:54 Dose: 1 mg Documented by: Remdesivir 100 mg/ Sodium (Chloride) 250 mls @ 125 mls/hr IV DAILY [facility] Stop: 10/04/20 11:59 Last Admin: 10/01/20 09:16 Dose: 125 mls/hr Documented by: Amiodarone HCl 360 mg/ (Dextrose) 200 mls @ 16.667 mls/hr CONT INF .Q12H [facility] Stop: 10/01/20 20:29 Last Infusion: 10/01/20 08:00 Dose: Infused Documented by: Losartan Potassium (Losartan Potassium 50 Mg Tablet) 50 mg PO DAILY [facility] Last Admin: 10/01/20 08:55 Dose: 50 mg Documented by: Magnesium Chloride (Magnesium Chloride 64 Mg Delay Rel.Tablet) 128 mg PO DAILY [facility] Last Admin: 10/01/20 08:56 Dose: 128 mg Documented by: Melatonin (Melatonin 3 Mg Tablet) 3 mg PO QHS PRN PRN PRN Reason: INSOMNIA Ondansetron HCl (Ondansetron 4 Mg/2 Ml Vial) 8 mg IV Q8H PRN PRN PRN Reason: NAUSEA/VOMITING Last Admin: 10/01/20 04:02 Dose: 8 mg Documented by: Pantoprazole Sodium (Pantoprazole Sodium 20 Mg Tablet) 20 mg PO DAILY [facility] Last Admin: 10/01/20 08:56 Dose: 20 mg Documented by: Potassium Chloride (Potassium Chloride 20 Meq Tablet) 20 meq PO BIDPC [facility] Last Admin: 10/01/20 09:15 Dose: Not Given Documented by: Prochlorperazine Edisylate (Prochlorperazine 10 Mg/2 Ml Vial) 5 mg IV Q4H PRN PRN PRN Reason: Breakthrough Nausea/Vomiting Last Admin: 09/30/20 11:21 Dose: 5 mg Documented by: Senna/Docusate Sodium (Senna/Docusate Sodium 1 Tablet) 2 tablet PO BID PRN PRN PRN Reason: Constipation Last Admin: 10/01/20 08:56 Dose: 2 tablet Documented by: Assessment/Plan All Active Problems Nausea and vomiting (Acute) Dyspnea and respiratory abnormalities (Acute) Respiratory failure with hypoxia (Acute) COVID-19 (Acute) Pleural effusion (Acute) Acute hypoxemic respiratory failure due to COVID-19 (Acute) DVT (deep venous thrombosis) (Acute) Chronic bilateral pleural effusions (Acute) 80-year-old female with metastatic left pleural effusion recurrent, Covid positive 1. We will discuss with the patient's daughter as well as the patient which per nursing both are agreeable to. Patient did have left thoracentesis for 950 cc last . On CTA today patient does have another large left pleural effusion. Discussed procedure as well as risks including but not limited to bleeding, infection, leakage, malfunction of the catheter with patient's daughter María and she had no further questions this time. Estela Denson M.D. Pager: [phone] [facility] [address] [place] [address], [facility], [address] [place] [address] Office: [phone]
[2020-10-01] MEDS: 0.9% Normal Saline 1,000 ML 50 ML IV (10:55)
--- NOTE | 2020-10-01 11:00 | CASEMGMT ---
Addendum entered by Mala Jones 10/01/20 11:06: SW called Dr. Amador's office, POA/LW on file, they will fax it to this SW. NILA Chance Original Note: SW participated in ICU rounds. SW called pt's daughter María Fernandes, message left. SW will continue to follow. NILA Chance
[2020-10-01 11:57] LABS: Pathologist Review Reviewed
[2020-10-01 11:59] LABS: Pathologist Review Reviewed
--- NOTE | 2020-10-01 12:12 | CASEMGMT ---
Addendum entered by Mala Jones 10/01/20 13:08: Pt's daughter María left a message stating daughter Adri has the POA papers and can fax them over, to call Adri w/fax number. SW called Adri with the fax number, she is going to fax over the documents this afternoon. NILA Chance Original Note: Pt's daughter called this SW back, SW spoke w/her regarding pt's prior level of function and anticipated discharge plan. PCP: Dr. Oropeza Specialists: Dr. Amador w/oncology Insurance: [employer] Medicare Pharmacy: [facility] in [place] LNOK: Pt has two daughters and a Living arrangements/prior level of function: Prior to this hospitalization, pt was independent, lives home w/. Pt does all her own personal care, cooks, cleans, organizes meds, drives. SNF/HHC/DME: Pt has never been to a residential, has never had home health, uses no DME, not on O2 at home. SW spoke w/daughter about initially POA forms, SW explained did call [facility] and they are going to fax over the POA forms. Daughter explained she had also called and was told they only had every other page(it was double sided and only one side was scanned in). SW will let daughter know when the documents come over. Pt's other daughter was going to look for the documents and will let this SW know also if she finds them. SW explained that without the document, pt's would be considered POA for healthcare. SW explained that he can of course speak w/daughters about any decisions that need made, if the documents are not located. Daughter states understanding. Daughter explains that they are not sure in regard to making decisions. She states pt has always wanted everything done, states pt is a fighter. She states they want to see how pt does with the thoracenteses, and then decide what to do. SW offered support to daughter. SW will remain available to family for support as needed, and and SW/CM available to make referrals as appropriate. [facility] did fax over the POA/LW documents and they are incomplete as the daughter had stated they may be. SW called daughter María to let her know. She will let this SW know if her sister, pt's other daughter, finds the full copies of documents. SW will continue to follow. NILA Chance
--- NOTE | 2020-10-01 15:38 | CON.PCM_ITS ---
Problem List (1) COVID-19 Status: Acute Reason for Consult: covid Consulted by: Dr. Damon History of Present Illness: The patient is a 80 year old F with metastatic breast cancer and recurrent pleural effusion, presented 09/30 to the ED with 3-4 days of worsened cough, SOB, and n/v. No fever or chills, no new change in taste or smell. Covid (+), admitted to icu on dex, remdesivir. New ARMIDA this AM after lasix. Full ROS performed and neg except as noted above. - Medical History Past Medical History (Chronic Problems): Chronic Problems Metastatic malignant neoplasm to breast (Chronic) Hypertension (Chronic) Allergies/Adverse Reactions: Allergies cephalexin [From Keflex] Allergy (Verified 09/30/20 08:11) Rash oxycodone Adverse Reaction (Verified 09/30/20 08:11) Vomiting Home Medications: Ambulatory Orders Medication Instructions Recorded Acetaminophen [Tylenol] 500 mg PO Q4H PRN PRN 09/09/20 Amlodipine [Norvasc] 5 mg PO DAILY 09/09/20 Gabapentin [Neurontin] 300 mg PO TID 09/09/20 Hydrochlorothiazide [Hctz] 25 mg PO DAILY 09/09/20 Losartan Potassium 50 mg PO DAILY 09/09/20 Magnesium Oxide 500 mg PO DAILY 09/09/20 Omeprazole [Prilosec] 20 mg PO DAILY 09/09/20 Ondansetron [Zofran] 8 mg PO Q8H PRN PRN 09/09/20 Vit C/E/Zn/Coppr/Lutein/Zeaxan 2 tab PO DAILY 09/09/20 [Preservision Areds 2 Softgel] Potassium Chloride [K-Dur] 20 meq PO BIDCM #30 tab 09/11/20 Apixaban [Eliquis] 5 mg PO DAILY 09/27/20 - Social History Tobacco Use: non-smoker Vital Signs Temp Pulse Resp BP Pulse Ox 97.8 F 82 17 84/50 L 94 10/01/20 14:59 10/01/20 15:00 10/01/20 15:00 10/01/20 15:00 10/01/20 15:00 Oxygen Flow Rate (L/min) 6 Oxygen Delivery Method Bi-pap Weight: 87 kg Body Mass Index (BMI) 32.7 Microbiology Past 72 Hours 09/30/20 17:45 Legionella Antigen - Final Urine, Clean Catch Streptococcus pneumoniae Antigen (M - Final 09/30/20 11:35 Respiratory Panel (PCR) - Final Mucosa - Nasopharyngeal 09/30/20 08:22 SARS-CoV-2 Antigen (Rapid) - Final Mucosa - Nose SARS-CoV-2 (COVID 19) Laboratory Tests Past 24 Hrs 09/30/20 09/30/20 09/30/20 08:12 15:41 15:41 WBC RBC Hgb Hct MCV MCH MCHC RDW Std Deviation RDW Coeff of Katelyn Plt Count MPV Neut % (Auto) Absolute Neuts (auto) Absolute Lymphs (auto) Total Counted Neutrophils % (Manual) Band Neutrophils % Lymphocytes % (Manual) Monocytes % (Manual) Metamyelocytes % Myelocytes % Diff Path Review Reviewed Platelet Estimate RBC Morphology PT 18.6 H INR 1.6 Fibrinogen 371 D-Dimer Quant (PE/DVT) 9.94 H* Sodium Potassium Chloride Carbon Dioxide Anion Gap BUN Creatinine Estim Creat Clear Calc Est GFR (MDRD) Af Amer Est GFR (MDRD) Non-Af BUN/Creatinine Ratio Glucose Lactic Acid 3.6 H* Calcium Magnesium Total Bilirubin AST ALT Alkaline Phosphatase Troponin I Total Protein Albumin Globulin Albumin/Globulin Ratio Procalcitonin TSH Urine Color Urine Clarity Urine pH Ur Specific [place] Urine Protein Urine Glucose (UA) Urine Ketones Urine Occult Blood Urine Nitrite Urine Bilirubin Urine Urobilinogen Ur Leukocyte Esterase Urine RBC Urine WBC Ur Squamous Epith Cells Ur Renal Epithelial Cell Urine Bacteria Hyaline Casts Urine Mucus 09/30/20 09/30/20 09/30/20 15:41 15:41 17:45 WBC RBC Hgb Hct MCV MCH MCHC RDW Std Deviation RDW Coeff of Katelyn Plt Count MPV Neut % (Auto) Absolute Neuts (auto) Absolute Lymphs (auto) Total Counted Neutrophils % (Manual) Band Neutrophils % Lymphocytes % (Manual) Monocytes % (Manual) Metamyelocytes % Myelocytes % Diff Path Review Platelet Estimate RBC Morphology PT INR Fibrinogen D-Dimer Quant (PE/DVT) Sodium Potassium Chloride Carbon Dioxide Anion Gap BUN Creatinine Estim Creat Clear Calc Est GFR (MDRD) Af Amer Est GFR (MDRD) Non-Af BUN/Creatinine Ratio Glucose Lactic Acid Calcium Magnesium Total Bilirubin AST ALT Alkaline Phosphatase Troponin I Total Protein Albumin Globulin Albumin/Globulin Ratio Procalcitonin 0.38 H TSH 3.83 H Urine Color Yellow Urine Clarity Clear Urine pH 5.0 Ur Specific [place] 1.015 Urine Protein 15 H Urine Glucose (UA) Normal Urine Ketones 5 H Urine Occult Blood 25 H Urine Nitrite Negative Urine Bilirubin Negative Urine Urobilinogen Normal Ur Leukocyte Esterase 25 H Urine RBC 0-5 SEEN Urine WBC 0-5 SEEN Ur Squamous Epith Cells 0 SEEN Ur Renal Epithelial Cell 0-5 SEEN Urine Bacteria 0 SEEN Hyaline Casts 0-5 SEEN Urine Mucus 0 SEEN 09/30/20 09/30/20 10/01/20 20:15 22:50 02:30 WBC 38.9 H* RBC 4.06 L Hgb 12.3 Hct 39.7 MCV 97.8 MCH 30.3 MCHC 31.0 L RDW Std Deviation 63.0 H RDW Coeff of Katelyn 17.7 H Plt Count 213 MPV 10.2 Neut % (Auto) Not Reportable Absolute Neuts (auto) 34.2 H Absolute Lymphs (auto) 1.16 Total Counted 100 Neutrophils % (Manual) 76 H Band Neutrophils % 12 H Lymphocytes % (Manual) 3 L Monocytes % (Manual) 5 Metamyelocytes % 2 H Myelocytes % 2 H Diff Path Review Reviewed Platelet Estimate ADEQUATE RBC Morphology NORM C+C PT INR Fibrinogen D-Dimer Quant (PE/DVT) Sodium Potassium Chloride Carbon Dioxide Anion Gap BUN Creatinine Estim Creat Clear Calc Est GFR (MDRD) Af Amer Est GFR (MDRD) Non-Af BUN/Creatinine Ratio Glucose Lactic Acid 2.3 H* Calcium Magnesium Total Bilirubin AST ALT Alkaline Phosphatase Troponin I 0.083 H Total Protein Albumin Globulin Albumin/Globulin Ratio Procalcitonin TSH Urine Color Urine Clarity Urine pH Ur Specific [place] Urine Protein Urine Glucose (UA) Urine Ketones Urine Occult Blood Urine Nitrite Urine Bilirubin Urine Urobilinogen Ur Leukocyte Esterase Urine RBC Urine WBC Ur Squamous Epith Cells Ur Renal Epithelial Cell Urine Bacteria Hyaline Casts Urine Mucus 10/01/20 10/01/20 10/01/20 02:30 02:30 05:35 WBC RBC Hgb Hct MCV MCH MCHC RDW Std Deviation RDW Coeff of Katelyn Plt Count MPV Neut % (Auto) Absolute Neuts (auto) Absolute Lymphs (auto) Total Counted Neutrophils % (Manual) Band Neutrophils % Lymphocytes % (Manual) Monocytes % (Manual) Metamyelocytes % Myelocytes % Diff Path Review Platelet Estimate RBC Morphology PT INR Fibrinogen D-Dimer Quant (PE/DVT) Sodium 140 Potassium 5.1 Chloride 105 Carbon Dioxide 27.0 Anion Gap 8 BUN 39 H Creatinine 1.86 H Estim Creat Clear Calc 20.83 Est GFR (MDRD) Af Amer 34 L Est GFR (MDRD) Non-Af 28 L BUN/Creatinine Ratio 21.0 H Glucose 139 H Lactic Acid Calcium 8.1 L Magnesium 2.9 H Total Bilirubin 0.30 AST 88 H ALT 42 Alkaline Phosphatase 188 H Troponin I 0.102 H 0.106 H Total Protein 5.5 L Albumin 2.2 L Globulin 3.3 Albumin/Globulin Ratio 0.7 L Procalcitonin TSH Urine Color Urine Clarity Urine pH Ur Specific [place] Urine Protein Urine Glucose (UA) Urine Ketones Urine Occult Blood Urine Nitrite Urine Bilirubin Urine Urobilinogen Ur Leukocyte Esterase Urine RBC Urine WBC Ur Squamous Epith Cells Ur Renal Epithelial Cell Urine Bacteria Hyaline Casts Urine Mucus - Other Studies Radiology: [] reviewed Other Studies: [] Route of nutrition/ use of supplements: [] Nutritional Intake: [] IV Site: [] Flores Catheter: [] - Physical Exam General: Alert, Cooperative HEENT: Atraumatic, PERRLA, EOMI Neck: Supple, No Nodes Lungs: Diminished, Using Accessory Muscles Cardiovascular: Regular rate, Regular Rhythm Abdomen: Soft, Non Tender, Non-Distended Extremities: Edema Skin: No rashes IV Site: Peripheral, without redness Musculoskeletal: No Tenderness to Palpation of Joints or Extremities Neurological: Cranial nerves II-XII grossly intact - Assessment/Plan Antibiotics: [] Assessment/Plan: [] Active and Suspected Problems Nausea and vomiting (Acute) Respiratory failure with hypoxia (Acute) COVID-19 (Acute) Pleural effusion (Acute) Acute hypoxemic respiratory failure due to COVID-19 (Acute) DVT (deep venous thrombosis) (Acute) Chronic bilateral pleural effusions (Acute) covid with hypoxia, ARMIDA, metastatic breast cancer - on dex, remdesivir, therapeutic lovenox. Will change dex to po. D-dimer 10. New ARMIDA this AM, will monitor while on remdesivir. Sx started around 09/26/20. Will follow, thank you
--- NOTE | 2020-10-01 15:50 | CASEMGMT ---
Pt's daughter faxed in the LW/POA forms, pt's is listed as POA. SW spoke pt's RN, let her know. She states pt's does not have a phone. SW called daughter María and let her know that pt's other daughter Adri did fax in the POA/LW, and that pt's is listed as POA, and she is second. She confirmed pt's does not have a phone. Pt's daughter Adri is stopping in to see , as María is positive for COVID. Pt's has been tested but his results are not back, and pt's daughter Adri has already had COVID. SW explained we will continue to communicate w/María since we cannot call . As per María, family will be making decisions together. We did speak about what may be needed after this hospitalization, we reviewed both home care and intermediate placement. María states she knows pt will want to go home if she can, asked about pt going home w/ if he does not have COVID. SW explained to check w/the nurse or doctor closer to when pt would be ready for discharge, to see if it would be okay for pt to home w/, if he does not have COVID. SW also explained to daughter if SNF is needed, we would have to choose one that is taking COVID patients and is in network w/[employer]. Daughter states understanding. SW will continue to follow for support and CM/SW to follow for discharge needs. NILA Chance
[2020-10-01] MEDS: Bupivacaine Mpf 0.5% 30 ML VIAL (16:10)
--- NOTE | 2020-10-01 16:17 | PCM.OPRPT ---
Report of Operation Date of Procedure: 10/01/20 Pre-Operative Diagnosis: Metastatic breast cancer, recurrent left pleural effusion malignant Post-Operative Diagnosis: Same Surgery/Procedure Performed:: Insertion of left chest Pleurx catheter Type of Anesthesia:: Local MAC Anesthesiologist: Bry Saul Special Medications: Clindamycin 600 mg IV x1 Drains: Pleurx catheter 800 cc serosanguineous fluid Estimated Blood Loss (mL): Minimal Fluids Replaced: 500 cc Description of Procedure: Informed consent was obtained. Patient was placed prone on the operating table. MAC anesthesia was induced. The Left lateral and anterior chest wall was prepped draped in usual sterile fashion. Fluoroscopy was used to identify the location of Entry for the Pleurx catheter. Local anesthesia of 0.25% bupivacaine and 1% lidocaine was used. Needle was used to enter the pleural space fluid was aspirated, guidewire was placed into the pleural space confirmed with fluoroscopy and incision was made at the patient with a 11 blade scalpel. An additional incision was made with 11 blade scalpel more anterior and inferior to the original incision, attempting to avoid any of the skin metastasis lesions.. The Pleurx catheter was tunneled from the more anterior to the more posterior incision. The dilator and introducer were placed over the guidewire again this was visualized under fluoroscopy. The guidewire was removed after the introducer was placed. The catheter was threaded through the introducer and the sheath was peeled away. A total of about 800 cc of Lois colored initially some serosanguineous towards the end liquid was removed As catheter was placed to -20 suction on Pleurx catheter. The lateral/posterior incision was sutured with 3-0 Vicryl and closed with Steri-Strips. 3-0 nylon suture was used to secure the end of the catheter at the anterior incision. 4 x 4 dressings and OpSite were placed. Patient tolerated procedure well. He was taken back to the ICU in stable condition. - Complications none
--- NOTE | 2020-10-01 16:24 | PN_ITS ---
Patient Problems: Active and Suspected Problems Nausea and vomiting (Acute) Respiratory failure with hypoxia (Acute) COVID-19 (Acute) Pleural effusion (Acute) Acute hypoxemic respiratory failure due to COVID-19 (Acute) DVT (deep venous thrombosis) (Acute) Chronic bilateral pleural effusions (Acute) Subjective: Improvement of her breathing with BiPAP, prior to this she was feeling significantly short of breath. Plan is for tunneled catheter today in the OR on the left Vitals/I&O's: Vital Signs Temp Pulse Resp BP Pulse Ox 97.8 F 82 17 84/50 L 94 10/01/20 14:59 10/01/20 15:00 10/01/20 15:00 10/01/20 15:00 10/01/20 15:00 Oxygen Flow Rate (L/min) 6 Oxygen Delivery Method Bi-pap Weight: 191 lb 12.835 oz Body Mass Index (BMI) 32.7 Intake and Output for Last 24 Hours 09/29/20 09/30/20 10/01/20 23:59 23:59 23:59 Intake Total 473 / 473 576.40 / 576.40 Output Total 700 / 700 65 / 65 Balance -227 / -227 511.40 / 511.40 General: Alert, Oriented x3, Cooperative, No apparent distress HEENT: Atraumatic, PERRLA, EOMI, Normocephalic Oral: Dry Mucosa Neck: Supple, No JVD Lungs: Clear to auscultation, Normal air movement, No rhonchi, No wheeze, No rales, Diminished Cardiovascular: Regular rate, Regular Rhythm, Normal S1, Normal S2, No murmurs Abdomen: Soft, Non Tender, Non-Distended, No Hepato-splenomegaly Extremities: No edema, Capillary Refill Less than 3 Seconds Skin: No rashes, No breakdown Neurological: Neuro grossly intact, Sensory exam intact to light touch and pain Psych/Mental Status: Anxious, Restless Microbiology Past 72 Hours 09/30/20 17:45 Urine, Clean Catch Legionella Antigen - Final 09/30/20 17:45 Urine, Clean Catch Streptococcus pneumoniae Antigen (M - Final 09/30/20 11:35 Mucosa - Nasopharyngeal Respiratory Panel (PCR) - Final 09/30/20 08:22 Mucosa - Nose SARS-CoV-2 Antigen (Rapid) - Final SARS-CoV-2 (COVID 19) Laboratory Results 09/30/20 08:12: Diff Path Review Reviewed 09/30/20 15:41: D-Dimer Quant (PE/DVT) 9.94 H* 09/30/20 15:41: Lactic Acid 3.6 H* 09/30/20 15:41: Procalcitonin 0.38 H 09/30/20 15:41: TSH 3.83 H 09/30/20 17:45: Urine Color Yellow, Urine Clarity Clear, Urine pH 5.0, Ur Specific [place] 1.015, Urine Protein 15 H, Urine Glucose (UA) Normal, Urine Ketones 5 H, Urine Occult Blood 25 H, Urine Nitrite Negative, Urine Bilirubin Negative, Urine Urobilinogen Normal, Ur Leukocyte Esterase 25 H, Urine RBC 0-5 SEEN, Urine WBC 0-5 SEEN, Ur Squamous Epith Cells 0 SEEN, Ur Renal Epithelial Cell 0-5 SEEN, Urine Bacteria 0 SEEN, Hyaline Casts 0-5 SEEN, Urine Mucus 0 SEEN 09/30/20 20:15: Lactic Acid 2.3 H* 09/30/20 22:50: Troponin I 0.083 H 10/01/20 02:30: WBC 38.9 H*, RBC 4.06 L, Hgb 12.3, Hct 39.7, MCV 97.8, MCH 30.3, MCHC 31.0 L, RDW Std Deviation 63.0 H, RDW Coeff of Katelyn 17.7 H, Plt Count 213, MPV 10.2, Neut % (Auto) Not Reportable, Absolute Neuts (auto) 34.2 H, Absolute Lymphs (auto) 1.16, Total Counted 100, Neutrophils % (Manual) 76 H, Band Neutrophils % 12 H, Lymphocytes % (Manual) 3 L, Monocytes % (Manual) 5, Metamyelocytes % 2 H, Myelocytes % 2 H, Diff Path Review Reviewed, Platelet Estimate ADEQUATE, RBC Morphology NORM C+C 10/01/20 02:30: Sodium 140, Potassium 5.1, Chloride 105, Carbon Dioxide 27.0, Anion Gap 8, BUN 39 H, Creatinine 1.86 H, Estim Creat Clear Calc 20.83, Est GFR (MDRD) Af Amer 34 L, Est GFR (MDRD) Non-Af 28 L, BUN/Creatinine Ratio 21.0 H, Glucose 139 H, Calcium 8.1 L, Magnesium 2.9 H, Total Bilirubin 0.30, AST 88 H, ALT 42, Alkaline Phosphatase 188 H, Total Protein 5.5 L, Albumin 2.2 L, Globulin 3.3, Albumin/Globulin Ratio 0.7 L 10/01/20 02:30: Troponin I 0.102 H 10/01/20 05:35: Troponin I 0.106 H Current Medications Acetaminophen (Acetaminophen 325 Mg Tablet) 650 mg PO Q6H PRN PRN PRN Reason: Pain Score 1-10/Temp > 100.7 F Last Admin: 10/01/20 08:55 Dose: 650 mg Documented by: Al Hydroxide/Mg Hydroxide (Mag Hydrox/Al Hydrox/Simeth 30 Ml Udc) 30 ml PO Q6H PRN PRN PRN Reason: Gastric Burning Albuterol Sulfate (Albuterol 2.5 Mg/3 Ml Vial.Neb.) 2.5 mg INHALATION Q2H PRN PRN PRN Reason: SOB/Wheezing Amlodipine Besylate (Amlodipine 5 Mg Tablet) 5 mg PO DAILY [facility] Last Admin: 10/01/20 08:56 Dose: 5 mg Documented by: Aspirin (Aspirin 81 Mg Tab.Chew) 81 mg PO DAILY@0800 [facility] Last Admin: 10/01/20 08:56 Dose: 81 mg Documented by: Buspirone HCl (Buspirone 5 Mg Tablet) 10 mg PO TID [facility] Last Admin: 10/01/20 15:50 Dose: Not Given Documented by: Dexamethasone (Dexamethasone 4 Mg Tablet) 6 mg PO DAILY [facility] Stop: 10/09/20 10:01 Enoxaparin Sodium (Enoxaparin 100 Mg/Ml Syringe) 90 mg SC DAILY [facility] Gabapentin (Gabapentin 300 Mg Capsule) 300 mg PO TIDPC [facility] Last Admin: 10/01/20 15:50 Dose: Not Given Documented by: Hydrochlorothiazide (Hydrochlorothiazide 25 Mg Tablet) 25 mg PO DAILY [facility] Last Admin: 10/01/20 08:56 Dose: 25 mg Documented by: Hydromorphone HCl (Hydromorphone 1 Mg/Ml Syringe) 1 mg IV Q4H PRN PRN PRN Reason: Pain Score 6-10 Last Admin: 10/01/20 03:54 Dose: 1 mg Documented by: Remdesivir 100 mg/ Sodium (Chloride) 250 mls @ 125 mls/hr IV DAILY [facility] Stop: 10/04/20 11:59 Last Infusion: 10/01/20 11:48 Dose: Infused Documented by: Amiodarone HCl 360 mg/ (Dextrose) 200 mls @ 16.667 mls/hr CONT INF .Q12H [facility] Stop: 10/01/20 20:29 Last Admin: 10/01/20 15:50 Dose: Not Given Documented by: Sodium Chloride () 1,000 mls @ 50 mls/hr IV .Q20H [facility] Last Admin: 10/01/20 10:55 Dose: 50 mls/hr Documented by: Losartan Potassium (Losartan Potassium 50 Mg Tablet) 50 mg PO DAILY [facility] Last Admin: 10/01/20 08:55 Dose: 50 mg Documented by: Magnesium Chloride (Magnesium Chloride 64 Mg Delay Rel.Tablet) 128 mg PO DAILY [facility] Last Admin: 10/01/20 08:56 Dose: 128 mg Documented by: Melatonin (Melatonin 3 Mg Tablet) 3 mg PO QHS PRN PRN PRN Reason: INSOMNIA Ondansetron HCl (Ondansetron 4 Mg/2 Ml Vial) 8 mg IV Q8H PRN PRN PRN Reason: NAUSEA/VOMITING Last Admin: 10/01/20 04:02 Dose: 8 mg Documented by: Pantoprazole Sodium (Pantoprazole Sodium 20 Mg Tablet) 20 mg PO DAILY [facility] Last Admin: 10/01/20 08:56 Dose: 20 mg Documented by: Potassium Chloride (Potassium Chloride 20 Meq Tablet) 20 meq PO BIDPC [facility] Last Admin: 10/01/20 16:13 Dose: Not Given Documented by: Prochlorperazine Edisylate (Prochlorperazine 10 Mg/2 Ml Vial) 5 mg IV Q4H PRN PRN PRN Reason: Breakthrough Nausea/Vomiting Last Admin: 09/30/20 11:21 Dose: 5 mg Documented by: Senna/Docusate Sodium (Senna/Docusate Sodium 1 Tablet) 2 tablet PO BID PRN PRN PRN Reason: Constipation Last Admin: 10/01/20 08:56 Dose: 2 tablet Documented by: STROKE Vital Signs/Narrative: Vital Signs Temp Pulse Resp BP BP Pulse Ox 10/01/20 15:00 82 17 84/50 L 94 10/01/20 14:59 97.8 F 84 24 H 84/50 L 92 10/01/20 14:45 82 18 94 10/01/20 14:00 81 17 98/54 L 96 10/01/20 13:00 82 16 106/52 L 96 Medical Necessity - Tobacco Use Smoking Status: Never smoker Assessment/Plan All Active Problems Nausea and vomiting (Acute) Dyspnea and respiratory abnormalities (Acute) Respiratory failure with hypoxia (Acute) COVID-19 (Acute) Pleural effusion (Acute) Acute hypoxemic respiratory failure due to COVID-19 (Acute) DVT (deep venous thrombosis) (Acute) Chronic bilateral pleural effusions (Acute) 1. Acute hypoxic respiratory failure secondary to recurrent bilateral malignant pleural effusions and sepsis secondary to COVID-19 pneumonia/metastatic breast cancer/DVT of left upper extremity/ARMIDA -Continue with Eliquis secondary to her both Covid as well as metastatic breast cancer leading to her DVT of her left upper extremity -Plan for tunneled pleural catheter today on the left -Appreciate pulmonology and ID assistance -Continue with Decadron and remdesivir -We will hold IV diuresis secondary to bump in her creatinine from 1.98 to 1.86 2. New onset A. fib with RVR/HTN/HLD -Likely secondary to her large pleural effusions -Already anticoagulated with Eliquis will continue when okay with surgery -RVR is likely the culprit for her bump in troponin secondary to demand ischemia -He was given a dose of digoxin overnight which seemed to help, continue with amiodarone -Continue with Norvasc and losartan 3. GERD -Stable -Continue with PPI DVT: SCDs and Eliquis Inpatient E&M: [id number] [facility] Hosp L2
--- NOTE | 2020-10-01 16:45 | RAD_ITS ---
STUDY: X-RAY CHEST REASON FOR EXAM: Female, 80 years old. LEFT CHEST TUBE PLACEMENT TECHNIQUE: Frontal view COMPARISON: 09/27/2020 FINDINGS: Moderate right pleural effusion with possible basilar atelectasis/consolidation. Left chest tube with tip extending to the left lung apex. Normal size heart. Normal mediastinum and raven. Normal visualized pulmonary arteries. Normal visualized aortic arch and descending thoracic aorta. Degenerative changes of the thoracic spine. Degenerative changes at the shoulders. There is no demonstrated abnormality of the visualized soft tissue structures of the upper abdomen. RAD/Chest 1 View (Portable) IMPRESSION: Moderate right pleural effusion with possible basilar atelectasis/consolidation. Left chest tube with tip extending to the left lung apex. Electronically Signed: Gregorio Patel DO at 18:08 EST Tel [phone], Service support ,
[2020-10-01] MEDS: Lactated Ringers 1,000 ML 999 ML IV ×2 (16:50→21:30)
[2020-10-02] VITALS (60 sets, daily range): BP systolic 55–158; BP diastolic 17–139; PULSE 80–107; RESP 12–25; TEMP 35.8–36.7; O2SAT 67–98
[2020-10-02 00:31] LABS: Bedside Glucose 132 mg/dL (70-110)
[2020-10-02] MEDS: TITRATION PARAMETER CHANGE 1 EACH IV (01:58)
[2020-10-02 04:23] LABS: Hematocrit 29.8 % (37-47); Hemoglobin 9.6 g/dL (12.0-15.0); Mean Corp Hgb Conc 32.2 g/dL (32-36); Mean Corpuscular Hgb 31.9 pg (27.0-32.0); POSITIVE COUNT YES; Platelet Count 158 K/mm3 (150-450); RBC Distribution Width CV 18.7 % (11.6-14.6); RBC Distribution Width SD 64.3 fl (35.1-43.9); Red Blood Count 3.01 M/mm3 (4.2-5.4)
[2020-10-02 04:27] LABS: White Blood Count 41.8 K/mm3 (4.4-11.0)
[2020-10-02 04:28] LABS: Scan Indicated on CBC? Y/N YES- FLAGS NOTED
[2020-10-02 04:38] LABS: ALB/GLOB Ratio 0.7 RATIO (0.9-2.4); AST(SGOT) 105 U/L (15-37); Alanine Aminotransfer ALT/SGPT 53 U/L (13-56); Albumin, Serum 1.8 g/dL (3.2-5.0); Alkaline Phosphatase 191 U/L (45-117); Anion Gap 12 (5-15); BUN 57 mg/dL (7-18); BUN/Creat Ratio 21.3 RATIO (10-20); Calcium,Total 6.9 mg/dL (8.5-10.1); Chloride 107 mmol/L (98-107); Creatinine, Serum 2.67 mg/dL (0.55-1.02); EST Glomerular Filtration Rate 18 mL/min (>60); Est Glom Filt Rate - Afr Amer 22 mL/min (>60); Estimated Creatinine Clearance 14.51 ml/min; Globulin 2.7 g/dL (2.2-4.2); Glucose 114 mg/dL (74-106); Potassium 4.5 mmol/L (3.5-5.1); Protein, Total 4.5 g/dL (6.4-8.2); Sodium Level 141 mmol/L (136-145)
[2020-10-02] MEDS: busPIRone 5 MG Tablet 10 MG PO (06:25)
[2020-10-02] MEDS: Hydrocortisone Sod Succinate 100 MG/2 ML Vial IV (06:26)
--- NOTE | 2020-10-02 08:01 | PCM.PN.INT ---
Subjective: Patient with continued decompensation overnight. Following Pleurx catheter placement, patient had significant hypotension that was unresponsive to fluid challenges. Patient eventually had to be placed on pressor agents. Urine output continues to be marginal. Blood pressures have been unreliable. Objective: Chest x-ray shows the development of a right-sided pleural effusion General: Alert, Confused, Disoriented, - - Fair BiPAP synchrony. HEENT: Atraumatic, PERRLA, EOMI, Normocephalic, - - Scleral injection Oral: No Gingival or Mucosal Lesions/ Ulcerations, Dry Mucosa Neck: Supple, No JVD, No Nodes, Trachea Midline Lungs: No rhonchi, No wheeze, No rales, Diminished, - - Dullness to percussion on the right Cardiovascular: Normal S1, Normal S2, No murmurs, No rub noted, No Gallop, Tachycardic Abdomen: Bowel Sounds Present, Soft, Non Tender, Non-Distended, Obese Extremities: No clubbing, No cyanosis, No edema, Capillary Refill Less than 3 Seconds Skin: - - No change compared to previous Musculoskeletal: No Tenderness to Palpation of Joints or Extremities Lymphatic: No Cervical, Supraclavicular, or Inguinal Adenopathy Neurological: Cranial nerves II-XII grossly intact, Neuro grossly intact, Motor Exam 5/5 strength throughout Psych/Mental Status: Anxious, Restless Vital Signs Temp Pulse Resp BP Pulse Ox 35.8 C L 91 22 H 71/59 L 95 10/02/20 04:00 10/02/20 07:00 10/02/20 07:00 10/02/20 07:00 10/02/20 07:00 Oxygen Flow Rate (L/min) 6 Oxygen Delivery Method Bi-pap Weight: 87.8 kg Body Mass Index (BMI) 32.7 Intake and Output for Last 24 Hours 09/30/20 10/01/20 10/02/20 23:59 23:59 23:59 Intake Total 473 / 473 3264.57 / 3264.57 485.32 / 485.32 Output Total 700 / 700 441 / 459 176 / 176 Balance -227 / -227 2823.57 / 2805.57 309.32 / 309.32 Labs (Last 48 Hours) 09/30/20 09/30/20 09/30/20 08:12 08:12 08:12 WBC 38.1 H* RBC 4.77 Hgb 14.4 Hct 46.6 MCV 97.7 MCH 30.2 MCHC 30.9 L RDW Std Deviation 62.6 H RDW Coeff of Katelyn 17.7 H Plt Count 218 MPV 9.9 Immature Gran % (Auto) [employer] Neut % (Auto) [employer] Lymph % (Auto) [employer] Holmes % (Auto) [employer] Eos % (Auto) [employer]ER Baso % (Auto) [employer] Absolute Neuts (auto) 31.6 H Absolute Lymphs (auto) 2.66 Total Counted 100 Neutrophils % (Manual) 79 H Band Neutrophils % 4 Lymphocytes % (Manual) 7 L Monocytes % (Manual) 9 Metamyelocytes % 1 Myelocytes % Nucleated RBC % 0.4 Diff Path Review Reviewed Dohle Bodies 1+ Platelet Estimate ADEQUATE RBC Morphology NORM C+C PT INR APTT Cancelled Fibrinogen D-Dimer Quant (PE/DVT) Specimen Type Sample Site pH Bicarbonate Actual Total CO2 Base Excess O2 Saturation ABG pCO2 ABG pO2 Stu Test O2 Delivery Device Liter Flow Sodium 138 Potassium 4.1 Chloride 102 Carbon Dioxide 27.0 Anion Gap 9 BUN 27 H Creatinine 0.98 Estim Creat Clear Calc 39.54 Est GFR (MDRD) Af Amer 70 Est GFR (MDRD) Non-Af 58 L BUN/Creatinine Ratio 27.4 H Glucose 140 H Lactic Acid Calcium 8.2 L Magnesium Total Bilirubin Direct Bilirubin AST ALT Alkaline Phosphatase Lactate Dehydrogenase Total Creatine Kinase Troponin I 0.039 C-React Prot Ext Range B-Natriuretic Peptide Total Protein Albumin Globulin Albumin/Globulin Ratio Procalcitonin TSH Cortisol Urine Color Urine Clarity Urine pH Ur Specific Hailey Urine Protein Urine Glucose (UA) Urine Ketones Urine Occult Blood Urine Nitrite Urine Bilirubin Urine Urobilinogen Ur Leukocyte Esterase Urine RBC Urine WBC Ur Squamous Epith Cells Ur Renal Epithelial Cell Urine Bacteria Hyaline Casts Urine Mucus MRSA (PCR) POC Glucose 09/30/20 09/30/20 09/30/20 08:12 08:12 08:12 WBC RBC Hgb Hct MCV MCH MCHC RDW Std Deviation RDW Coeff of Katelyn Plt Count MPV Immature Gran % (Auto) Neut % (Auto) Lymph % (Auto) Holmes % (Auto) Eos % (Auto) Baso % (Auto) Absolute Neuts (auto) Absolute Lymphs (auto) Total Counted Neutrophils % (Manual) Band Neutrophils % Lymphocytes % (Manual) Monocytes % (Manual) Metamyelocytes % Myelocytes % Nucleated RBC % Diff Path Review Dohle Bodies Platelet Estimate RBC Morphology PT INR APTT Fibrinogen D-Dimer Quant (PE/DVT) Specimen Type Sample Site pH Bicarbonate Actual Total CO2 Base Excess O2 Saturation ABG pCO2 ABG pO2 Stu Test O2 Delivery Device Liter Flow Sodium Potassium Chloride Carbon Dioxide Anion Gap BUN Creatinine Estim Creat Clear Calc Est GFR (MDRD) Af Amer Est GFR (MDRD) Non-Af BUN/Creatinine Ratio Glucose Lactic Acid Calcium Magnesium 2.3 Total Bilirubin Direct Bilirubin AST ALT Alkaline Phosphatase Lactate Dehydrogenase 383 H Total Creatine Kinase 66 Troponin I C-React Prot Ext Range 33.80 H B-Natriuretic Peptide 53.0 Total Protein Albumin Globulin Albumin/Globulin Ratio Procalcitonin TSH Cortisol Urine Color Urine Clarity Urine pH Ur Specific Hailey Urine Protein Urine Glucose (UA) Urine Ketones Urine Occult Blood Urine Nitrite Urine Bilirubin Urine Urobilinogen Ur Leukocyte Esterase Urine RBC Urine WBC Ur Squamous Epith Cells Ur Renal Epithelial Cell Urine Bacteria Hyaline Casts Urine Mucus MRSA (PCR) POC Glucose 09/30/20 09/30/20 09/30/20 08:12 09:20 11:31 WBC RBC Hgb Hct MCV MCH MCHC RDW Std Deviation RDW Coeff of Katelyn Plt Count MPV Immature Gran % (Auto) Neut % (Auto) Lymph % (Auto) Holmes % (Auto) Eos % (Auto) Baso % (Auto) Absolute Neuts (auto) Absolute Lymphs (auto) Total Counted Neutrophils % (Manual) Band Neutrophils % Lymphocytes % (Manual) Monocytes % (Manual) Metamyelocytes % Myelocytes % Nucleated RBC % Diff Path Review Dohle Bodies Platelet Estimate RBC Morphology PT INR APTT Fibrinogen D-Dimer Quant (PE/DVT) Specimen Type ART Sample Site R Radial pH 7.36 Bicarbonate Actual 24.0 Total CO2 25 Base Excess -1 O2 Saturation 92 L ABG pCO2 42.4 ABG pO2 65 L Stu Test Positive O2 Delivery Device NRB Liter Flow 15.0 Sodium Potassium Chloride Carbon Dioxide Anion Gap BUN Creatinine Estim Creat Clear Calc Est GFR (MDRD) Af Amer Est GFR (MDRD) Non-Af BUN/Creatinine Ratio Glucose Lactic Acid Calcium Magnesium Total Bilirubin 0.30 Direct Bilirubin 0.13 AST 50 H ALT 23 Alkaline Phosphatase 198 H Lactate Dehydrogenase Total Creatine Kinase Troponin I C-React Prot Ext Range B-Natriuretic Peptide Total Protein 6.2 L Albumin 2.4 L Globulin 3.8 Albumin/Globulin Ratio Procalcitonin TSH Cortisol Urine Color Urine Clarity Urine pH Ur Specific Hailey Urine Protein Urine Glucose (UA) Urine Ketones Urine Occult Blood Urine Nitrite Urine Bilirubin Urine Urobilinogen Ur Leukocyte Esterase Urine RBC Urine WBC Ur Squamous Epith Cells Ur Renal Epithelial Cell Urine Bacteria Hyaline Casts Urine Mucus MRSA (PCR) Negative POC Glucose 09/30/20 09/30/20 09/30/20 15:41 15:41 15:41 WBC RBC Hgb Hct MCV MCH MCHC RDW Std Deviation RDW Coeff of Katelyn Plt Count MPV Immature Gran % (Auto) Neut % (Auto) Lymph % (Auto) Holmes % (Auto) Eos % (Auto) Baso % (Auto) Absolute Neuts (auto) Absolute Lymphs (auto) Total Counted Neutrophils % (Manual) Band Neutrophils % Lymphocytes % (Manual) Monocytes % (Manual) Metamyelocytes % Myelocytes % Nucleated RBC % Diff Path Review Dohle Bodies Platelet Estimate RBC Morphology PT 18.6 H INR 1.6 APTT Fibrinogen 371 D-Dimer Quant (PE/DVT) 9.94 H* Specimen Type Sample Site pH Bicarbonate Actual Total CO2 Base Excess O2 Saturation ABG pCO2 ABG pO2 Stu Test O2 Delivery Device Liter Flow Sodium Potassium Chloride Carbon Dioxide Anion Gap BUN Creatinine Estim Creat Clear Calc Est GFR (MDRD) Af Amer Est GFR (MDRD) Non-Af BUN/Creatinine Ratio Glucose Lactic Acid 3.6 H* Calcium Magnesium Total Bilirubin Direct Bilirubin AST ALT Alkaline Phosphatase Lactate Dehydrogenase Total Creatine Kinase Troponin I C-React Prot Ext Range B-Natriuretic Peptide Total Protein Albumin Globulin Albumin/Globulin Ratio Procalcitonin 0.38 H TSH Cortisol Urine Color Urine Clarity Urine pH Ur Specific Hailey Urine Protein Urine Glucose (UA) Urine Ketones Urine Occult Blood Urine Nitrite Urine Bilirubin Urine Urobilinogen Ur Leukocyte Esterase Urine RBC Urine WBC Ur Squamous Epith Cells Ur Renal Epithelial Cell Urine Bacteria Hyaline Casts Urine Mucus MRSA (PCR) POC Glucose 09/30/20 09/30/20 09/30/20 15:41 17:45 20:15 WBC RBC Hgb Hct MCV MCH MCHC RDW Std Deviation RDW Coeff of Katelyn Plt Count MPV Immature Gran % (Auto) Neut % (Auto) Lymph % (Auto) Holmes % (Auto) Eos % (Auto) Baso % (Auto) Absolute Neuts (auto) Absolute Lymphs (auto) Total Counted Neutrophils % (Manual) Band Neutrophils % Lymphocytes % (Manual) Monocytes % (Manual) Metamyelocytes % Myelocytes % Nucleated RBC % Diff Path Review Dohle Bodies Platelet Estimate RBC Morphology PT INR APTT Fibrinogen D-Dimer Quant (PE/DVT) Specimen Type Sample Site pH Bicarbonate Actual Total CO2 Base Excess O2 Saturation ABG pCO2 ABG pO2 Stu Test O2 Delivery Device Liter Flow Sodium Potassium Chloride Carbon Dioxide Anion Gap BUN Creatinine Estim Creat Clear Calc Est GFR (MDRD) Af Amer Est GFR (MDRD) Non-Af BUN/Creatinine Ratio Glucose Lactic Acid 2.3 H* Calcium Magnesium Total Bilirubin Direct Bilirubin AST ALT Alkaline Phosphatase Lactate Dehydrogenase Total Creatine Kinase Troponin I C-React Prot Ext Range B-Natriuretic Peptide Total Protein Albumin Globulin Albumin/Globulin Ratio Procalcitonin TSH 3.83 H Cortisol Urine Color Yellow Urine Clarity Clear Urine pH 5.0 Ur Specific Hailey 1.015 Urine Protein 15 H Urine Glucose (UA) Normal Urine Ketones 5 H Urine Occult Blood 25 H Urine Nitrite Negative Urine Bilirubin Negative Urine Urobilinogen Normal Ur Leukocyte Esterase 25 H Urine RBC 0-5 SEEN Urine WBC 0-5 SEEN Ur Squamous Epith Cells 0 SEEN Ur Renal Epithelial Cell 0-5 SEEN Urine Bacteria 0 SEEN Hyaline Casts 0-5 SEEN Urine Mucus 0 SEEN MRSA (PCR) POC Glucose 09/30/20 10/01/20 10/01/20 22:50 02:30 02:30 WBC 38.9 H* RBC 4.06 L Hgb 12.3 Hct 39.7 MCV 97.8 MCH 30.3 MCHC 31.0 L RDW Std Deviation 63.0 H RDW Coeff of Katelyn 17.7 H Plt Count 213 MPV 10.2 Immature Gran % (Auto) Neut % (Auto) Not Reportable Lymph % (Auto) Holmes % (Auto) Eos % (Auto) Baso % (Auto) Absolute Neuts (auto) 34.2 H Absolute Lymphs (auto) 1.16 Total Counted 100 Neutrophils % (Manual) 76 H Band Neutrophils % 12 H Lymphocytes % (Manual) 3 L Monocytes % (Manual) 5 Metamyelocytes % 2 H Myelocytes % 2 H Nucleated RBC % Diff Path Review Reviewed Dohle Bodies Platelet Estimate ADEQUATE RBC Morphology NORM C+C PT INR APTT Fibrinogen D-Dimer Quant (PE/DVT) Specimen Type Sample Site pH Bicarbonate Actual Total CO2 Base Excess O2 Saturation ABG pCO2 ABG pO2 Stu Test O2 Delivery Device Liter Flow Sodium 140 Potassium 5.1 Chloride 105 Carbon Dioxide 27.0 Anion Gap 8 BUN 39 H Creatinine 1.86 H Estim Creat Clear Calc 20.83 Est GFR (MDRD) Af Amer 34 L Est GFR (MDRD) Non-Af 28 L BUN/Creatinine Ratio 21.0 H Glucose 139 H Lactic Acid Calcium 8.1 L Magnesium 2.9 H Total Bilirubin 0.30 Direct Bilirubin AST 88 H ALT 42 Alkaline Phosphatase 188 H Lactate Dehydrogenase Total Creatine Kinase Troponin I 0.083 H C-React Prot Ext Range B-Natriuretic Peptide Total Protein 5.5 L Albumin 2.2 L Globulin 3.3 Albumin/Globulin Ratio 0.7 L Procalcitonin TSH Cortisol Urine Color Urine Clarity Urine pH Ur Specific Hailey Urine Protein Urine Glucose (UA) Urine Ketones Urine Occult Blood Urine Nitrite Urine Bilirubin Urine Urobilinogen Ur Leukocyte Esterase Urine RBC Urine WBC Ur Squamous Epith Cells Ur Renal Epithelial Cell Urine Bacteria Hyaline Casts Urine Mucus MRSA (PCR) POC Glucose 10/01/20 10/01/20 10/01/20 02:30 05:35 21:47 WBC RBC Hgb Hct MCV MCH MCHC RDW Std Deviation RDW Coeff of Katelyn Plt Count MPV Immature Gran % (Auto) Neut % (Auto) Lymph % (Auto) Holmes % (Auto) Eos % (Auto) Baso % (Auto) Absolute Neuts (auto) Absolute Lymphs (auto) Total Counted Neutrophils % (Manual) Band Neutrophils % Lymphocytes % (Manual) Monocytes % (Manual) Metamyelocytes % Myelocytes % Nucleated RBC % Diff Path Review Dohle Bodies Platelet Estimate RBC Morphology PT INR APTT Fibrinogen D-Dimer Quant (PE/DVT) Specimen Type Sample Site pH Bicarbonate Actual Total CO2 Base Excess O2 Saturation ABG pCO2 ABG pO2 Stu Test O2 Delivery Device Liter Flow Sodium Potassium Chloride Carbon Dioxide Anion Gap BUN Creatinine Estim Creat Clear Calc Est GFR (MDRD) Af Amer Est GFR (MDRD) Non-Af BUN/Creatinine Ratio Glucose Lactic Acid Calcium Magnesium Total Bilirubin Direct Bilirubin AST ALT Alkaline Phosphatase Lactate Dehydrogenase Total Creatine Kinase Troponin I 0.102 H 0.106 H C-React Prot Ext Range B-Natriuretic Peptide Total Protein Albumin Globulin Albumin/Globulin Ratio Procalcitonin TSH Cortisol Urine Color Urine Clarity Urine pH Ur Specific Hailey Urine Protein Urine Glucose (UA) Urine Ketones Urine Occult Blood Urine Nitrite Urine Bilirubin Urine Urobilinogen Ur Leukocyte Esterase Urine RBC Urine WBC Ur Squamous Epith Cells Ur Renal Epithelial Cell Urine Bacteria Hyaline Casts Urine Mucus MRSA (PCR) POC Glucose 132 H 10/02/20 10/02/20 10/02/20 04:10 04:10 04:10 WBC 41.8 H* RBC 3.01 L Hgb 9.6 L Hct 29.8 L MCV 99.0 MCH 31.9 MCHC 32.2 RDW Std Deviation 64.3 H RDW Coeff of Katelyn 18.7 H Plt Count 158 MPV 10.0 Immature Gran % (Auto) Neut % (Auto) Lymph % (Auto) Holmes % (Auto) Eos % (Auto) Baso % (Auto) Absolute Neuts (auto) Absolute Lymphs (auto) Total Counted Neutrophils % (Manual) Band Neutrophils % Lymphocytes % (Manual) Monocytes % (Manual) Metamyelocytes % Myelocytes % Nucleated RBC % Diff Path Review May foll Dohle Bodies Platelet Estimate RBC Morphology PT INR APTT Fibrinogen D-Dimer Quant (PE/DVT) Specimen Type Sample Site pH Bicarbonate Actual Total CO2 Base Excess O2 Saturation ABG pCO2 ABG pO2 Stu Test O2 Delivery Device Liter Flow Sodium 141 Potassium 4.5 Chloride 107 Carbon Dioxide 22.0 Anion Gap 12 BUN 57 H Creatinine 2.67 H Estim Creat Clear Calc 14.51 Est GFR (MDRD) Af Amer 22 L Est GFR (MDRD) Non-Af 18 L BUN/Creatinine Ratio 21.3 H Glucose 114 H Lactic Acid Calcium 6.9 L Magnesium Total Bilirubin 0.50 Direct Bilirubin AST 105 H ALT 53 Alkaline Phosphatase 191 H Lactate Dehydrogenase Total Creatine Kinase Troponin I C-React Prot Ext Range B-Natriuretic Peptide Total Protein 4.5 L Albumin 1.8 L Globulin 2.7 Albumin/Globulin Ratio 0.7 L Procalcitonin TSH Cortisol 11.70 Urine Color Urine Clarity Urine pH Ur Specific Hailey Urine Protein Urine Glucose (UA) Urine Ketones Urine Occult Blood Urine Nitrite Urine Bilirubin Urine Urobilinogen Ur Leukocyte Esterase Urine RBC Urine WBC Ur Squamous Epith Cells Ur Renal Epithelial Cell Urine Bacteria Hyaline Casts Urine Mucus MRSA (PCR) POC Glucose Microbiology 09/30/20 15:41 Blood Culture (Wb) - Pic Blood Culture - Preliminary No growth in 48 hours. 09/30/20 17:45 Urine, Clean Catch Legionella Antigen - Final 09/30/20 17:45 Urine, Clean Catch Streptococcus pneumoniae Antigen (M - Final 09/30/20 11:35 Mucosa - Nasopharyngeal Respiratory Panel (PCR) - Final 09/30/20 08:22 Mucosa - Nose SARS-CoV-2 Antigen (Rapid) - Final SARS-CoV-2 (COVID 19) Clinical Impression(s) from Imaging Studies Chest X-Ray 10/01/20 16:45 IMPRESSION: Moderate right pleural effusion with possible basilar atelectasis/consolidation. Left chest tube with tip extending to the left lung apex. Electronically Signed: Gregorio Patel DO at 18:08 EST Tel [phone], Service support , Medical Necessity - Tobacco Use Smoking Status: Never smoker Assessment/Plan All Active Problems Nausea and vomiting (Acute) Dyspnea and respiratory abnormalities (Acute) Respiratory failure with hypoxia (Acute) COVID-19 (Acute) Pleural effusion (Acute) Acute hypoxemic respiratory failure due to COVID-19 (Acute) DVT (deep venous thrombosis) (Acute) Chronic bilateral pleural effusions (Acute) RECOMMENDATIONS: 1. Continue to hold anticoagulation 2. Possible right thoracentesis 3. Obtain renal evaluation 4. Wean oxygen as tolerated 5. May need to hold remdesivir and continue Decadron from my perspective 6. Transition to hydrocortisone IMPRESSIONS: 1. Acute hypoxic respiratory failure with recurrent bilateral pleural effusions, COVID-19 and associated atelectasis Patient with significant hypoxia on presentation. Patient did receive diuretic therapy with some improvement in oxygenation, but also had significant renal dysfunction. Patient has been placed on Decadron and remdesivir. Anticipate remdesivir will have to be discontinued secondary to renal function. Defer to infectious disease. Will hold anticoagulation as patient may require right-sided thoracentesis if family remains aggressive 2. Recurrent bilateral pleural effusion secondary to metastatic breast cancer Patient with excellent response to left-sided Pleurx catheter. However, right-sided effusion has become more pronounced. Doubt this will require a Pleurx catheter and may be secondary to volume resuscitation. Oxygenation appears to be okay at this time 3. DVT of left upper extremity/metastatic breast cancer Oncology has been consulted. Patient reportedly is still a full code. Patient does have significant leukocytosis at this time, but patient reportedly is also received stimulation therapy. Will attempt to clarify the details. 4. Obesity/advanced age/hypertension/nausea and vomiting Complicates care, management, recovery and prognosis. Discontinue antihypertensives 5. New onset A. fib with RVR Patient currently on amiodarone therapy. Patient was able to cardiovert with digoxin therapy. Cardiology is not currently consulted. Defer to hospitalist. Would not be worried about long-term effects of amiodarone at this time given comorbidities. 6. Acute kidney injury Clinical suspicion for prerenal versus ATN secondary to hypoxia. Family was called this morning and would like to have a nephrology consult for prognostication. Patient may be transition to comfort measures pending their recommendations per the daughter. 7. Shock Clinical suspicion for distributive shock given problems listed above. Patient is currently on pressor agents. Antihypertensives will be held. Blood counts appear to be relatively stable at this time. Patient did have a lower cortisol level, so we will transition from Decadron to Solu-Cortef. Poor prognosis. TIME: 37 minutes critical care time spent addressing patient's acute hypoxic respiratory failure, shock, acute kidney injury review of all data and collaboration with care team (6:30 AM to 7:30 AM) [phone] [id number] Critical care first hour
[2020-10-02] MEDS: Acetaminophen 325 MG Tablet 650 MG PO (08:32)
[2020-10-02] MEDS: Pantoprazole Sodium 20 MG Tablet PO (08:33)
[2020-10-02] MEDS: Aspirin 81 MG TAB.CHEW PO (08:33)
[2020-10-02] MEDS: Gabapentin 300 MG Capsule PO (08:33)
[2020-10-02] MEDS: Enoxaparin 100 MG/ML Syringe 90 MG SC (08:33)
[2020-10-02] MEDS: Magnesium Chloride 64 MG Delay Rel.Tablet 128 MG PO (08:33)
[2020-10-02] MEDS: HYDROmorphone 1 MG/ML Syringe IV ×2 (08:47→16:15)
--- NOTE | 2020-10-02 09:12 | PN_ITS ---
Patient Problems: Active and Suspected Problems Nausea and vomiting (Acute) Respiratory failure with hypoxia (Acute) COVID-19 (Acute) Pleural effusion (Acute) Acute hypoxemic respiratory failure due to COVID-19 (Acute) DVT (deep venous thrombosis) (Acute) Chronic bilateral pleural effusions (Acute) Subjective: She became hypotensive overnight after her Pleurx catheter placement and her renal function has continued to worsen. She states that she does not feel very well and she would be open to speaking with hospice if necessary. Vitals/I&O's: Vital Signs Temp Pulse Resp BP Pulse Ox 96.5 F L 91 22 H 71/59 L 95 10/02/20 04:00 10/02/20 07:00 10/02/20 07:00 10/02/20 07:00 10/02/20 07:00 Oxygen Flow Rate (L/min) 6 Oxygen Delivery Method Bi-pap Weight: 193 lb 9.054 oz Body Mass Index (BMI) 32.7 Intake and Output for Last 24 Hours 09/30/20 10/01/20 10/02/20 23:59 23:59 23:59 Intake Total 473 / 473 3264.57 / 3264.57 485.32 / 485.32 Output Total 700 / 700 441 / 459 176 / 176 Balance -227 / -227 2823.57 / 2805.57 309.32 / 309.32 General: Alert, disoriented, Cooperative HEENT: Atraumatic, PERRLA, EOMI, Normocephalic Oral: Dry Mucosa Neck: Supple, No JVD Lungs: No rhonchi, No wheeze, No rales, Diminished Cardiovascular: Regular rate, Regular Rhythm, Normal S1, Normal S2, No murmurs Abdomen: Soft, Non Tender, Non-Distended, No Hepato-splenomegaly Extremities: No edema, Capillary Refill Less than 3 Seconds Skin: No rashes, No breakdown Neurological: Neuro grossly intact, Sensory exam intact to light touch and pain Psych/Mental Status: Flat affect, restless Microbiology Past 72 Hours 09/30/20 15:41 Blood Culture (Wb) - Pic Blood Culture - Preliminary No growth in 48 hours. 09/30/20 17:45 Urine, Clean Catch Legionella Antigen - Final 09/30/20 17:45 Urine, Clean Catch Streptococcus pneumoniae Antigen (M - Final 09/30/20 11:35 Mucosa - Nasopharyngeal Respiratory Panel (PCR) - Final 09/30/20 08:22 Mucosa - Nose SARS-CoV-2 Antigen (Rapid) - Final SARS-CoV-2 (COVID 19) Laboratory Results 09/30/20 08:12: Diff Path Review Reviewed 10/01/20 02:30: Diff Path Review Reviewed 10/01/20 21:47: POC Glucose 132 H 10/02/20 04:10: WBC 41.8 H*, RBC 3.01 L, Hgb 9.6 L, Hct 29.8 L, MCV 99.0, MCH 31.9, MCHC 32.2, RDW Std Deviation 64.3 H, RDW Coeff of Katelyn 18.7 H, Plt Count 158, MPV 10.0, Diff Path Review May 10/02/20 04:10: Sodium 141, Potassium 4.5, Chloride 107, Carbon Dioxide 22.0, Anion Gap 12, BUN 57 H, Creatinine 2.67 H, Estim Creat Clear Calc 14.51, Est GFR (MDRD) Af Amer 22 L, Est GFR (MDRD) Non-Af 18 L, BUN/Creatinine Ratio 21.3 H, Glucose 114 H, Calcium 6.9 L, Total Bilirubin 0.50, AST 105 H, ALT 53, Alkaline Phosphatase 191 H, Total Protein 4.5 L, Albumin 1.8 L, Globulin 2.7, Albumin/Globulin Ratio 0.7 L 10/02/20 04:10: Cortisol 11.70 Current Medications Acetaminophen (Acetaminophen 325 Mg Tablet) 650 mg PO Q6H PRN PRN PRN Reason: Pain Score 1-10/Temp > 100.7 F Last Admin: 10/02/20 08:32 Dose: 650 mg Documented by: Al Hydroxide/Mg Hydroxide (Mag Hydrox/Al Hydrox/Simeth 30 Ml Udc) 30 ml PO Q6H PRN PRN PRN Reason: Gastric Burning Albuterol Sulfate (Albuterol 2.5 Mg/3 Ml Vial.Neb.) 2.5 mg INHALATION Q2H PRN PRN PRN Reason: SOB/Wheezing Aspirin (Aspirin 81 Mg Tab.Chew) 81 mg PO DAILY@0800 [facility] Last Admin: 10/02/20 08:33 Dose: 81 mg Documented by: Buspirone HCl (Buspirone 5 Mg Tablet) 10 mg PO TID [facility] Last Admin: 10/02/20 06:25 Dose: 10 mg Documented by: Enoxaparin Sodium (Enoxaparin 100 Mg/Ml Syringe) 90 mg SC DAILY [facility] Last Admin: 10/02/20 08:33 Dose: 90 mg Documented by: Gabapentin (Gabapentin 300 Mg Capsule) 300 mg PO TIDPC [facility] Last Admin: 10/02/20 08:33 Dose: 300 mg Documented by: Hydrochlorothiazide (Hydrochlorothiazide 25 Mg Tablet) 25 mg PO DAILY [facility] Last Admin: 10/01/20 08:56 Dose: 25 mg Documented by: Hydrocortisone Sodium Succinate (Hydrocortisone Sod Succinate 100 Mg/2 Ml Vial) 100 mg IV Q8 [facility] Last Admin: 10/02/20 06:26 Dose: 100 mg Documented by: Hydromorphone HCl (Hydromorphone 1 Mg/Ml Syringe) 1 mg IV Q4H PRN PRN PRN Reason: Pain Score 6-10 Last Admin: 10/02/20 08:47 Dose: 1 mg Documented by: Remdesivir 100 mg/ Sodium (Chloride) 250 mls @ 125 mls/hr IV DAILY [facility] Stop: 10/04/20 11:59 Last Infusion: 10/01/20 11:48 Dose: Infused Documented by: Sodium Chloride () 1,000 mls @ 50 mls/hr IV .Q20H [facility] Last Infusion: 10/02/20 04:00 Dose: 50 mls/hr Documented by: Norepinephrine Bitartrate 8 mg (/ Sodium Chloride) 250 mls @ 9.375 mls/hr CONT INF .[id number] [facility]; Protocol Last Titration: 10/02/20 07:00 Dose: 16 mcg/min, 30 mls/hr Documented by: Magnesium Chloride (Magnesium Chloride 64 Mg Delay Rel.Tablet) 128 mg PO DAILY [facility] Last Admin: 10/02/20 08:33 Dose: 128 mg Documented by: Melatonin (Melatonin 3 Mg Tablet) 3 mg PO QHS PRN PRN PRN Reason: INSOMNIA Ondansetron HCl (Ondansetron 4 Mg/2 Ml Vial) 8 mg IV Q8H PRN PRN PRN Reason: NAUSEA/VOMITING Last Admin: 10/01/20 04:02 Dose: 8 mg Documented by: Pantoprazole Sodium (Pantoprazole Sodium 20 Mg Tablet) 20 mg PO DAILY [facility] Last Admin: 10/02/20 08:33 Dose: 20 mg Documented by: Prochlorperazine Edisylate (Prochlorperazine 10 Mg/2 Ml Vial) 5 mg IV Q4H PRN PRN PRN Reason: Breakthrough Nausea/Vomiting Last Admin: 09/30/20 11:21 Dose: 5 mg Documented by: Senna/Docusate Sodium (Senna/Docusate Sodium 1 Tablet) 2 tablet PO BID PRN PRN PRN Reason: Constipation Last Admin: 10/01/20 21:59 Dose: 2 tablet Documented by: STROKE Vital Signs/Narrative: Vital Signs Pulse Resp BP Pulse Ox 10/02/20 07:00 91 22 H 71/59 L 95 10/02/20 06:45 90 20 H 86/45 L 95 10/02/20 06:30 93/49 L 10/02/20 06:15 94/43 L 10/02/20 06:00 89 19 H 80/34 L 95 10/02/20 05:45 92/41 L 10/02/20 05:30 66/44 L 10/02/20 05:15 92/45 L Medical Necessity - Tobacco Use Smoking Status: Never smoker Assessment/Plan All Active Problems Nausea and vomiting (Acute) Dyspnea and respiratory abnormalities (Acute) Respiratory failure with hypoxia (Acute) COVID-19 (Acute) Pleural effusion (Acute) Acute hypoxemic respiratory failure due to COVID-19 (Acute) DVT (deep venous thrombosis) (Acute) Chronic bilateral pleural effusions (Acute) 1. Acute hypoxic respiratory failure secondary to recurrent bilateral malignant pleural effusions and sepsis secondary to COVID-19 pneumonia/metastatic breast cancer/DVT of left upper extremity/ARMIDA -Continue with Eliquis secondary to her both Covid as well as metastatic breast cancer leading to her DVT of her left upper extremity -Tunneled catheter 10/01/2020 -Continue with Levophed and hydrocortisone -Appreciate pulmonology and ID assistance -Continue with Decadron and remdesivir -We will hold IV diuresis secondary to bump in her creatinine from 0.98 to 1.86 to 2.67 today, will consult nephrology -In discussion with the radiation protection engineer, as well as the patient, family would like to have nephrology evaluate her and then depending on that evaluation may proceed with hospice 2. New onset A. fib with RVR/HTN/HLD -Likely secondary to her large pleural effusions -Already anticoagulated with Eliquis will continue when okay with surgery -RVR is likely the culprit for her bump in troponin secondary to demand ischemia -Given now her need for Levophed, will discontinue her amiodarone, Norvasc, and losartan 3. GERD -Stable -Continue with PPI DVT: SCDs Inpatient E&M: [id number] Subs Hosp L2
--- NOTE | 2020-10-02 09:58 | PN.ID_ITS ---
Patient Problems: Active and Suspected Problems Nausea and vomiting (Acute) Respiratory failure with hypoxia (Acute) COVID-19 (Acute) Pleural effusion (Acute) Acute hypoxemic respiratory failure due to COVID-19 (Acute) DVT (deep venous thrombosis) (Acute) Chronic bilateral pleural effusions (Acute) Subjective: Feeling about the same, no fever, still some dyspnea, chest tube in place - Physical Exam Vitals/I&O's: Vital Signs Temp Pulse Resp BP Pulse Ox 96.5 F L 91 22 H 71/59 L 95 10/02/20 04:00 10/02/20 07:00 10/02/20 07:00 10/02/20 07:00 10/02/20 08:50 Oxygen Flow Rate (L/min) 15 Oxygen Delivery Method Nasal Cannula Weight: 87.8 kg Body Mass Index (BMI) 32.7 Intake and Output for Last 24 Hours 09/30/20 10/01/20 10/02/20 23:59 23:59 23:59 Intake Total 473 / 473 3264.57 / 3264.57 485.32 / 485.32 Output Total 700 / 700 441 / 459 176 / 176 Balance -227 / -227 2823.57 / 2805.57 309.32 / 309.32 General: Alert, Cooperative Lungs: Diminished Cardiovascular: Regular rate, Regular Rhythm Abdomen: Soft, Non Tender, Non-Distended Skin: No rashes Microbiology Past 72 Hours 09/30/20 15:41 Blood Culture (Wb) - [facility] Blood Culture - Preliminary No growth in 48 hours. 09/30/20 17:45 Urine, Clean Catch Legionella Antigen - Final 09/30/20 17:45 Urine, Clean Catch Streptococcus pneumoniae Antigen (M - Final 09/30/20 11:35 Mucosa - Nasopharyngeal Respiratory Panel (PCR) - Final 09/30/20 08:22 Mucosa - Nose SARS-CoV-2 Antigen (Rapid) - Final SARS-CoV-2 (COVID 19) Laboratory Results 09/30/20 08:12: Diff Path Review Reviewed 10/01/20 02:30: Diff Path Review Reviewed 10/01/20 21:47: POC Glucose 132 H 10/02/20 04:10: WBC 41.8 H*, RBC 3.01 L, Hgb 9.6 L, Hct 29.8 L, MCV 99.0, MCH 31.9, MCHC 32.2, RDW Std Deviation 64.3 H, RDW Coeff of Katelyn 18.7 H, Plt Count 158, MPV 10.0, Diff Path Review December10/02/20 04:10: Sodium 141, Potassium 4.5, Chloride 107, Carbon Dioxide 22.0, Anion Gap 12, BUN 57 H, Creatinine 2.67 H, Estim Creat Clear Calc 14.51, Est GFR (MDRD) Af Amer 22 L, Est GFR (MDRD) Non-Af 18 L, BUN/Creatinine Ratio 21.3 H, Glucose 114 H, Calcium 6.9 L, Total Bilirubin 0.50, AST 105 H, ALT 53, Alkaline Phosphatase 191 H, Total Protein 4.5 L, Albumin 1.8 L, Globulin 2.7, Albumin/Globulin Ratio 0.7 L 10/02/20 04:10: Cortisol 11.70 Current Medications Acetaminophen (Acetaminophen 325 Mg Tablet) 650 mg PO Q6H PRN PRN PRN Reason: Pain Score 1-10/Temp > 100.7 F Last Admin: 10/02/20 08:32 Dose: 650 mg Documented by: Al Hydroxide/Mg Hydroxide (Mag Hydrox/Al Hydrox/Simeth 30 Ml Udc) 30 ml PO Q6H PRN PRN PRN Reason: Gastric Burning Albuterol Sulfate (Albuterol 2.5 Mg/3 Ml Vial.Neb.) 2.5 mg INHALATION Q2H PRN PRN PRN Reason: SOB/Wheezing Aspirin (Aspirin 81 Mg Tab.Chew) 81 mg PO DAILY@0800 [facility] Last Admin: 10/02/20 08:33 Dose: 81 mg Documented by: Buspirone HCl (Buspirone 5 Mg Tablet) 10 mg PO TID [facility] Last Admin: 10/02/20 06:25 Dose: 10 mg Documented by: Gabapentin (Gabapentin 300 Mg Capsule) 300 mg PO TIDPC [facility] Last Admin: 10/02/20 08:33 Dose: 300 mg Documented by: Hydrocortisone Sodium Succinate (Hydrocortisone Sod Succinate 100 Mg/2 Ml Vial) 100 mg IV Q8 [facility] Last Admin: 10/02/20 06:26 Dose: 100 mg Documented by: Hydromorphone HCl (Hydromorphone 1 Mg/Ml Syringe) 1 mg IV Q4H PRN PRN PRN Reason: Pain Score 6-10 Last Admin: 10/02/20 08:47 Dose: 1 mg Documented by: Sodium Chloride () 1,000 mls @ 50 mls/hr IV .Q20H [facility] Last Admin: 10/02/20 09:16 Dose: Not Given Documented by: Norepinephrine Bitartrate 8 mg (/ Sodium Chloride) 250 mls @ 9.375 mls/hr CONT INF .[id number] [facility]; Protocol Last Titration: 10/02/20 07:00 Dose: 16 mcg/min, 30 mls/hr Documented by: Magnesium Chloride (Magnesium Chloride 64 Mg Delay Rel.Tablet) 128 mg PO DAILY [facility] Last Admin: 10/02/20 08:33 Dose: 128 mg Documented by: Melatonin (Melatonin 3 Mg Tablet) 3 mg PO QHS PRN PRN PRN Reason: INSOMNIA Ondansetron HCl (Ondansetron 4 Mg/2 Ml Vial) 8 mg IV Q8H PRN PRN PRN Reason: NAUSEA/VOMITING Last Admin: 10/01/20 04:02 Dose: 8 mg Documented by: Pantoprazole Sodium (Pantoprazole Sodium 20 Mg Tablet) 20 mg PO DAILY [facility] Last Admin: 10/02/20 08:33 Dose: 20 mg Documented by: Prochlorperazine Edisylate (Prochlorperazine 10 Mg/2 Ml Vial) 5 mg IV Q4H PRN PRN PRN Reason: Breakthrough Nausea/Vomiting Last Admin: 09/30/20 11:21 Dose: 5 mg Documented by: Senna/Docusate Sodium (Senna/Docusate Sodium 1 Tablet) 2 tablet PO BID PRN PRN PRN Reason: Constipation Last Admin: 10/01/20 21:59 Dose: 2 tablet Documented by: Medical Necessity - Tobacco Use Smoking Status: Never smoker Route of nutrition/ use of supplements: [] Nutritional Intake: [] IV Site: [] Flores Catheter: [] - Assessment/Plan Antibiotics: [] Assessment/Plan: [] Active and Suspected Problems Nausea and vomiting (Acute) Respiratory failure with hypoxia (Acute) COVID-19 (Acute) Pleural effusion (Acute) Acute hypoxemic respiratory failure due to COVID-19 (Acute) DVT (deep venous thrombosis) (Acute) Chronic bilateral pleural effusions (Acute) covid with hypoxia, ARMIDA, metastatic breast cancer - dex changed to iv solucortef. Will hold remdesivir due to much worse ARMIDA. D-dimer 10. Sx started around 09/26/20. Anticoag was on hold due to chest tube placement. Will follow
[2020-10-02] MEDS: 0.9% Normal Saline 1,000 ML 50 ML IV (12:00)
--- NOTE | 2020-10-02 12:17 | CON.PCM_ITS ---
Problem List (1) ARMIDA (acute kidney injury) Status: Acute Consultation - Renal 10/02/20 PCP/ Referring MD: Requesting physician: [] Primary care physician: Dr. Amador Oropeza MD Reason for Consultation:: armida - History of Present Illness History of Present Illness: The patient is a 80 year old F who was admitted to the hospital about 2 days ago with complaints of progressively worsening shortness of breath. She has known history of metastatic breast malignancy with malignant pleural effusions. She was getting pleural taps as outpatient. Apparently there was a discussion about possible transition to palliative care as outpatient. She is now admitted here with Covid pneumonia, respiratory failure. Baseline creatinine is normal. She has been anuric since admission and creatinine is now more than 2. Currently on BiPAP. - Allergies Allergies: Allergies cephalexin [From Keflex] Allergy (Verified 09/30/20 08:11) Rash oxycodone Adverse Reaction (Verified 09/30/20 08:11) Vomiting - Current Medications Current Medications: Current Medications Acetaminophen (Acetaminophen 325 Mg Tablet) 650 mg PO Q6H PRN PRN PRN Reason: Pain Score 1-10/Temp > 100.7 F Last Admin: 10/02/20 08:32 Dose: 650 mg Documented by: Al Hydroxide/Mg Hydroxide (Mag Hydrox/Al Hydrox/Simeth 30 Ml Udc) 30 ml PO Q6H PRN PRN PRN Reason: Gastric Burning Albuterol Sulfate (Albuterol 2.5 Mg/3 Ml Vial.Neb.) 2.5 mg INHALATION Q2H PRN PRN PRN Reason: SOB/Wheezing Aspirin (Aspirin 81 Mg Tab.Chew) 81 mg PO DAILY@0800 [facility] Last Admin: 10/02/20 08:33 Dose: 81 mg Documented by: Buspirone HCl (Buspirone 5 Mg Tablet) 10 mg PO TID [facility] Last Admin: 10/02/20 06:25 Dose: 10 mg Documented by: Gabapentin (Gabapentin 300 Mg Capsule) 300 mg PO TIDPC [facility] Last Admin: 10/02/20 08:33 Dose: 300 mg Documented by: Hydrocortisone Sodium Succinate (Hydrocortisone Sod Succinate 100 Mg/2 Ml Vial) 100 mg IV Q8 [facility] Last Admin: 10/02/20 06:26 Dose: 100 mg Documented by: Hydromorphone HCl (Hydromorphone 1 Mg/Ml Syringe) 1 mg IV Q4H PRN PRN PRN Reason: Pain Score 6-10 Last Admin: 10/02/20 08:47 Dose: 1 mg Documented by: Sodium Chloride () 1,000 mls @ 50 mls/hr IV .Q20H [facility] Last Admin: 10/02/20 09:16 Dose: Not Given Documented by: Norepinephrine Bitartrate 8 mg (/ Sodium Chloride) 250 mls @ 9.375 mls/hr CONT INF .[id number] [facility]; Protocol Last Titration: 10/02/20 07:00 Dose: 16 mcg/min, 30 mls/hr Documented by: Vasopressin 20 units/ Sodium (Chloride) 25 mls @ 3 mls/hr IV .Q8H20M [facility] Magnesium Chloride (Magnesium Chloride 64 Mg Delay Rel.Tablet) 128 mg PO DAILY [facility] Last Admin: 10/02/20 08:33 Dose: 128 mg Documented by: Melatonin (Melatonin 3 Mg Tablet) 3 mg PO QHS PRN PRN PRN Reason: INSOMNIA Ondansetron HCl (Ondansetron 4 Mg/2 Ml Vial) 8 mg IV Q8H PRN PRN PRN Reason: NAUSEA/VOMITING Last Admin: 10/01/20 04:02 Dose: 8 mg Documented by: Pantoprazole Sodium (Pantoprazole Sodium 20 Mg Tablet) 20 mg PO DAILY [facility] Last Admin: 10/02/20 08:33 Dose: 20 mg Documented by: Prochlorperazine Edisylate (Prochlorperazine 10 Mg/2 Ml Vial) 5 mg IV Q4H PRN PRN PRN Reason: Breakthrough Nausea/Vomiting Last Admin: 09/30/20 11:21 Dose: 5 mg Documented by: Senna/Docusate Sodium (Senna/Docusate Sodium 1 Tablet) 2 tablet PO BID PRN PRN PRN Reason: Constipation Last Admin: 10/01/20 21:59 Dose: 2 tablet Documented by: - Past Medical History Past Medical History (Chronic Problems): Chronic Problems Metastatic malignant neoplasm to breast (Chronic) Hypertension (Chronic) - Past Surgical History Surgical History: appendectomy, cataract, cholecystectomy, hysterectomy, - - Double mastectomy - Social History Smoking Status: Never smoker Alcohol: None Drugs: None - Family History Maternal History Items: Heart Disease Paternal History Items: - - Alcoholism Review of Systems Unable to obtain accurate/complete ROS d/t: currently on bipap Patient Problems: Active and Suspected Problems Nausea and vomiting (Acute) Respiratory failure with hypoxia (Acute) COVID-19 (Acute) Pleural effusion (Acute) Acute hypoxemic respiratory failure due to COVID-19 (Acute) DVT (deep venous thrombosis) (Acute) Chronic bilateral pleural effusions (Acute) - Physical Exam Vitals/I&O's: Vital Signs Temp Pulse Resp BP Pulse Ox 96.5 F L 91 22 H 71/59 L 95 10/02/20 04:00 10/02/20 08:00 10/02/20 07:00 10/02/20 07:00 10/02/20 08:50 Oxygen Flow Rate (L/min) 15 Oxygen Delivery Method Nasal Cannula Weight: 87.8 kg Body Mass Index (BMI) 32.7 Intake and Output for Last 24 Hours 09/30/20 10/01/20 10/02/20 23:59 23:59 23:59 Intake Total 473 / 473 3264.57 / 3264.57 485.32 / 485.32 Output Total 700 / 700 441 / 459 176 / 176 Balance -227 / -227 2823.57 / 2805.57 309.32 / 309.32 Comment: exam minimized due to covid, on bipap, in respiratory distress, Microbiology Past 72 Hours 09/30/20 15:41 Blood Culture (Wb) - Pic Blood Culture - Preliminary No growth in 48 hours. 09/30/20 17:45 Urine, Clean Catch Legionella Antigen - Final 09/30/20 17:45 Urine, Clean Catch Streptococcus pneumoniae Antigen (M - Final 09/30/20 11:35 Mucosa - Nasopharyngeal Respiratory Panel (PCR) - Final 09/30/20 08:22 Mucosa - Nose SARS-CoV-2 Antigen (Rapid) - Final SARS-CoV-2 (COVID 19) Laboratory Results 10/01/20 21:47: POC Glucose 132 H 10/02/20 04:10: WBC 41.8 H*, RBC 3.01 L, Hgb 9.6 L, Hct 29.8 L, MCV 99.0, MCH 31.9, MCHC 32.2, RDW Std Deviation 64.3 H, RDW Coeff of Katelyn 18.7 H, Plt Count 158, MPV 10.0, Diff Path Review December10/02/20 04:10: Sodium 141, Potassium 4.5, Chloride 107, Carbon Dioxide 22.0, Anion Gap 12, BUN 57 H, Creatinine 2.67 H, Estim Creat Clear Calc 14.51, Est GFR (MDRD) Af Amer 22 L, Est GFR (MDRD) Non-Af 18 L, BUN/Creatinine Ratio 21.3 H, Glucose 114 H, Calcium 6.9 L, Total Bilirubin 0.50, AST 105 H, ALT 53, Alkaline Phosphatase 191 H, Total Protein 4.5 L, Albumin 1.8 L, Globulin 2.7, Albumin/Globulin Ratio 0.7 L 10/02/20 04:10: Cortisol 11.70 Current Medications Acetaminophen (Acetaminophen 325 Mg Tablet) 650 mg PO Q6H PRN PRN PRN Reason: Pain Score 1-10/Temp > 100.7 F Last Admin: 10/02/20 08:32 Dose: 650 mg Documented by: Al Hydroxide/Mg Hydroxide (Mag Hydrox/Al Hydrox/Simeth 30 Ml Udc) 30 ml PO Q6H PRN PRN PRN Reason: Gastric Burning Albuterol Sulfate (Albuterol 2.5 Mg/3 Ml Vial.Neb.) 2.5 mg INHALATION Q2H PRN PRN PRN Reason: SOB/Wheezing Aspirin (Aspirin 81 Mg Tab.Chew) 81 mg PO DAILY@0800 [facility] Last Admin: 10/02/20 08:33 Dose: 81 mg Documented by: Buspirone HCl (Buspirone 5 Mg Tablet) 10 mg PO TID [facility] Last Admin: 10/02/20 06:25 Dose: 10 mg Documented by: Gabapentin (Gabapentin 300 Mg Capsule) 300 mg PO TIDPC [facility] Last Admin: 10/02/20 08:33 Dose: 300 mg Documented by: Hydrocortisone Sodium Succinate (Hydrocortisone Sod Succinate 100 Mg/2 Ml Vial) 100 mg IV Q8 [facility] Last Admin: 10/02/20 06:26 Dose: 100 mg Documented by: Hydromorphone HCl (Hydromorphone 1 Mg/Ml Syringe) 1 mg IV Q4H PRN PRN PRN Reason: Pain Score 6-10 Last Admin: 10/02/20 08:47 Dose: 1 mg Documented by: Sodium Chloride () 1,000 mls @ 50 mls/hr IV .Q20H [facility] Last Admin: 10/02/20 09:16 Dose: Not Given Documented by: Norepinephrine Bitartrate 8 mg (/ Sodium Chloride) 250 mls @ 9.375 mls/hr CONT INF .[id number] [facility]; Protocol Last Titration: 10/02/20 07:00 Dose: 16 mcg/min, 30 mls/hr Documented by: Vasopressin 20 units/ Sodium (Chloride) 25 mls @ 3 mls/hr IV .Q8H20M [facility] Magnesium Chloride (Magnesium Chloride 64 Mg Delay Rel.Tablet) 128 mg PO DAILY [facility] Last Admin: 10/02/20 08:33 Dose: 128 mg Documented by: Melatonin (Melatonin 3 Mg Tablet) 3 mg PO QHS PRN PRN PRN Reason: INSOMNIA Ondansetron HCl (Ondansetron 4 Mg/2 Ml Vial) 8 mg IV Q8H PRN PRN PRN Reason: NAUSEA/VOMITING Last Admin: 10/01/20 04:02 Dose: 8 mg Documented by: Pantoprazole Sodium (Pantoprazole Sodium 20 Mg Tablet) 20 mg PO DAILY [facility] Last Admin: 10/02/20 08:33 Dose: 20 mg Documented by: Prochlorperazine Edisylate (Prochlorperazine 10 Mg/2 Ml Vial) 5 mg IV Q4H PRN PRN PRN Reason: Breakthrough Nausea/Vomiting Last Admin: 09/30/20 11:21 Dose: 5 mg Documented by: Senna/Docusate Sodium (Senna/Docusate Sodium 1 Tablet) 2 tablet PO BID PRN PRN PRN Reason: Constipation Last Admin: 10/01/20 21:59 Dose: 2 tablet Documented by: Assessment/Plan All Active Problems Nausea and vomiting (Acute) Dyspnea and respiratory abnormalities (Acute) Respiratory failure with hypoxia (Acute) COVID-19 (Acute) Pleural effusion (Acute) Acute hypoxemic respiratory failure due to COVID-19 (Acute) DVT (deep venous thrombosis) (Acute) Chronic bilateral pleural effusions (Acute) ARMIDA (acute kidney injury) (Acute) Acute renal failure. Normal creatinine at baseline. At the time of admission she was at her baseline. Has been anuric over the last 2 days. Ongoing events include Covid pneumonia, severe septic shock. Currently on 2 pressors including Levophed and vasopressin. She has an indwelling Flores catheter hence chances of obstruction are low. Most likely ATN secondary to Covid, septic shock, contrast exposure. Essentially anuric. She has known history of metastatic breast cancer with malignant pleural effusions which require pleural tap. There were some discussions about possible hospice even before this event. Currently she is severely ill and is not a candidate for dialysis. Discussed with Dr. Arrieta We will discuss with hospitalist Dr Damon
[2020-10-02 12:50] LABS: Allen Test Positive; Base Excess -6 mmol/L (-2 to +2); Bicarbonate 20.5 mmol/L (22-26); Blood Gas Specimen Type ART; FI02 50; Mode BiLevel; O2 Delivery Device BiPAP; PO2 74 mmHG (75-100); RR 12; SITE R Brach; SO2 93 % (95-99); Total Carbon Dioxide 22 mmol/L; pCO2 42.5 mmHg (35-45); pH 7.29 (7.35-7.45)
[2020-10-02] MEDS: Sodium Bicarbonate 8.4% 50 ML Syringe 50 MEQ IV (13:00)
[2020-10-02 13:29] LABS: Pathologist Review Reviewed
--- NOTE | 2020-10-02 15:05 | CPS ---
Pt just got cleaned up and repositioned, O2 on BIPAP was increased to do a rapid drop in SpO2, pt is recovering steadily from this activity.
--- NOTE | 2020-10-02 16:21 | NURSING ---
1150: Pt took off her bp cuff and nasal canula. Went in to check on pt and she had an increased work of breathing and her BP once ran was low at 61/32 requiring more levophed. Pt placed back on bipap and notified Hospitalist and medical billing supervisor regarding pts declining status. Hospitalist wanted an ABG completed and bicarb given if needed, received the OK to start vasopressin. Hospitalist called the family regarding declining status and asked to come see the pt and make decisions regarding her care. 1350: Family arrived at bedside ( and two daughters) RN went in with family and placed pt on NC. 1408: Nelson SANTANA at bedside to discuss pts status. Family at this time wants to discuss it with each other. 1420: RN went into the room to help adjust pt and family asked questions regarding decision making. At this time family is still unaware of their decision. 1445: Nelson checked on family, no questions at this time. 1550: Nelson SANTANA spoke with family regarding pts status, family made the decision to transition to comfort care. Pressors stopped, monitor placed in privacy setting. 1615: pt given dilaudid to help with pain/comfort. 1625: Pt , time of 1625. 2 RNs listened. Family still at bedside and comforted.
--- NOTE | 2020-10-02 16:47 | PCM.DEATH ---
Preliminary Cause of Septic shock due to COVID-19 pneumonia Date of Admission: 09/30/20 Date of : 10/02/20 - Principle Diagnosis Septic shock Acute hypoxic respiratory failure COVID-19 pneumonia New onset A. fib with RVR Bilateral malignant pleural effusions Left upper extremity DVT ARMIDA Problem List: Active and Suspected Problems Nausea and vomiting (Acute) Respiratory failure with hypoxia (Acute) COVID-19 (Acute) Pleural effusion (Acute) Acute hypoxemic respiratory failure due to COVID-19 (Acute) DVT (deep venous thrombosis) (Acute) Chronic bilateral pleural effusions (Acute) ARMIDA (acute kidney injury) (Acute) Hospital Course Mrs. Moura is an 80-year-old female with a history of metastatic breast cancer with bilateral malignant pleural effusions that she has had to have drained multiple times prior to this hospitalization presented to the hospital with shortness of breath. She tested positive for Covid and was admitted to the ICU. She was started on remdesivir and Decadron and during her course she started having a climbing creatinine secondary to medications, disease process. She also developed A. fib with RVR that initially required digoxin followed by amiodarone. Her A. fib resolved with these interventions. Because of her shortness of breath and her recurrent malignant pleural effusion, more specifically on the left, she had a tunneled catheter placed. After her tunneled catheter was placed and had 800 cc drained from her left lung she became hypotensive and had to be started on vasopressors. Throughout the day today, she required increasing amount of Levophed and had to have vasopressin ordered. Family was called in and we had a discussion about hospice and advanced care planning. They decided ultimately to proceed with hospice. Her IV pressors were discontinued and she was started on Dilaudid as well as Ativan. She had received 1 dose of Dilaudid after the decision was made to proceed with hospice and then 15 to 20 minutes later she at 1625 on 10/02/2020. Inpatient E&M: [id number] [facility]
--- NOTE | 2020-10-02 17:13 | CASEMGMT ---
RN CM Note: Pt and family is here. List of homes given to family. They plan to review and call back to ICU with their choice. Vince STEWARTN RN ACM
== END 2020-10-02 18:30 | DRG 871 ==
LOC: ED 08:35 → ICU 09:24
PROVIDERS: Family Medicine; Internal Medicine Critical Care Medicine; Internal Medicine Infectious Disease; Surgery; Admitting Provider Internal Medicine; Emergency Provider Emergency Medicine; PCP Family Medicine; Visit Provider Family Medicine
PROC: 0W9B30Z Drainage of Left Pleural Cavity with Drainage Device, Percutaneous Approach (ICD-10-PCS; CPT 32550; principal; 2020-10-01 14:30)
DX: A41.89 Other specified sepsis (principal); U07.1 COVID-19; J12.82 Pneumonia due to coronavirus disease 2019; R65.21 Severe sepsis with septic shock; J96.21 Acute and chronic respiratory failure with hypoxia; J91.0 Malignant pleural effusion; I82.622 Acute embolism and thrombosis of deep veins of left upper extremity; N17.9 Acute kidney failure, unspecified; C50.919 Malignant neoplasm of unspecified site of unspecified female breast; I10 Essential (primary) hypertension; C80.1 Malignant (primary) neoplasm, unspecified; Z79.01 Long term (current) use of anticoagulants; I48.91 Unspecified atrial fibrillation; E66.9 Obesity, unspecified; Z68.32 Body mass index [BMI] 32.0-32.9, adult; R59.0 Localized enlarged lymph nodes; K21.9 Gastro-esophageal reflux disease without esophagitis; E78.5 Hyperlipidemia, unspecified; Z90.710 Acquired absence of both cervix and uterus; Z86.718 Personal history of other venous thrombosis and embolism; Z79.02 Long term (current) use of antithrombotics/antiplatelets
CPT/HCPCS: 32555; 36569; 36600; 71045; 71046; 71275; 76000; 80048; 80053; 80076; 81001; 82533; 82550; 82803; 82962; 83605; 83615; 83735; 83880; 84145; 84443; 84484; 85025; 85027; 85379; 85384; 85610; 86140; 87040; 87426; 87449; 87633; 87641; 93005; 93306; 94003; 94660; 96374; 96375; 99251; 99284; 99285; J7030; J7050; J7120; Q9957; Q9967; A4216; C1729; G0463; J1940; J2405; J3490